=== PATIENT | female | born 1940 | race Caucasian/White ===

== ENCOUNTER → 2018-01-22 07:18 | Outpatient (CLI) | payer MEDICARE, OTHER, SELFPAY ==
[2018-01-22 09:21] LABS: Absolute Lymphocyte Count 1.18 X10^3/ul (0.83-4.51); Absolute Neutrophil Count 3.4 X10^3/uL (2.0-7.7); Basophil# 0.03 X10^3/uL; Basophil% 0.6 % (0-1); Eosinophil# 0.23 X10^3/uL; Eosinophils% 4.4 % (0-5); Hematocrit 45.4 % (37-47); Hemoglobin 14.8 g/dl (12.0-15.0); Lymphocyte # 1.18 X10^3/ul (4.0); Lymphocyte % 22.4 % (19-41); Mean Corp Hgb Conc 32.6 g/gl (32-36); Mean Corpuscular Volume 98.3 fL (81-99); Mean Platelet Vol. 10.4 fl (6.2-12.0); Monocyte# 0.41 X10^3/uL; Monocyte% 7.8 % (0-10); Neutrophil # 3.41 X10^3/uL (2.7-7.7); Neutrophil % 64.8 % (47-70); Platelet Count 214 K/mm3 (150-450); RBC Distribution Width SD 46.4 fl (35.1-43.9); Red Blood Count 4.62 M/mm3 (4.2-5.4); White Blood Count 5.3 K/mm3 (4.4-11.0)
[2018-01-22 09:35] LABS: POSITIVE COUNT NO; POSITIVE DIFFERENTIAL NO; POSITIVE MORPHOLOGY NO
[2018-01-22 09:48] LABS: ALB/GLOB Ratio 1.1 RATIO (0.9-2.4); AST(SGOT) 32 U/L (15-37); Alanine Aminotransfer ALT/SGPT 34 U/L (13-56); Albumin, Serum 3.7 g/dL (3.2-5.0); Alkaline Phosphatase 71 U/L (45-117); Anion Gap 5 (5-15); BUN 18 mg/dL (7-18); BUN/Creat Ratio 25.1 RATIO (10-20); Calcium,Total 8.8 mg/dL (8.5-10.1); Chloride 107 mmol/L (98-107); Creatinine, Serum 0.72 mg/dL (0.55-1.02); EST Glomerular Filtration Rate 84 mL/min (>60); Est Glom Filt Rate - Afr Amer 102 mL/min (>60); Globulin 3.4 g/dL (2.2-4.2); Glucose 86 mg/dL (74-106); Potassium 3.7 mmol/L (3.5-5.1); Protein, Total 7.1 g/dL (6.4-8.2); Sodium Level 142 mmol/L (136-145)
== END ==
PROVIDERS: Family Provider Internal Medicine; PCP Internal Medicine; Visit Provider Internal Medicine Rheumatology
DX: H20.9 Unspecified iridocyclitis (principal); H35.063 Retinal vasculitis, bilateral; M18.0 Bilateral primary osteoarthritis of first carpometacarpal joints; M47.892 Other spondylosis, cervical region; Z79.899 Other long term (current) drug therapy
CPT/HCPCS: 36415; 80053; 85025

== ENCOUNTER → 2018-02-28 06:49 | Outpatient (CLI) | payer MEDICARE, OTHER, SELFPAY ==
[2018-02-28 08:09] LABS: AST(SGOT) 29 U/L (15-37); Alanine Aminotransfer ALT/SGPT 29 U/L (13-56); Albumin, Serum 3.8 g/dL (3.2-5.0); Alkaline Phosphatase 68 U/L (45-117); Bilirubin, Direct 0.15 mg/dL (0.00-0.30); Globulin 3.2 g/dL (2.2-4.2)
== END ==
PROVIDERS: Family Provider Internal Medicine; PCP Internal Medicine; Visit Provider Internal Medicine Rheumatology
DX: H20.9 Unspecified iridocyclitis (principal); H35.063 Retinal vasculitis, bilateral; M18.0 Bilateral primary osteoarthritis of first carpometacarpal joints; M47.892 Other spondylosis, cervical region; I10 Essential (primary) hypertension; Z79.899 Other long term (current) drug therapy
CPT/HCPCS: 36415; 80076

== ENCOUNTER → 2018-04-21 07:37 | Outpatient (CLI) | payer MEDICARE, OTHER, SELFPAY ==
[2018-04-21 08:06] LABS: Absolute Lymphocyte Count 1.24 X10^3/ul (0.83-4.51); Basophil# 0.06 X10^3/uL; Eosinophil# 0.21 X10^3/uL; Eosinophils% 3.5 % (0-5); Hemoglobin 13.9 g/dl (12.0-15.0); Lymphocyte # 1.24 X10^3/ul (4.0); Lymphocyte % 20.6 % (19-41); Mean Corp Hgb Conc 33.1 g/gl (32-36); Mean Corpuscular Hgb 32.6 pg (27.0-32.0); Mean Corpuscular Volume 98.6 fL (81-99); Mean Platelet Vol. 10.2 fl (6.2-12.0); Monocyte# 0.47 X10^3/uL; Monocyte% 7.8 % (0-10); Neutrophil # 4.02 X10^3/uL (2.7-7.7); Neutrophil % 66.8 % (47-70); POSITIVE COUNT NO; POSITIVE DIFFERENTIAL NO; POSITIVE MORPHOLOGY NO; Platelet Count 219 K/mm3 (150-450); RBC Distribution Width CV 12.4 % (11.6-14.6); RBC Distribution Width SD 43.8 fl (35.1-43.9); Red Blood Count 4.26 M/mm3 (4.2-5.4)
[2018-04-21 08:29] LABS: ALB/GLOB Ratio 1.2 RATIO (0.9-2.4); AST(SGOT) 31 U/L (15-37); Alanine Aminotransfer ALT/SGPT 32 U/L (13-56); Albumin, Serum 3.5 g/dL (3.2-5.0); Alkaline Phosphatase 67 U/L (45-117); Anion Gap 8 (5-15); BUN 18 mg/dL (7-18); BUN/Creat Ratio 25.6 RATIO (10-20); Calcium,Total 8.5 mg/dL (8.5-10.1); Chloride 109 mmol/L (98-107); EST Glomerular Filtration Rate 86 mL/min (>60); Est Glom Filt Rate - Afr Amer 104 mL/min (>60); Globulin 2.9 g/dL (2.2-4.2); Glucose 106 mg/dL (74-106); Protein, Total 6.4 g/dL (6.4-8.2); Sodium Level 146 mmol/L (136-145)
== END ==
PROVIDERS: Family Provider Internal Medicine; PCP Internal Medicine; Visit Provider Internal Medicine Rheumatology
DX: H20.9 Unspecified iridocyclitis (principal); H35.063 Retinal vasculitis, bilateral; M18.0 Bilateral primary osteoarthritis of first carpometacarpal joints; M47.892 Other spondylosis, cervical region; I10 Essential (primary) hypertension; Z79.899 Other long term (current) drug therapy
CPT/HCPCS: 36415; 80053; 85025

== ENCOUNTER 2018-06-01 10:26 | Emergency (ER) | payer MEDICARE, OTHER, SELFPAY ==
[2018-06-01 10:28] VITALS: BP 169/100; PULSE 74; RESP 16; TEMP 36.7; O2SAT 98; BMI 20.5
--- NOTE | 2018-06-01 10:42 | NURSING ---
no lw or poa
--- NOTE | 2018-06-01 10:57 | ED.DCSUM_ITS ---
- ER Visit Summary Date of Service: 06/01/18 Chief Complaint: Chin laceration History of Present Illness: The patient is a 77 F who sustained a fall on concrete this morning causing abrasions to the bilateral knee and a laceration to her chin. She denies any headache. She denies any jaw pain. No intraoral injuries. No neck pain. Physical Examination: Afebrile vital signs are stable There are bilateral superficial knee abrasions. There is a 1 cm gaping chin laceration. There is no active bleeding. No intraoral trauma noted. The CT sheet for further details Emergency Department Course and Treatment: Was locally anesthetized using 1% lidocaine and washed with Shur-Clens and explored. It was closed using a total of 3 5-0 simple interrupted Ethilon sutures. Wound care discussed with patient. Advised her she does not know her last tetanus shot to call her doctor 's office in the morning and see if they have records. Impression: 1. 1 cm chin laceration with repair This note was generated with [employer] dictation software. It may contain incorrect words, spelling, and punctuation that were not noted in review of the chart prior to signing ED Disposition - Plan for ED Patient: Disposition: Home or Assisted Living Chief Complaint: Laceration Instructions: ED Laceration Chin Sutr Tape Referrals: Anu Hernandez MD [Primary Care Provider] - 7 Days for suture removal
== END 2018-06-01 11:05 | disposition home or self-care (01) ==
PROVIDERS: Emergency Provider Emergency Medicine; Family Provider Internal Medicine; PCP Internal Medicine
DX: S01.81XA Laceration without foreign body of other part of head, initial encounter (principal); S80.212A Abrasion, left knee, initial encounter; S80.211A Abrasion, right knee, initial encounter; I10 Essential (primary) hypertension; Z79.82 Long term (current) use of aspirin; Z79.899 Other long term (current) drug therapy; W18.30XA Fall on same level, unspecified, initial encounter; Y93.01 Activity, walking, marching and hiking; Y92.89 Other specified places as the place of occurrence of the external cause; Y99.8 Other external cause status
CPT/HCPCS: 12011; 99282

== ENCOUNTER → 2018-07-07 07:13 | Outpatient (CLI) | payer MEDICARE, OTHER, SELFPAY ==
[2018-07-07 08:03] LABS: Absolute Lymphocyte Count 1.15 X10^3/ul (0.83-4.51); Absolute Neutrophil Count 3.6 X10^3/uL (2.0-7.7); Basophil# 0.03 X10^3/uL; Basophil% 0.6 % (0-1); Eosinophil# 0.21 X10^3/uL; Eosinophils% 3.9 % (0-5); Hematocrit 41.3 % (37-47); Hemoglobin 13.3 g/dl (12.0-15.0); Lymphocyte # 1.15 X10^3/ul (4.0); Lymphocyte % 21.5 % (19-41); Mean Corp Hgb Conc 32.2 g/gl (32-36); Mean Corpuscular Hgb 31.3 pg (27.0-32.0); Mean Corpuscular Volume 97.2 fL (81-99); Mean Platelet Vol. 10.1 fl (6.2-12.0); Monocyte# 0.38 X10^3/uL; Monocyte% 7.1 % (0-10); Neutrophil # 3.58 X10^3/uL (2.7-7.7); Neutrophil % 66.9 % (47-70); Platelet Count 201 K/mm3 (150-450); RBC Distribution Width CV 12.8 % (11.6-14.6); RBC Distribution Width SD 44.3 fl (35.1-43.9); Red Blood Count 4.25 M/mm3 (4.2-5.4); White Blood Count 5.4 K/mm3 (4.4-11.0)
[2018-07-07 08:05] LABS: POSITIVE COUNT NO; POSITIVE DIFFERENTIAL NO; POSITIVE MORPHOLOGY NO
[2018-07-07 08:31] LABS: ALB/GLOB Ratio 1.2 RATIO (0.9-2.4); AST(SGOT) 32 U/L (15-37); Alanine Aminotransfer ALT/SGPT 30 U/L (13-56); Albumin, Serum 3.5 g/dL (3.2-5.0); Alkaline Phosphatase 60 U/L (45-117); Anion Gap 11 (5-15); BUN 13 mg/dL (7-18); BUN/Creat Ratio 17.2 RATIO (10-20); Calcium,Total 8.5 mg/dL (8.5-10.1); Chloride 109 mmol/L (98-107); Creatinine, Serum 0.75 mg/dL (0.55-1.02); EST Glomerular Filtration Rate 79 mL/min (>60); Est Glom Filt Rate - Afr Amer 96 mL/min (>60); Globulin 2.9 g/dL (2.2-4.2); Glucose 101 mg/dL (74-106); Potassium 3.9 mmol/L (3.5-5.1); Protein, Total 6.4 g/dL (6.4-8.2); Sodium Level 146 mmol/L (136-145)
== END ==
PROVIDERS: Family Provider Internal Medicine; PCP Internal Medicine; Visit Provider Internal Medicine Rheumatology
DX: H20.9 Unspecified iridocyclitis (principal); H35.063 Retinal vasculitis, bilateral; M18.0 Bilateral primary osteoarthritis of first carpometacarpal joints; M47.892 Other spondylosis, cervical region; I10 Essential (primary) hypertension; Z79.899 Other long term (current) drug therapy
CPT/HCPCS: 36415; 80053; 85025

== ENCOUNTER → 2018-10-06 09:20 | Outpatient (CLI) | payer MEDICARE, OTHER, SELFPAY ==
[2018-10-06 09:57] LABS: Absolute Lymphocyte Count 1.28 X10^3/ul (0.83-4.51); Absolute Neutrophil Count 4.7 X10^3/uL (2.0-7.7); Basophil# 0.04 X10^3/uL; Basophil% 0.6 % (0-1); Eosinophil# 0.19 X10^3/uL; Eosinophils% 2.8 % (0-5); Hemoglobin 13.8 g/dl (12.0-15.0); Lymphocyte # 1.28 X10^3/ul (4.0); Lymphocyte % 18.7 % (19-41); Mean Corp Hgb Conc 32.1 g/gl (32-36); Mean Corpuscular Hgb 31.9 pg (27.0-32.0); Mean Corpuscular Volume 99.5 fL (81-99); Monocyte# 0.59 X10^3/uL; Monocyte% 8.6 % (0-10); Neutrophil # 4.72 X10^3/uL (2.7-7.7); Neutrophil % 69.2 % (47-70); Platelet Count 224 K/mm3 (150-450); RBC Distribution Width CV 12.6 % (11.6-14.6); RBC Distribution Width SD 45.7 fl (35.1-43.9); Red Blood Count 4.32 M/mm3 (4.2-5.4); White Blood Count 6.8 K/mm3 (4.4-11.0)
[2018-10-06 09:59] LABS: POSITIVE COUNT NO; POSITIVE DIFFERENTIAL NO; POSITIVE MORPHOLOGY NO
[2018-10-06 10:21] LABS: ALB/GLOB Ratio 1.3 RATIO (0.9-2.4); AST(SGOT) 32 U/L (15-37); Alanine Aminotransfer ALT/SGPT 35 U/L (13-56); Albumin, Serum 3.8 g/dL (3.2-5.0); Alkaline Phosphatase 64 U/L (45-117); Anion Gap 5 (5-15); BUN 17 mg/dL (7-18); BUN/Creat Ratio 25.8 RATIO (10-20); Calcium,Total 9.1 mg/dL (8.5-10.1); Chloride 108 mmol/L (98-107); Creatinine, Serum 0.66 mg/dL (0.55-1.02); EST Glomerular Filtration Rate 93 mL/min (>60); Est Glom Filt Rate - Afr Amer 112 mL/min (>60); Glucose 87 mg/dL (74-106); Protein, Total 6.8 g/dL (6.4-8.2); Sodium Level 141 mmol/L (136-145)
== END ==
PROVIDERS: Family Provider Internal Medicine; PCP Internal Medicine; Referring Provider Internal Medicine Rheumatology; Visit Provider Internal Medicine Rheumatology
DX: H20.9 Unspecified iridocyclitis (principal); H35.063 Retinal vasculitis, bilateral; M18.0 Bilateral primary osteoarthritis of first carpometacarpal joints; M47.892 Other spondylosis, cervical region; I10 Essential (primary) hypertension; Z79.899 Other long term (current) drug therapy
CPT/HCPCS: 36415; 80053; 85025

== ENCOUNTER → 2018-10-09 09:51 | Outpatient (CLI) | payer MEDICARE, OTHER, SELFPAY ==
[2018-10-09 10:44] LABS: Erythrocyte Sedimentation Rate 2 mm/hr (0-30)
[2018-10-09 11:03] LABS: CRP < 2.90 mg/L (0.0-3.0)
== END ==
PROVIDERS: Family Provider Internal Medicine; PCP Internal Medicine
DX: H44.113 Panuveitis, bilateral (principal)
CPT/HCPCS: 36415; 85652; 86140

== ENCOUNTER → 2019-01-05 12:49 | Outpatient (CLI) | payer MEDICARE, OTHER, SELFPAY ==
[2019-01-05 13:31] LABS: Absolute Lymphocyte Count 1.37 X10^3/ul (0.83-4.51); Absolute Neutrophil Count 5.4 X10^3/uL (2.0-7.7); Basophil# 0.03 X10^3/uL; Basophil% 0.4 % (0-1); Eosinophil# 0.11 X10^3/uL; Eosinophils% 1.5 % (0-5); Hematocrit 41.6 % (37-47); Lymphocyte # 1.37 X10^3/ul (4.0); Lymphocyte % 18.4 % (19-41); Mean Corp Hgb Conc 33.7 g/gl (32-36); Mean Corpuscular Hgb 32.6 pg (27.0-32.0); Mean Platelet Vol. 10.5 fl (6.2-12.0); Monocyte# 0.49 X10^3/uL; Monocyte% 6.6 % (0-10); Neutrophil # 5.43 X10^3/uL (2.7-7.7); Neutrophil % 72.8 % (47-70); Platelet Count 231 K/mm3 (150-450); RBC Distribution Width CV 12.3 % (11.6-14.6); RBC Distribution Width SD 41.6 fl (35.1-43.9); Red Blood Count 4.29 M/mm3 (4.2-5.4); White Blood Count 7.5 K/mm3 (4.4-11.0)
[2019-01-05 13:42] LABS: POSITIVE COUNT NO; POSITIVE DIFFERENTIAL NO; POSITIVE MORPHOLOGY NO
[2019-01-05 14:12] LABS: ALB/GLOB Ratio 1.3 RATIO (0.9-2.4); AST(SGOT) 27 U/L (15-37); Alanine Aminotransfer ALT/SGPT 28 U/L (13-56); Albumin, Serum 3.8 g/dL (3.2-5.0); Alkaline Phosphatase 67 U/L (45-117); Anion Gap 9 (5-15); BUN 21 mg/dL (7-18); BUN/Creat Ratio 28.1 RATIO (10-20); Calcium,Total 9.4 mg/dL (8.5-10.1); Chloride 109 mmol/L (98-107); Creatinine, Serum 0.75 mg/dL (0.55-1.02); EST Glomerular Filtration Rate 80 mL/min (>60); Est Glom Filt Rate - Afr Amer 97 mL/min (>60); Glucose 111 mg/dL (74-106); Potassium 3.6 mmol/L (3.5-5.1); Protein, Total 6.8 g/dL (6.4-8.2); Sodium Level 141 mmol/L (136-145)
== END ==
PROVIDERS: Family Provider Internal Medicine; PCP Internal Medicine; Referring Provider Internal Medicine Rheumatology; Visit Provider Internal Medicine Rheumatology
DX: H20.9 Unspecified iridocyclitis (principal); H35.063 Retinal vasculitis, bilateral; M18.0 Bilateral primary osteoarthritis of first carpometacarpal joints; M47.892 Other spondylosis, cervical region; I10 Essential (primary) hypertension; Z79.899 Other long term (current) drug therapy
CPT/HCPCS: 36415; 80053; 85025

== ENCOUNTER → 2019-04-01 | Outpatient (CLI) | payer MEDICARE, OTHER, SELFPAY ==
[2019-04-01 06:51] LABS: Absolute Lymphocyte Count 1.16 X10^3/ul (0.83-4.51); Absolute Neutrophil Count 4.3 X10^3/uL (2.0-7.7); Basophil# 0.04 X10^3/uL; Basophil% 0.7 % (0-1); Eosinophils% 3.3 % (0-5); Hematocrit 43.6 % (37-47); Hemoglobin 14.4 g/dl (12.0-15.0); Lymphocyte # 1.16 X10^3/ul (4.0); Mean Corpuscular Hgb 32.3 pg (27.0-32.0); Mean Corpuscular Volume 97.8 fL (81-99); Mean Platelet Vol. 9.9 fl (6.2-12.0); Monocyte# 0.39 X10^3/uL; Monocyte% 6.4 % (0-10); Neutrophil # 4.32 X10^3/uL (2.7-7.7); Neutrophil % 70.4 % (47-70); Platelet Count 218 K/mm3 (150-450); RBC Distribution Width CV 13.2 % (11.6-14.6); Red Blood Count 4.46 M/mm3 (4.2-5.4); White Blood Count 6.1 K/mm3 (4.4-11.0)
[2019-04-01 06:52] LABS: POSITIVE COUNT NO; POSITIVE DIFFERENTIAL NO; POSITIVE MORPHOLOGY NO
[2019-04-01 07:19] LABS: ALB/GLOB Ratio 1.2 RATIO (0.9-2.4); AST(SGOT) 34 U/L (15-37); Alanine Aminotransfer ALT/SGPT 33 U/L (13-56); Albumin, Serum 3.5 g/dL (3.2-5.0); Alkaline Phosphatase 62 U/L (45-117); Anion Gap 6 (5-15); BUN 28 mg/dL (7-18); BUN/Creat Ratio 36.9 RATIO (10-20); Calcium,Total 8.8 mg/dL (8.5-10.1); Chloride 108 mmol/L (98-107); Creatinine, Serum 0.76 mg/dL (0.55-1.02); EST Glomerular Filtration Rate 78 mL/min (>60); Est Glom Filt Rate - Afr Amer 95 mL/min (>60); Globulin 2.9 g/dL (2.2-4.2); Glucose 119 mg/dL (74-106); Potassium 4.3 mmol/L (3.5-5.1); Protein, Total 6.4 g/dL (6.4-8.2); Sodium Level 143 mmol/L (136-145)
== END | disposition home or self-care (01) ==
LOC: LAB 06:34
PROVIDERS: Family Provider Internal Medicine; PCP Internal Medicine; Referring Provider Internal Medicine Rheumatology; Visit Provider Internal Medicine Rheumatology
DX: H20.9 Unspecified iridocyclitis (principal); H35.063 Retinal vasculitis, bilateral; M18.0 Bilateral primary osteoarthritis of first carpometacarpal joints; M47.892 Other spondylosis, cervical region; I10 Essential (primary) hypertension; Z79.899 Other long term (current) drug therapy
CPT/HCPCS: 36415; 80053; 85025

== ENCOUNTER → 2019-04-15 | Outpatient (CLI) | payer MEDICARE, OTHER, SELFPAY ==
[2019-04-15 12:40] LABS: Synovial Fld Mononuclear WBC % 57.3 %; Synovial Fld Polynuclear WBC # 0.038 10^3/ul; Synovial Fld Polynuclear WBC % 42.7 %
[2019-04-15 13:07] LABS: AUTO B FLUID DILUENT BKGD CT WBC <0.1 RBC <0.01 (W<.1,R<.01); Appearance /Synovial Fluid Clear (CLEAR); Viscosity / Synovial Fluid Liquid (HIGH)
[2019-04-15 13:09] LABS: RBC /Synovial Fluid 1125 /mm3 (0)
[2019-04-15 13:29] LABS: Lymph 40 %; Neutrophil 60 % (0-25)
[2019-04-16 12:23] LABS: Pathologist Comment Reviewed
== END | disposition home or self-care (01) ==
LOC: LABSPEC 12:07
PROVIDERS: Family Provider Internal Medicine; PCP Internal Medicine; Referring Provider Internal Medicine Rheumatology; Visit Provider Internal Medicine Rheumatology
DX: H20.9 Unspecified iridocyclitis (principal); Z79.899 Other long term (current) drug therapy; H35.063 Retinal vasculitis, bilateral; M25.562 Pain in left knee; M18.0 Bilateral primary osteoarthritis of first carpometacarpal joints; M47.892 Other spondylosis, cervical region; I10 Essential (primary) hypertension
CPT/HCPCS: 89050; 89051

== ENCOUNTER → 2019-06-22 | Outpatient (CLI) | payer MEDICARE, OTHER, SELFPAY ==
[2019-06-22 12:34] LABS: Absolute Lymphocyte Count 1.48 X10^3/uL (0.83-4.51); Absolute Neutrophil Count 5.1 X10^3/uL (2.0-7.7); Basophil# 0.03 X10^3/uL; Basophil% 0.4 % (0-1); Eosinophil# 0.18 X10^3/uL; Eosinophils% 2.4 % (0-5); Hemoglobin 15.2 g/dL (12.0-15.0); Lymphocyte # 1.48 X10^3/ul (4.0); Lymphocyte % 20.1 % (19-41); Mean Corpuscular Hgb 32.6 pg (27.0-32.0); Mean Corpuscular Volume 98.7 fL (81-99); Mean Platelet Vol. 10.2 fl (6.2-12.0); Monocyte# 0.52 X10^3/uL; NRBC Flagged by Analyzer 0 % (0-5); Neutrophil # 5.14 X10^3/uL (2.7-7.7); Neutrophil % 69.7 % (47-70); Platelet Count 251 K/mm3 (150-450); RBC Distribution Width CV 12.3 % (11.6-14.6); RBC Distribution Width SD 44.6 fl (35.1-43.9); Red Blood Count 4.66 M/mm3 (4.2-5.4); White Blood Count 7.4 K/mm3 (4.4-11.0)
[2019-06-22 13:03] LABS: ALB/GLOB Ratio 1.2 RATIO (0.9-2.4); AST(SGOT) 33 U/L (15-37); Alanine Aminotransfer ALT/SGPT 34 U/L (13-56); Albumin, Serum 3.7 g/dL (3.2-5.0); Alkaline Phosphatase 79 U/L (45-117); Anion Gap 7 (5-15); BUN 13 mg/dL (7-18); BUN/Creat Ratio 18.9 RATIO (10-20); Calcium,Total 9.7 mg/dL (8.5-10.1); Chloride 107 mmol/L (98-107); Creatinine, Serum 0.69 mg/dL (0.55-1.02); EST Glomerular Filtration Rate 88 mL/min (>60); Est Glom Filt Rate - Afr Amer 106 mL/min (>60); Globulin 3.2 g/dL (2.2-4.2); Glucose 106 mg/dL (74-106); Potassium 4.2 mmol/L (3.5-5.1); Protein, Total 6.9 g/dL (6.4-8.2); Sodium Level 144 mmol/L (136-145)
== END | disposition home or self-care (01) ==
LOC: LAB 10:40
PROVIDERS: Family Provider Internal Medicine; PCP Internal Medicine; Referring Provider Internal Medicine Rheumatology; Visit Provider Internal Medicine Rheumatology
DX: H20.9 Unspecified iridocyclitis (principal); H35.063 Retinal vasculitis, bilateral; M25.562 Pain in left knee; M18.0 Bilateral primary osteoarthritis of first carpometacarpal joints; M47.892 Other spondylosis, cervical region; I10 Essential (primary) hypertension; Z79.899 Other long term (current) drug therapy
CPT/HCPCS: 36415; 80053; 85025

== ENCOUNTER 2019-07-31 10:28 | Outpatient (RCR) | payer MEDICARE, OTHER, SELFPAY ==
[2019-07-31 10:48] LABS: Potassium 3.8 mmol/L (3.5-5.1)
[2019-07-31 11:01] LABS: Hemoglobin A1c 5.3 % (4.2-6.3)
== END 2019-08-01 23:59 ==
LOC: HHLAB 10:28
PROVIDERS: Family Provider Internal Medicine; PCP Internal Medicine; Referring Provider Internal Medicine; Visit Provider Internal Medicine
DX: E87.6 Hypokalemia (principal); H20.9 Unspecified iridocyclitis; H35.069 Retinal vasculitis, unspecified eye; Z79.899 Other long term (current) drug therapy
CPT/HCPCS: 83036; 84132

== ENCOUNTER → 2019-09-28 07:14 | Outpatient (CLI) | payer MEDICARE, OTHER, SELFPAY ==
[2019-09-28 07:36] LABS: Absolute Lymphocyte Count 1.38 X10^3/uL (0.83-4.51); Basophil# 0.05 X10^3/uL; Basophil% 0.7 % (0-1); Eosinophil# 0.26 X10^3/uL; Eosinophils% 3.6 % (0-5); Hematocrit 43.1 % (37-47); Hemoglobin 14.2 g/dL (12.0-15.0); Lymphocyte # 1.38 X10^3/ul (4.0); Mean Corp Hgb Conc 32.9 g/dL (32-36); Mean Corpuscular Hgb 32.9 pg (27.0-32.0); Mean Corpuscular Volume 99.8 fL (81-99); Mean Platelet Vol. 9.6 fl (6.2-12.0); Monocyte# 0.57 X10^3/uL; Monocyte% 7.8 % (0-10); NRBC Flagged by Analyzer 0 % (0-5); Neutrophil # 4.98 X10^3/uL (2.7-7.7); Neutrophil % 68.5 % (47-70); Platelet Count 256 K/mm3 (150-450); RBC Distribution Width CV 12.6 % (11.6-14.6); RBC Distribution Width SD 46.3 fl (35.1-43.9); Red Blood Count 4.32 M/mm3 (4.2-5.4); White Blood Count 7.3 K/mm3 (4.4-11.0)
[2019-09-28 08:01] LABS: ALB/GLOB Ratio 1.1 RATIO (0.9-2.4); AST(SGOT) 27 U/L (15-37); Alanine Aminotransfer ALT/SGPT 29 U/L (13-56); Albumin, Serum 3.9 g/dL (3.2-5.0); Alkaline Phosphatase 82 U/L (45-117); Anion Gap 4 (5-15); BUN 13 mg/dL (7-18); Calcium,Total 9.9 mg/dL (8.5-10.1); Chloride 107 mmol/L (98-107); Creatinine, Serum 0.65 mg/dL (0.55-1.02); EST Glomerular Filtration Rate 94 mL/min (>60); Est Glom Filt Rate - Afr Amer 114 mL/min (>60); Globulin 3.4 g/dL (2.2-4.2); Glucose 81 mg/dL (74-106); Potassium 3.5 mmol/L (3.5-5.1); Protein, Total 7.3 g/dL (6.4-8.2); Sodium Level 141 mmol/L (136-145)
== END ==
PROVIDERS: Family Provider Internal Medicine; PCP Internal Medicine; Referring Provider Internal Medicine Rheumatology; Visit Provider Internal Medicine Rheumatology
DX: H20.9 Unspecified iridocyclitis (principal); H35.063 Retinal vasculitis, bilateral; M25.562 Pain in left knee; M18.0 Bilateral primary osteoarthritis of first carpometacarpal joints; M47.892 Other spondylosis, cervical region; I10 Essential (primary) hypertension; Z79.899 Other long term (current) drug therapy
CPT/HCPCS: 36415; 80053; 85025

== ENCOUNTER → 2019-11-17 09:35 | Outpatient (CLI) | payer MEDICARE, OTHER, SELFPAY ==
--- NOTE | 2019-11-18 09:20 | PFT ---
INTRODUCTION: The patient is a 79-year-old female that presents for pulmonary function studies secondary to a diagnosis of chronic cough. Respiratory therapy reports good patient effort. Bronchodilators were used during testing. INTERPRETATION: Forced expiration spirometry demonstrates no evidence of a large airways obstructive ventilatory defect. There was no significant response to aerosolized bronchodilators, based upon strict ATS criteria. Spirograms are of good quality and plateau normally. Body plethysmography was performed and reveals lung volumes to be within normal limits. Diffusing capacity by single breath CO is also within normal limits at 93% of predicted. IMPRESSION: Normal pulmonary function studies.
== END ==
PROVIDERS: Family Provider Internal Medicine; PCP Internal Medicine; Referring Provider Internal Medicine; Visit Provider Internal Medicine
DX: R05 Cough (principal)
CPT/HCPCS: 94060; 94726; 94729

== ENCOUNTER → 2019-12-22 11:04 | Outpatient (CLI) | payer MEDICARE, OTHER, SELFPAY ==
[2019-12-22 12:43] LABS: Absolute Lymphocyte Count 1.65 X10^3/uL (0.83-4.51); Absolute Neutrophil Count 5.5 X10^3/uL (2.0-7.7); Basophil# 0.08 X10^3/uL; Eosinophil# 0.15 X10^3/uL; Eosinophils% 1.8 % (0-5); Hematocrit 40.4 % (37-47); Hemoglobin 13.4 g/dL (12.0-15.0); Lymphocyte # 1.65 X10^3/ul (4.0); Lymphocyte % 20.2 % (19-41); Mean Corp Hgb Conc 33.2 g/dL (32-36); Mean Corpuscular Hgb 31.9 pg (27.0-32.0); Mean Corpuscular Volume 96.2 fL (81-99); Mean Platelet Vol. 10.6 fl (6.2-12.0); Monocyte# 0.69 X10^3/uL; Monocyte% 8.5 % (0-10); NRBC Flagged by Analyzer 0 % (0-5); Neutrophil # 5.54 X10^3/uL (2.7-7.7); Platelet Count 218 K/mm3 (150-450); RBC Distribution Width CV 12.5 % (11.6-14.6); RBC Distribution Width SD 43.7 fl (35.1-43.9); White Blood Count 8.2 K/mm3 (4.4-11.0)
[2019-12-22 13:07] LABS: ALB/GLOB Ratio 1.1 RATIO (0.9-2.4); AST(SGOT) 26 U/L (15-37); Alanine Aminotransfer ALT/SGPT 32 U/L (13-56); Albumin, Serum 3.6 g/dL (3.2-5.0); Alkaline Phosphatase 79 U/L (45-117); Anion Gap 6 (5-15); BUN 16 mg/dL (7-18); BUN/Creat Ratio 20.8 RATIO (10-20); Calcium,Total 9.2 mg/dL (8.5-10.1); Chloride 106 mmol/L (98-107); Creatinine, Serum 0.77 mg/dL (0.55-1.02); EST Glomerular Filtration Rate 77 mL/min (>60); Est Glom Filt Rate - Afr Amer 93 mL/min (>60); Globulin 3.2 g/dL (2.2-4.2); Glucose 103 mg/dL (74-106); Potassium 3.7 mmol/L (3.5-5.1); Protein, Total 6.8 g/dL (6.4-8.2); Sodium Level 138 mmol/L (136-145)
== END ==
PROVIDERS: PCP Internal Medicine; Referring Provider Internal Medicine Rheumatology; Visit Provider Internal Medicine Rheumatology
DX: H20.9 Unspecified iridocyclitis (principal); H35.063 Retinal vasculitis, bilateral; M18.0 Bilateral primary osteoarthritis of first carpometacarpal joints; M17.0 Bilateral primary osteoarthritis of knee; M47.892 Other spondylosis, cervical region; Z79.899 Other long term (current) drug therapy
CPT/HCPCS: 36415; 80053; 85025

== ENCOUNTER → 2020-03-22 | Outpatient (CLI) | payer MEDICARE, OTHER, SELFPAY ==
[2020-03-22 14:40] LABS: Absolute Lymphocyte Count 1.38 X10^3/uL (0.83-4.51); Absolute Neutrophil Count 4.1 X10^3/uL (2.0-7.7); Basophil# 0.04 X10^3/uL; Basophil% 0.6 % (0-1); Eosinophil# 0.18 X10^3/uL; Eosinophils% 2.9 % (0-5); Hematocrit 42.8 % (37-47); Hemoglobin 13.9 g/dL (12.0-15.0); Lymphocyte # 1.38 X10^3/ul (4.0); Lymphocyte % 22.1 % (19-41); Mean Corp Hgb Conc 32.5 g/dL (32-36); Mean Corpuscular Volume 98.6 fL (81-99); Mean Platelet Vol. 10.4 fl (6.2-12.0); Monocyte# 0.52 X10^3/uL; Monocyte% 8.3 % (0-10); NRBC Flagged by Analyzer 0 % (0-5); Neutrophil % 65.8 % (47-70); Platelet Count 222 K/mm3 (150-450); RBC Distribution Width CV 12.5 % (11.6-14.6); RBC Distribution Width SD 44.7 fl (35.1-43.9); Red Blood Count 4.34 M/mm3 (4.2-5.4); White Blood Count 6.2 K/mm3 (4.4-11.0)
[2020-03-22 15:05] LABS: ALB/GLOB Ratio 1.2 RATIO (0.9-2.4); AST(SGOT) 32 U/L (15-37); Alanine Aminotransfer ALT/SGPT 32 U/L (13-56); Albumin, Serum 3.8 g/dL (3.2-5.0); Alkaline Phosphatase 72 U/L (45-117); Anion Gap 4 (5-15); BUN 18 mg/dL (7-18); BUN/Creat Ratio 24.2 RATIO (10-20); Calcium,Total 10.3 mg/dL (8.5-10.1); Chloride 109 mmol/L (98-107); Creatinine, Serum 0.74 mg/dL (0.55-1.02); EST Glomerular Filtration Rate 80 mL/min (>60); Est Glom Filt Rate - Afr Amer 97 mL/min (>60); Globulin 3.1 g/dL (2.2-4.2); Glucose 109 mg/dL (74-106); Potassium 3.6 mmol/L (3.5-5.1); Protein, Total 6.9 g/dL (6.4-8.2); Sodium Level 141 mmol/L (136-145)
== END | disposition home or self-care (01) ==
LOC: MTLAB 11:25
PROVIDERS: PCP Internal Medicine; Referring Provider Internal Medicine Rheumatology; Visit Provider Internal Medicine Rheumatology
DX: H20.9 Unspecified iridocyclitis (principal); H35.063 Retinal vasculitis, bilateral; M18.0 Bilateral primary osteoarthritis of first carpometacarpal joints; M17.0 Bilateral primary osteoarthritis of knee; M47.892 Other spondylosis, cervical region; I10 Essential (primary) hypertension; H40.9 Unspecified glaucoma; Z79.899 Other long term (current) drug therapy
CPT/HCPCS: 36415; 80053; 85025

== ENCOUNTER → 2020-06-14 | Outpatient (CLI) | payer MEDICARE, OTHER, SELFPAY ==
[2020-06-14 13:04] LABS: Absolute Lymphocyte Count 1.15 X10^3/uL (0.83-4.51); Absolute Neutrophil Count 5.2 X10^3/uL (2.0-7.7); Basophil# 0.04 X10^3/uL; Basophil% 0.6 % (0-1); Eosinophil# 0.17 X10^3/uL; Eosinophils% 2.4 % (0-5); Hematocrit 41.8 % (37-47); Hemoglobin 13.3 g/dL (12.0-15.0); Lymphocyte # 1.15 X10^3/ul (4.0); Lymphocyte % 16.2 % (19-41); Mean Corp Hgb Conc 31.8 g/dL (32-36); Mean Corpuscular Hgb 31.8 pg (27.0-32.0); Mean Platelet Vol. 10.4 fl (6.2-12.0); Monocyte# 0.52 X10^3/uL; Monocyte% 7.3 % (0-10); NRBC Flagged by Analyzer 0 % (0-5); Neutrophil % 73.2 % (47-70); Platelet Count 228 K/mm3 (150-450); RBC Distribution Width CV 12.2 % (11.6-14.6); RBC Distribution Width SD 43.9 fl (35.1-43.9); Red Blood Count 4.18 M/mm3 (4.2-5.4); White Blood Count 7.1 K/mm3 (4.4-11.0)
[2020-06-14 13:16] LABS: ALB/GLOB Ratio 1.2 RATIO (0.9-2.4); AST(SGOT) 24 U/L (15-37); Alanine Aminotransfer ALT/SGPT 24 U/L (13-56); Albumin, Serum 3.5 g/dL (3.2-5.0); Alkaline Phosphatase 64 U/L (45-117); Anion Gap 6 (5-15); BUN 18 mg/dL (7-18); BUN/Creat Ratio 20.9 RATIO (10-20); Calcium,Total 8.7 mg/dL (8.5-10.1); Chloride 105 mmol/L (98-107); Creatinine, Serum 0.86 mg/dL (0.55-1.02); EST Glomerular Filtration Rate 68 mL/min (>60); Est Glom Filt Rate - Afr Amer 82 mL/min (>60); Globulin 2.8 g/dL (2.2-4.2); Glucose 92 mg/dL (74-106); Potassium 3.4 mmol/L (3.5-5.1); Protein, Total 6.3 g/dL (6.4-8.2); Sodium Level 137 mmol/L (136-145)
== END | disposition home or self-care (01) ==
LOC: MTLAB 09:40
PROVIDERS: PCP Internal Medicine; Referring Provider Internal Medicine Rheumatology; Visit Provider Internal Medicine Rheumatology
DX: H20.9 Unspecified iridocyclitis (principal); H35.063 Retinal vasculitis, bilateral; M18.0 Bilateral primary osteoarthritis of first carpometacarpal joints; M17.0 Bilateral primary osteoarthritis of knee; M47.892 Other spondylosis, cervical region; I10 Essential (primary) hypertension; H40.9 Unspecified glaucoma; Z79.899 Other long term (current) drug therapy
CPT/HCPCS: 36415; 80053; 85025

== ENCOUNTER → 2020-09-12 | Outpatient (CLI) | payer MEDICARE, OTHER, SELFPAY ==
[2020-09-12 12:47] LABS: Absolute Lymphocyte Count 1.08 X10^3/uL (0.83-4.51); Absolute Neutrophil Count 4.6 X10^3/uL (2.0-7.7); Basophil# 0.06 X10^3/uL; Eosinophil# 0.18 X10^3/uL; Eosinophils% 2.9 % (0-5); Hematocrit 40.7 % (37-47); Hemoglobin 12.9 g/dL (12.0-15.0); Lymphocyte # 1.08 X10^3/ul (4.0); Lymphocyte % 17.3 % (19-41); Mean Corp Hgb Conc 31.7 g/dL (32-36); Mean Corpuscular Hgb 31.9 pg (27.0-32.0); Mean Corpuscular Volume 100.7 fL (81-99); Mean Platelet Vol. 9.6 fl (6.2-12.0); Monocyte# 0.33 X10^3/uL; Monocyte% 5.3 % (0-10); NRBC Flagged by Analyzer 0 % (0-5); Neutrophil # 4.58 X10^3/uL (2.7-7.7); Neutrophil % 73.2 % (47-70); Platelet Count 237 K/mm3 (150-450); RBC Distribution Width CV 12.7 % (11.6-14.6); RBC Distribution Width SD 47.1 fl (35.1-43.9); Red Blood Count 4.04 M/mm3 (4.2-5.4); White Blood Count 6.3 K/mm3 (4.4-11.0)
[2020-09-12 13:16] LABS: AST(SGOT) 29 U/L (15-37); Alanine Aminotransfer ALT/SGPT 27 U/L (13-56); Albumin, Serum 3.2 g/dL (3.2-5.0); Alkaline Phosphatase 74 U/L (45-117); Anion Gap 4 (5-15); BUN 15 mg/dL (7-18); BUN/Creat Ratio 19.4 RATIO (10-20); Calcium,Total 8.7 mg/dL (8.5-10.1); Chloride 108 mmol/L (98-107); Creatinine, Serum 0.77 mg/dL (0.55-1.02); EST Glomerular Filtration Rate 77 mL/min (>60); Est Glom Filt Rate - Afr Amer 93 mL/min (>60); Globulin 3.2 g/dL (2.2-4.2); Glucose 178 mg/dL (74-106); Potassium 3.7 mmol/L (3.5-5.1); Protein, Total 6.4 g/dL (6.4-8.2); Sodium Level 140 mmol/L (136-145)
== END | disposition home or self-care (01) ==
LOC: MTLAB 09:50
PROVIDERS: PCP Family Medicine; Referring Provider Internal Medicine Rheumatology; Visit Provider Internal Medicine Rheumatology
DX: H20.9 Unspecified iridocyclitis (principal); H35.063 Retinal vasculitis, bilateral; M18.0 Bilateral primary osteoarthritis of first carpometacarpal joints; M17.0 Bilateral primary osteoarthritis of knee; M47.892 Other spondylosis, cervical region; I10 Essential (primary) hypertension; H40.9 Unspecified glaucoma; Z79.899 Other long term (current) drug therapy
CPT/HCPCS: 36415; 80053; 85025

== ENCOUNTER → 2020-12-05 08:19 | Outpatient (CLI) | payer MEDICARE, OTHER, SELFPAY ==
[2020-12-05 10:10] LABS: Absolute Lymphocyte Count 1.12 X10^3/uL (0.83-4.51); Absolute Neutrophil Count 4.8 X10^3/uL (2.0-7.7); Basophil# 0.06 X10^3/uL; Basophil% 0.9 % (0-1); Eosinophil# 0.23 X10^3/uL; Eosinophils% 3.4 % (0-5); Hematocrit 41.9 % (37-47); Hemoglobin 13.3 g/dL (12.0-15.0); Lymphocyte # 1.12 X10^3/ul (4.0); Lymphocyte % 16.3 % (19-41); Mean Corp Hgb Conc 31.7 g/dL (32-36); Mean Corpuscular Hgb 31.5 pg (27.0-32.0); Mean Corpuscular Volume 99.3 fL (81-99); Mean Platelet Vol. 10.1 fl (6.2-12.0); Monocyte# 0.61 X10^3/uL; Monocyte% 8.9 % (0-10); NRBC Flagged by Analyzer 0 % (0-5); Neutrophil # 4.82 X10^3/uL (2.7-7.7); Neutrophil % 70.2 % (47-70); Platelet Count 231 K/mm3 (150-450); RBC Distribution Width CV 12.4 % (11.6-14.6); RBC Distribution Width SD 44.4 fl (35.1-43.9); Red Blood Count 4.22 M/mm3 (4.2-5.4); White Blood Count 6.9 K/mm3 (4.4-11.0)
[2020-12-05 10:28] LABS: ALB/GLOB Ratio 1.1 RATIO (0.9-2.4); AST(SGOT) 37 U/L (15-37); Alanine Aminotransfer ALT/SGPT 36 U/L (13-56); Albumin, Serum 3.5 g/dL (3.2-5.0); Alkaline Phosphatase 80 U/L (45-117); Anion Gap 4 (5-15); BUN 16 mg/dL (7-18); BUN/Creat Ratio 22.4 RATIO (10-20); Calcium,Total 8.8 mg/dL (8.5-10.1); Chloride 109 mmol/L (98-107); Creatinine, Serum 0.71 mg/dL (0.55-1.02); EST Glomerular Filtration Rate 84 mL/min (>60); Est Glom Filt Rate - Afr Amer 102 mL/min (>60); Globulin 3.1 g/dL (2.2-4.2); Glucose 112 mg/dL (74-106); Potassium 3.9 mmol/L (3.5-5.1); Protein, Total 6.6 g/dL (6.4-8.2); Sodium Level 141 mmol/L (136-145)
== END ==
PROVIDERS: PCP Family Medicine; Referring Provider Internal Medicine Rheumatology; Visit Provider Internal Medicine Rheumatology
DX: H20.9 Unspecified iridocyclitis (principal); H35.063 Retinal vasculitis, bilateral; M18.0 Bilateral primary osteoarthritis of first carpometacarpal joints; M17.0 Bilateral primary osteoarthritis of knee; M47.892 Other spondylosis, cervical region; I10 Essential (primary) hypertension; H40.9 Unspecified glaucoma; Z79.899 Other long term (current) drug therapy
CPT/HCPCS: 36415; 80053; 85025

== ENCOUNTER → 2021-02-07 | Outpatient (CLI) | payer MEDICARE, OTHER, SELFPAY ==
[2021-02-14 13:56] LABS: HPV APTIMA, High Risk Positive (Negative)
[2021-02-14 13:57] LABS: HPV Reflexed? YES, CHARGE PATIENT
== END | disposition home or self-care (01) ==
LOC: LABSPEC 02-20 13:27
PROVIDERS: PCP Family Medicine; Visit Provider Family Medicine
DX: N95.0 Postmenopausal bleeding (principal); Z12.4 Encounter for screening for malignant neoplasm of cervix; Z87.42 Personal history of other diseases of the female genital tract
CPT/HCPCS: 87624; 88175; G0145

== ENCOUNTER → 2021-02-21 14:38 | Outpatient (CLI) | payer MEDICARE, OTHER, SELFPAY ==
--- NOTE | 2021-02-21 15:00 | PET_ITS ---
EXAMINATION: FDG PET/CT INDICATIONS: A 80-year-old female with history of cervical carcinoma presenting for initial staging examination. COMPARISON EXAMINATION: None available INDEX LESION SIZE SUV INTERPRETATION Lower pelvis, uterine cervix 30.7 x 31.1-mm (frame 50) 14.1 Fulfills quantitative criteria for viable neoplasm Right upper lung-right upper lobe 1.5 (max) Quantitative criteria for viable neoplasm are not fulfilled, sequential radiologic investigation recommended. TECHNIQUE: Following the intravenous administration of 14.7 mCi of F-18 deoxyglucose via the left antecubital fossa, multiplanar image acquisitions of the neck, chest, abdomen and pelvis to level of mid thigh, obtained at one hour post radiopharmaceutical administration contemporaneously interpreted with the current CT of the neck, chest, abdomen and pelvis to level of mid thigh, dated 02/21/21 via coregistration reveal: SERUM GLUCOSE LEVEL: 72 mg/dl. HEIGHT: 66 inches. WEIGHT: 117 lbs. FINDINGS: 1. Focal increased glucose metabolism is defined in the lower left paramedian pelvic mesentery in the distribution of the uterine cervix generating a calculated maximal standard uptake value of 14.1. The maximal axial diameter of the corresponding metabolic, morphologic abnormality on review of CT of the pelvis dated 02/21/21 is 30.7-mm (transverse) x 31.1-mm (AP). 2. There is focal increased glucose concentration observed in the right upper posterior lung-right upper lobe generating a calculated maximal standard uptake value of 1.5. Quantitative criteria for neoplasm are not fulfilled. 3. Normal physiologic distribution of the radiopharmaceutical is apparent in the hepatic (2.5) and splenic parenchyma, both renal units, bladder and visualized intestinal tract. The visualized portion of the cerebral cortex demonstrate symmetric and preserved glucose metabolism. Diffuse radiopharmaceutical concentration is noted in all four quadrants of the abdomen and pelvis. Prominent radiopharmaceutical concentration observed in the left upper pelvic mesentery appears associated with the left ureter most consistent with physiologic tracer distribution. Pertinent CT findings are as follows: CHEST: Coronary arterial calcification is observed. Atherosclerotic calcification is defined in the thoracic aorta. The maximal axial diameter of the ascending thoracic aorta is 42.6-mm. Right and left axillary and scattered mediastinal soft tissue densities demonstrate no evidence of increased tracer uptake. There are no additional parenchymal densities-nodules defined in the right and left hemithorax with discernible increased FDG concentration. A linear density noted in the left lower anterolateral lung field is non-glucose avid. ABDOMEN AND PELVIS: There is atherosclerotic calcification defined in the abdominal aorta without evidence of dilatation-aneurysm formation. Pelvic arterial calcification is defined. There is evidence of apparent cholelithiasis. Bilateral inguinal soft tissue densities with fatty hilus reveal no evidence of increased tracer uptake. There is an apparent fluid density noted in the central aspect of the uterus without evidence of increased tracer uptake. SKELETAL: Degenerative changes are noted in the cervical, thoracic and lumbar spine without evidence of increased radiopharmaceutical concentration. PET/PET/CT Tumor Base -Thigh Init IMPRESSION: 1. ABNORMAL EXAMINATION INDICATIVE OF MALIGNANT VIABLE NEOPLASM. 2. Increased FDG concentration observed in the region of the uterine cervix fulfills quantitative criteria for viable neoplasm and is most consistent with the site of histologic confirmed primary cervical carcinoma. 3. Enhanced tracer uptake noted in the right upper lung-right upper lobe does not fulfill quantitative criteria for viable neoplasm. (Lema et al, Annals of Internal Medicine, 138:724, 2003). 4. Metabolic and/or anatomic stability may be ensured in the right upper lung-right upper lobe abnormality with repeat FDG PET study and/or CT of the thorax in 9-12 weeks to ensure stability, involution. (Xiu, Journal of Nuclear Medicine 45:88, P2004 Edilberto, Seminars in Thoracic and Cardiovascular Surgery 14:292, 2002). Electronic Signature Catarino Parker D.O. Accurate Quantification of SUVs for this report are calculated using the exclusive [employer] Technology.??Exclusive U.S. Patent [employer]? Technology (U.S. Patent No. [id number] [id number]). Electronically Signed: Catarino Parker DO at 21:57 EDT Tel , Service support ,
== END ==
LOC: ONC 14:39
PROVIDERS: PCP Family Medicine; Referring Provider Obstetrics & Gynecology Gynecologic Oncology; Visit Provider Obstetrics & Gynecology Gynecologic Oncology
DX: C56.1 Malignant neoplasm of right ovary (principal); C53.9 Malignant neoplasm of cervix uteri, unspecified
CPT/HCPCS: 78815; A9552

== ENCOUNTER 2021-03-05 14:12 | Emergency (ER) | payer MEDICARE, OTHER, SELFPAY ==
[2021-03-05 14:13] VITALS: BP 146/86; PULSE 115; RESP 18; TEMP 36.8; O2SAT 99; BMI 18.8
--- NOTE | 2021-03-05 15:01 | ED.RN ---
DR VO PAGED THROUGH [facility]
--- NOTE | 2021-03-05 15:39 | ED.VIS.GEN ---
History of Present Illness Chief Complaint: Wound Check Informant: Patient Narrative: 80-year-old female presenting with bleeding from her incision site. Patient had radical hysterectomy on Saturday at [facility]. She states that she was placed on Eliquis postop to prevent DVTs because she was not there immobile. She has no history of DVT/PE. Patient states that they found a spot on her uterus and were concerned for malignancy therefore they removed her uterus and ovaries. Patient will follow up later for radiation treatment. Patient states at this time she has no bleeding. She has no pain. She does not have nausea or vomiting. She is not dizzy or lightheaded. Past Medical History - Allergies and Home Meds Allergies/Adverse Reactions: Allergies ibuprofen Adverse Reaction (Verified 03/05/21 14:16) Nausea Opioids - Morphine Analogues Adverse Reaction (Verified 03/05/21 14:16) Other simvastatin Adverse Reaction (Verified 03/05/21 14:16) Other Primary Care Physician: Rosita Lentz MD [Primary Care Provider] - Past Medical History: - - Hypertension, osteoporosis, unknown uterine cancer Surgical History: - - Radical hysterectomy/oophorectomy Lives: Spouse/ Significant Other Smoking Status: Never smoker Review of Systems General: Denies: Chills, Fever, Sweats Eyes: Denies: Visual changes - bilaterally, Diplopia ENT: Denies: Rhinorrhea, Sore throat Cardiovascular: Denies: Chest pain, Palpitations Respiratory: Denies: Dyspnea, Cough, Dyspnea on exertion Gastrointestinal: Denies: Abdominal pain, Nausea, Vomiting, Diarrhea, Melena, Hematochezia Genitourinary: Denies: Dysuria, Hematuria, Frequency Musculoskeletal: Denies: Back pain, Extremity Pain Skin: Reports: - - Bleeding from right side of incision on her lower abdomen. Resolved.. Denies: Rash, Abscess Neurological: Denies: Headache, Weakness, Numbness Psych: Denies: Depression, Anxiety Hematologic: Reports: Easy bruising, Easy bleeding Physical Exam Vital Signs/Narrative: Vital Signs Temp Pulse Resp BP Pulse Ox 03/05/21 14:13 98.3 F 115 H 18 146/86 H 99 Inital Vital Signs reviewed: Yes General: Well nourished, No Acute Distress Head: Normocephalic, Atraumatic Eyes: Perrl, EOMI ENT: Moist mucous membranes, Nasal congestion Cardiovascular: Regular rate, Regular rhythm Respiratory: No distress, CTA bilaterally Skin: Pallor, - - Large horizontal incisional wound with margins well approximated with exception of mild dehiscence on the right side of the wound. There is no active bleeding. There is no sign of cellulitis. There is ecchymosis around the surgical site.. Negative for: No rash, Cyanosis Neurological: Alert, Oriented x3, Cranial nerves II-XII grossly intact Psychological: Normal affect, Normal Mood Diagnostic/Tx/Re-eval - Medical Decision Making 80-year-old female presenting for evaluation because she had some bleeding from her incision site. This is resolved. She has no systemic signs or symptoms. I did give her surgeon who recommended discontinuing the Eliquis now that she is more mobile. He states to have her call at 8:30 in the morning and he will get her in the office tomorrow to look at her incision site. Patient was informed of these instructions. She is given return precautions. She stable for discharge at this time. Impression: 1. Postop bleeding resolved ED Disposition - Plan for ED Patient: Disposition: Home or Assisted Living Instructions: ED Post Op Wound Check, Bleeding Referrals: Rosita Lentz MD [Primary Care Provider] -
[2021-03-05 15:48] VITALS: BP 155/75; PULSE 81; RESP 18; O2SAT 100
== END 2021-03-05 15:49 | disposition home or self-care (01) ==
PROVIDERS: Emergency Provider Student in an Organized Health Care Education/Training Program; PCP Family Medicine
DX: L76.22 Postprocedural hemorrhage of skin and subcutaneous tissue following other procedure (principal); Z79.02 Long term (current) use of antithrombotics/antiplatelets; I10 Essential (primary) hypertension
CPT/HCPCS: 99282

== ENCOUNTER 2021-03-05 17:30 | Emergency (ER) | payer MEDICARE, OTHER, SELFPAY ==
[2021-03-05 14:13] VITALS: BMI 18.8
[2021-03-05 17:33] VITALS: BP 169/77; PULSE 108; RESP 18; TEMP 36.9; O2SAT 99; BMI 18.8
--- NOTE | 2021-03-05 18:01 | CT_ITS ---
INDICATION: post operative bleeding s/p hysterectomy EXAMINATION: CT Abdomen And Pelvis W/ Contrast Injection TECHNIQUE: Helically acquired images were obtained of the abdomen and pelvis after IV contrast. A radiation dose optimization technique was used for this scan. IV Contrast dosage and agent: 80 cc [id number] Oral contrast: None. COMPARISON: None. FINDINGS: Visualized lung bases: Unremarkable Liver: Few scattered simple cysts. Gallbladder: Few small intraluminal stones seen. Spleen: Unremarkable Pancreas: Unremarkable Adrenal Glands: Unremarkable Kidneys: Scattered too small to characterize subcentimeter hypodensities bilaterally. GI Tract: Scattered diverticula throughout the colon without evidence of inflammation. Large amount of retained stool in the colon. Vasculature: Moderate scattered aortoiliac atherosclerotic calcifications. Lymphadenopathy: None Peritoneum: Small amount of free fluid in the pelvis. Bladder: Distended. Reproductive organs: The uterus is surgically absent. Bones/Soft tissues: There is a 3 x 2.8 cm rectus sheath hematoma on the left. There is a significant amount of edema, fluid and subcutaneous emphysema in the lower anterior abdominal wall. There is mild S type scoliosis of the thoracolumbar spine. There are moderate degenerative changes of the visualized spine. CT/Abdomen/Pelvis W IV Cont ONLY IMPRESSION: Postsurgical changes in the lower anterior abdominal wall and pelvis with a 3 cm rectus sheath hematoma on the left. Diverticulosis. Cholelithiasis. Electronically Signed: Maury Syed MD at 20:02 EDT Tel , Service support ,
--- NOTE | 2021-03-05 18:01 | ED.VIS.GEN ---
History of Present Illness Chief Complaint: Wound Check Informant: Patient Narrative: 80-year-old female status post hysterectomy postop day 4. Patient was seen earlier by myself. She complained of some bleeding from her surgical incision sites and her wounds were clean, dry. There was no active bleeding or pain. She does have some ecchymosis on her abdomen from her previous surgery. Patient complains now that she may have some vaginal bleeding. She states she cannot tell whether it is coming from her wound or her vagina. She states that she had had normal postoperative vaginal bleeding and was told that this would occur. Today it seems like it has been more. She is on Eliquis for postoperative DVT prophylaxis. She denies lightheadedness, dizziness, this of breath. She states she feels otherwise well. Past Medical History - Allergies and Home Meds Allergies/Adverse Reactions: Allergies ibuprofen Adverse Reaction (Verified 03/05/21 17:36) Nausea Opioids - Morphine Analogues Adverse Reaction (Verified 03/05/21 17:36) Other simvastatin Adverse Reaction (Verified 03/05/21 17:36) Other Primary Care Physician: Rosita Lentz MD [Primary Care Provider] - Past Medical History: - - Hypertension, osteoporosis, history of cervical cancer Surgical History: - - Radical hysterectomy/oophorectomy Lives: Spouse/ Significant Other Smoking Status: Never smoker Alcohol: None Drugs: None Review of Systems General: Denies: Chills, Fever, Sweats Eyes: Denies: Visual changes - bilaterally, Diplopia ENT: Denies: Rhinorrhea, Sore throat Cardiovascular: Denies: Chest pain, Palpitations Respiratory: Denies: Dyspnea, Cough, Dyspnea on exertion Gastrointestinal: Denies: Abdominal pain, Nausea, Vomiting, Diarrhea Genitourinary: Reports: - - Vaginal bleeding. Denies: Dysuria, Hematuria, Frequency Musculoskeletal: Denies: Back pain, Extremity Pain Skin: Reports: Wounds - Postoperative surgical scar was bleeding earlier today. There is partial dehiscence on the right side. There is no active bleeding from this currently.. Denies: Rash Neurological: Denies: Headache, Weakness, Numbness Physical Exam Vital Signs/Narrative: Vital Signs Temp Pulse Resp BP Pulse Ox 03/05/21 17:33 98.5 F 108 H 18 169/77 H 99 General: Well nourished, Well developed, No Acute Distress Head: Normocephalic, Atraumatic Eyes: Perrl, EOMI. Negative for: Pale conjunctiva ENT: Moist mucous membranes, No rhinorrhea Neck: Supple, Nontender Cardiovascular: Regular rate, Regular rhythm, No murmurs Respiratory: No distress, CTA bilaterally, Chest nontender Abdomen: Soft, Nontender, Nondistended, Normal bowel sounds : - - Small amount of blood in the vaginal introitus. There is no active bleeding. Extremities: Nontender, No edema Skin: - - Ecchymosis covering the abdomen. Abdomen is nonperitoneal. No active bleeding from surgical sites.. Negative for: Diaphoresis, Jaundice Neurological: Alert, Oriented x3, Cranial nerves II-XII grossly intact Psychological: Normal affect, Normal Mood Diagnostic/Tx/Re-eval - Medical Decision Making 80-year-old female presenting for the second time today with concern for bleeding postoperatively. Earlier she believed her wound sites were bleeding but now she has vaginal bleeding. On exam she has some old blood in the introitus. Her blood pressure is not low. She not dizzy, lightheaded, short of breath. Review of the medical record shows that her surgery was actually for cervical cancer. She did have salpingo-oophorectomy. Patient's postoperative hemoglobin was 11.1 and today it is 10.4. She is not hypotensive, lightheaded, short of breath. Earlier today I did speak to her surgeon Dr. Luis Nguyen and he did want her to follow-up in the office tomorrow. She was supposed to call at 830 to be seen tomorrow. Patient's lab work is otherwise fairly unremarkable. Patient will have CT of the abdomen pelvis and I will rediscuss her case with Dr. Nugyen. CT of the abdomen pelvis with IV contrast shows a 3 cm rectus sheath hematoma on the left. There is no active bleeding from her surgical sites. There is no active bleeding vaginally. I discussed this with Dr. Nguyen again and he states he will have the office call them in the morning and get her into follow-up tomorrow morning. This was discussed the patient and she is comfortable going home at this point. She is given precautions for return. Patient stable at this time. Impression: 1. Postop bleeding 2. Anemia ED Disposition - Plan for ED Patient: Disposition: Home or Assisted Living Instructions: ED Post Op Wound Check, Bleeding Referrals: Rosita Lentz MD [Primary Care Provider] -
[2021-03-05 18:21] LABS: Absolute Lymphocyte Count 1.65 X10^3/uL (0.83-4.51); Absolute Neutrophil Count 9.1 X10^3/uL (2.0-7.7); Basophil# 0.04 X10^3/uL; Basophil% 0.3 % (0-1); Eosinophil# 0.21 X10^3/uL; Eosinophils% 1.8 % (0-5); Hematocrit 32.2 % (37-47); Hemoglobin 10.4 g/dL (12.0-15.0); Lymphocyte # 1.65 X10^3/ul (4.0); Lymphocyte % 13.9 % (19-41); Mean Corp Hgb Conc 32.3 g/dL (32-36); Mean Corpuscular Hgb 32.4 pg (27.0-32.0); Mean Corpuscular Volume 100.3 fL (81-99); Mean Platelet Vol. 9.8 fl (6.2-12.0); Monocyte% 6.7 % (0-10); NRBC Flagged by Analyzer 0 % (0-5); Neutrophil # 9.07 X10^3/uL (2.7-7.7); Neutrophil % 76.3 % (47-70); Platelet Count 271 K/mm3 (150-450); RBC Distribution Width CV 12.3 % (11.6-14.6); RBC Distribution Width SD 44.5 fl (35.1-43.9); Red Blood Count 3.21 M/mm3 (4.2-5.4); White Blood Count 11.9 K/mm3 (4.4-11.0)
[2021-03-05 18:33] VITALS: BP 211/97; PULSE 97; RESP 16; O2SAT 100
[2021-03-05 19:04] LABS: ALB/GLOB Ratio 0.9 RATIO (0.9-2.4); AST(SGOT) 66 U/L (15-37); Alanine Aminotransfer ALT/SGPT 47 U/L (13-56); Albumin, Serum 3.2 g/dL (3.2-5.0); Alkaline Phosphatase 81 U/L (45-117); Anion Gap 6 (5-15); BUN 20 mg/dL (7-18); BUN/Creat Ratio 25.5 RATIO (10-20); Calcium,Total 9.2 mg/dL (8.5-10.1); Chloride 106 mmol/L (98-107); Creatinine, Serum 0.78 mg/dL (0.55-1.02); EST Glomerular Filtration Rate 75 mL/min (>60); Est Glom Filt Rate - Afr Amer 91 mL/min (>60); Estimated Creatinine Clearance 38.22 ml/min; Globulin 3.5 g/dL (2.2-4.2); Glucose 133 mg/dL (74-106); Protein, Total 6.7 g/dL (6.4-8.2); Sodium Level 139 mmol/L (136-145)
[2021-03-05 22:19] VITALS: BP 161/83; PULSE 91; RESP 16; O2SAT 100
== END 2021-03-05 22:54 | disposition home or self-care (01) ==
PROVIDERS: Emergency Provider Student in an Organized Health Care Education/Training Program; PCP Family Medicine
DX: D64.9 Anemia, unspecified (principal); L76.22 Postprocedural hemorrhage of skin and subcutaneous tissue following other procedure; I10 Essential (primary) hypertension; Z79.02 Long term (current) use of antithrombotics/antiplatelets; Z79.899 Other long term (current) drug therapy
CPT/HCPCS: 74177; 80053; 85025; 85610; 99282; 99284; Q9967

== ENCOUNTER → 2021-06-13 10:47 | Outpatient (CLI) | payer MEDICARE, OTHER, SELFPAY ==
[2021-05-10 14:23] VITALS: BMI 18.8
[2021-06-13 12:09] LABS: Absolute Lymphocyte Count 0.57 X10^3/uL (0.83-4.51); Absolute Neutrophil Count 4.5 X10^3/uL (2.0-7.7); Basophil# 0.02 X10^3/uL; Basophil% 0.3 % (0-1); Eosinophil# 0.14 X10^3/uL; Eosinophils% 2.4 % (0-5); Hematocrit 41.4 % (37-47); Hemoglobin 13.1 g/dL (12.0-15.0); Lymphocyte # 0.57 X10^3/ul (0.83-4.51); Lymphocyte % 9.8 % (19-41); Mean Corp Hgb Conc 31.6 g/dL (32-36); Mean Corpuscular Hgb 31.3 pg (27.0-32.0); Mean Corpuscular Volume 98.8 fL (81-99); Mean Platelet Vol. 9.7 fl (6.2-12.0); Monocyte# 0.53 X10^3/uL; Monocyte% 9.1 % (0-10); NRBC Flagged by Analyzer 0 % (0-5); Neutrophil # 4.53 X10^3/uL (2.7-7.7); Neutrophil % 77.9 % (47-70); POSITIVE DIFFERENTIAL YES; Platelet Count 210 K/mm3 (150-450); RBC Distribution Width CV 12.5 % (11.6-14.6); RBC Distribution Width SD 45.1 fl (35.1-43.9); Red Blood Count 4.19 M/mm3 (4.2-5.4); White Blood Count 5.8 K/mm3 (4.4-11.0)
[2021-06-13 12:16] LABS: Differential Indicated SCAN CRITERIA MET
[2021-06-13 12:44] LABS: AST(SGOT) 32 U/L (15-37); Alanine Aminotransfer ALT/SGPT 34 U/L (13-56); Albumin, Serum 3.4 g/dL (3.2-5.0); Alkaline Phosphatase 70 U/L (45-117); Anion Gap 3 (5-15); BUN 27 mg/dL (7-18); BUN/Creat Ratio 34.9 RATIO (10-20); Calcium,Total 9.5 mg/dL (8.5-10.1); Chloride 107 mmol/L (98-107); Creatinine, Serum 0.77 mg/dL (0.55-1.02); EST Glomerular Filtration Rate 76 mL/min (>60); Est Glom Filt Rate - Afr Amer 92 mL/min (>60); Globulin 3.4 g/dL (2.2-4.2); Glucose 95 mg/dL (74-106); Protein, Total 6.8 g/dL (6.4-8.2); Sodium Level 141 mmol/L (136-145)
== END ==
PROVIDERS: PCP Family Medicine; Referring Provider Internal Medicine Rheumatology; Visit Provider Internal Medicine Rheumatology
DX: H20.9 Unspecified iridocyclitis (principal); H35.063 Retinal vasculitis, bilateral; M18.0 Bilateral primary osteoarthritis of first carpometacarpal joints; M17.0 Bilateral primary osteoarthritis of knee; M47.892 Other spondylosis, cervical region; I10 Essential (primary) hypertension; H40.9 Unspecified glaucoma; Z79.899 Other long term (current) drug therapy
CPT/HCPCS: 36415; 80053; 85025

== ENCOUNTER → 2021-09-11 09:57 | Outpatient (CLI) | payer MEDICARE, OTHER, SELFPAY ==
[2021-09-11 12:08] LABS: Absolute Lymphocyte Count 0.52 X10^3/uL (0.83-4.51); Absolute Neutrophil Count 4.4 X10^3/uL (2.0-7.7); Basophil# 0.03 X10^3/uL; Basophil% 0.5 % (0-1); Eosinophil# 0.13 X10^3/uL; Eosinophils% 2.3 % (0-5); Hematocrit 41.8 % (37-47); Hemoglobin 13.3 g/dL (12.0-15.0); Lymphocyte # 0.52 X10^3/ul (0.83-4.51); Lymphocyte % 9.3 % (19-41); Mean Corp Hgb Conc 31.8 g/dL (32-36); Mean Corpuscular Hgb 32.3 pg (27.0-32.0); Mean Corpuscular Volume 101.5 fL (81-99); Mean Platelet Vol. 9.7 fl (6.2-12.0); Monocyte# 0.52 X10^3/uL; Monocyte% 9.3 % (0-10); NRBC Flagged by Analyzer 0 % (0-5); Neutrophil # 4.38 X10^3/uL (2.7-7.7); Neutrophil % 78.2 % (47-70); POSITIVE DIFFERENTIAL YES; Platelet Count 222 K/mm3 (150-450); RBC Distribution Width CV 12.4 % (11.6-14.6); Red Blood Count 4.12 M/mm3 (4.2-5.4); White Blood Count 5.6 K/mm3 (4.4-11.0)
[2021-09-11 12:11] LABS: Differential Indicated SCAN CRITERIA MET
[2021-09-11 12:27] LABS: ALB/GLOB Ratio 0.9 RATIO (0.9-2.4); AST(SGOT) 26 U/L (15-37); Alanine Aminotransfer ALT/SGPT 32 U/L (13-56); Albumin, Serum 3.3 g/dL (3.2-5.0); Alkaline Phosphatase 74 U/L (45-117); Anion Gap 6 (5-15); BUN 24 mg/dL (7-18); BUN/Creat Ratio 33.6 RATIO (10-20); Calcium,Total 9.1 mg/dL (8.5-10.1); Chloride 108 mmol/L (98-107); Creatinine, Serum 0.71 mg/dL (0.55-1.02); EST Glomerular Filtration Rate 84 mL/min (>60); Est Glom Filt Rate - Afr Amer 101 mL/min (>60); Globulin 3.5 g/dL (2.2-4.2); Glucose 88 mg/dL (74-106); Potassium 3.9 mmol/L (3.5-5.1); Protein, Total 6.8 g/dL (6.4-8.2); Sodium Level 142 mmol/L (136-145)
== END ==
PROVIDERS: PCP Family Medicine; Referring Provider Internal Medicine Rheumatology; Visit Provider Internal Medicine Rheumatology
DX: H20.9 Unspecified iridocyclitis (principal); H35.063 Retinal vasculitis, bilateral; M18.0 Bilateral primary osteoarthritis of first carpometacarpal joints; M17.0 Bilateral primary osteoarthritis of knee; M47.892 Other spondylosis, cervical region; Z79.899 Other long term (current) drug therapy
CPT/HCPCS: 36415; 80053; 85025

== ENCOUNTER 2021-12-19 10:17 | Outpatient (CLI) | payer MEDICARE, OTHER, SELFPAY ==
[2021-12-19 11:15] LABS: Absolute Lymphocyte Count 0.77 X10^3/uL (0.83-4.51); Absolute Neutrophil Count 4.3 X10^3/uL (2.0-7.7); Basophil# 0.04 X10^3/uL; Basophil% 0.7 % (0-1); Eosinophil# 0.15 X10^3/uL; Eosinophils% 2.5 % (0-5); Hematocrit 39.2 % (37-47); Hemoglobin 12.9 g/dL (12.0-15.0); Lymphocyte # 0.77 X10^3/ul (0.83-4.51); Mean Corp Hgb Conc 32.9 g/dL (32-36); Mean Corpuscular Volume 100.3 fL (81-99); Mean Platelet Vol. 9.6 fl (6.2-12.0); Monocyte# 0.58 X10^3/uL; Monocyte% 9.8 % (0-10); NRBC Flagged by Analyzer 0 % (0-5); Neutrophil # 4.34 X10^3/uL (2.7-7.7); Neutrophil % 73.5 % (47-70); Platelet Count 193 K/mm3 (150-450); RBC Distribution Width SD 47.2 fl (35.1-43.9); Red Blood Count 3.91 M/mm3 (4.2-5.4); White Blood Count 5.9 K/mm3 (4.4-11.0)
[2021-12-19 11:33] LABS: ALB/GLOB Ratio 1.1 RATIO (0.9-2.4); AST(SGOT) 29 U/L (15-37); Alanine Aminotransfer ALT/SGPT 29 U/L (13-56); Albumin, Serum 3.5 g/dL (3.2-5.0); Alkaline Phosphatase 72 U/L (45-117); Anion Gap 8 (5-15); BUN 23 mg/dL (7-18); BUN/Creat Ratio 29.4 RATIO (10-20); Calcium,Total 9.6 mg/dL (8.5-10.1); Chloride 108 mmol/L (98-107); Creatinine, Serum 0.78 mg/dL (0.55-1.02); EST Glomerular Filtration Rate 75 mL/min (>60); Est Glom Filt Rate - Afr Amer 91 mL/min (>60); Globulin 3.1 g/dL (2.2-4.2); Glucose 67 mg/dL (74-106); Potassium 3.5 mmol/L (3.5-5.1); Protein, Total 6.6 g/dL (6.4-8.2); Sodium Level 143 mmol/L (136-145)
== END 2021-12-19 23:59 | disposition short-term general hospital (02) ==
LOC: MTLAB 10:19
PROVIDERS: PCP Family Medicine; Referring Provider Internal Medicine Rheumatology; Visit Provider Internal Medicine Rheumatology
DX: H20.9 Unspecified iridocyclitis (principal); C53.9 Malignant neoplasm of cervix uteri, unspecified; Z79.899 Other long term (current) drug therapy; H35.063 Retinal vasculitis, bilateral; I10 Essential (primary) hypertension; M17.0 Bilateral primary osteoarthritis of knee; M18.0 Bilateral primary osteoarthritis of first carpometacarpal joints; M47.892 Other spondylosis, cervical region; H40.9 Unspecified glaucoma
CPT/HCPCS: 36415; 80053; 85025

== ENCOUNTER 2022-03-12 10:18 | Outpatient (CLI) | payer MEDICARE, OTHER, SELFPAY ==
[2022-03-12 12:17] LABS: Absolute Neutrophil Count 4.2 X10^3/uL (2.0-7.7); Basophil# 0.03 X10^3/uL; Basophil% 0.6 % (0-1); Eosinophil# 0.12 X10^3/uL; Eosinophils% 2.3 % (0-5); Hemoglobin 12.4 g/dL (12.0-15.0); Lymphocyte % 7.8 % (19-41); Mean Corp Hgb Conc 31.8 g/dL (32-36); Mean Corpuscular Hgb 32.8 pg (27.0-32.0); Mean Corpuscular Volume 103.2 fL (81-99); Monocyte# 0.44 X10^3/uL; Monocyte% 8.5 % (0-10); NRBC Flagged by Analyzer 0 % (0-5); Neutrophil # 4.15 X10^3/uL (2.7-7.7); Neutrophil % 80.6 % (47-70); POSITIVE DIFFERENTIAL YES; Platelet Count 178 K/mm3 (150-450); RBC Distribution Width CV 12.6 % (11.6-14.6); RBC Distribution Width SD 46.5 fl (35.1-43.9); Red Blood Count 3.78 M/mm3 (4.2-5.4); White Blood Count 5.2 K/mm3 (4.4-11.0)
[2022-03-12 12:22] LABS: Differential Indicated SCAN CRITERIA MET
[2022-03-12 12:49] LABS: ALB/GLOB Ratio 1.1 RATIO (0.9-2.4); AST(SGOT) 36 U/L (15-37); Alanine Aminotransfer ALT/SGPT 38 U/L (13-56); Albumin, Serum 3.3 g/dL (3.2-5.0); Alkaline Phosphatase 70 U/L (45-117); Anion Gap 1 (5-15); BUN 18 mg/dL (7-18); BUN/Creat Ratio 24.5 RATIO (10-20); Calcium,Total 8.8 mg/dL (8.5-10.1); Chloride 108 mmol/L (98-107); Creatinine, Serum 0.74 mg/dL (0.55-1.02); EST Glomerular Filtration Rate 81 mL/min (>60); Est Glom Filt Rate - Afr Amer 98 mL/min (>60); Glucose 118 mg/dL (74-106); Potassium 4.2 mmol/L (3.5-5.1); Protein, Total 6.3 g/dL (6.4-8.2); Sodium Level 140 mmol/L (136-145)
[2022-03-12 13:37] LABS: Macrocytosis 2+
== END 2022-03-12 23:59 | disposition home or self-care (01) ==
LOC: MTLAB 10:19
PROVIDERS: PCP Family Medicine; Referring Provider Internal Medicine Rheumatology; Visit Provider Internal Medicine Rheumatology
DX: H20.9 Unspecified iridocyclitis (principal); C53.9 Malignant neoplasm of cervix uteri, unspecified; H35.063 Retinal vasculitis, bilateral; M18.0 Bilateral primary osteoarthritis of first carpometacarpal joints; M17.0 Bilateral primary osteoarthritis of knee; M47.892 Other spondylosis, cervical region; I10 Essential (primary) hypertension; H40.9 Unspecified glaucoma; Z79.899 Other long term (current) drug therapy
CPT/HCPCS: 36415; 80053; 85025

== ENCOUNTER → 2022-06-05 | Outpatient (CLI) | payer MEDICARE, OTHER, SELFPAY ==
[2022-06-05 10:10] LABS: Absolute Lymphocyte Count 0.42 X10^3/uL (0.83-4.51); Absolute Neutrophil Count 6.1 X10^3/uL (2.0-7.7); Basophil# 0.02 X10^3/uL; Basophil% 0.3 % (0-1); Eosinophil# 0.15 X10^3/uL; Hematocrit 40.5 % (37-47); Hemoglobin 13.1 g/dL (12.0-15.0); Lymphocyte # 0.42 X10^3/ul (0.83-4.51); Lymphocyte % 5.7 % (19-41); Mean Corp Hgb Conc 32.3 g/dL (32-36); Mean Corpuscular Hgb 32.4 pg (27.0-32.0); Mean Corpuscular Volume 100.2 fL (81-99); Mean Platelet Vol. 9.9 fl (6.2-12.0); Monocyte# 0.63 X10^3/uL; Monocyte% 8.5 % (0-10); NRBC Flagged by Analyzer 0 % (0-5); Neutrophil # 6.13 X10^3/uL (2.7-7.7); Neutrophil % 83.1 % (47-70); POSITIVE DIFFERENTIAL YES; Platelet Count 196 K/mm3 (150-450); RBC Distribution Width CV 12.6 % (11.6-14.6); RBC Distribution Width SD 45.9 fl (35.1-43.9); Red Blood Count 4.04 M/mm3 (4.2-5.4); White Blood Count 7.4 K/mm3 (4.4-11.0)
[2022-06-05 10:13] LABS: Differential Indicated SCAN CRITERIA MET
[2022-06-05 10:33] LABS: Differential Comment SCANNED
[2022-06-05 10:37] LABS: AST(SGOT) 28 U/L (15-37); Alanine Aminotransfer ALT/SGPT 28 U/L (13-56); Albumin, Serum 3.2 g/dL (3.2-5.0); Alkaline Phosphatase 69 U/L (45-117); Anion Gap 3 (5-15); BUN 20 mg/dL (7-18); BUN/Creat Ratio 27.9 RATIO (10-20); Calcium,Total 9.1 mg/dL (8.5-10.1); Chloride 107 mmol/L (98-107); Creatinine, Serum 0.72 mg/dL (0.55-1.02); EST Glomerular Filtration Rate 83 mL/min (>60); Est Glom Filt Rate - Afr Amer 101 mL/min (>60); Globulin 3.1 g/dL (2.2-4.2); Glucose 76 mg/dL (74-106); Potassium 4.1 mmol/L (3.5-5.1); Protein, Total 6.3 g/dL (6.4-8.2); Sodium Level 141 mmol/L (136-145)
== END | disposition home or self-care (01) ==
PROVIDERS: PCP Family Medicine; Referring Provider Internal Medicine Rheumatology; Visit Provider Internal Medicine Rheumatology
DX: H20.9 Unspecified iridocyclitis (principal); C53.9 Malignant neoplasm of cervix uteri, unspecified; H35.063 Retinal vasculitis, bilateral; M18.0 Bilateral primary osteoarthritis of first carpometacarpal joints; M17.0 Bilateral primary osteoarthritis of knee; M47.892 Other spondylosis, cervical region; I10 Essential (primary) hypertension; H40.9 Unspecified glaucoma; Z79.899 Other long term (current) drug therapy
CPT/HCPCS: 36415; 80053; 85025

== ENCOUNTER 2022-06-11 18:03 | Emergency (ER) | payer MEDICARE, OTHER, SELFPAY ==
[2022-06-11 18:04] VITALS: BP 181/74; PULSE 93; RESP 16; TEMP 36.6; O2SAT 100; BMI 19.3
--- NOTE | 2022-06-11 19:26 | CT_ITS ---
STUDY: CT CERVICAL SPINE WITHOUT CONTRAST REASON FOR EXAM: Female, 81 years old. Trauma RADIATION DOSAGE (If Supplied By Facility): CTDIvol = ( 11.84 ) mGy, DLP = ( 225.45 ) mGycm TECHNIQUE: High resolution transaxial imaging was performed without contrast material. Sagittal and coronal images were reconstructed. Individualized dose optimization techniques were used for this CT. COMPARISON: None FINDINGS: Normal craniovertebral junction. Normal anterior atlantoaxial articulation. There is acute subacute fracture of the base of the odontoid process with displacement of 0.3 cm. Normal cervical lordosis. There is demineralization of the vertebral bodies and posterior osseous elements. C2-3: Normal endplates. Normal disc height and morphology. Mild facet spurring. Normal central canal and intervertebral neuroforamina. C3-4: Mild spurring to the left. Facet spurring on the left more than the right. No canal stenosis. Left foraminal narrowing C4-5: Mild spurring. Facet spurring. Normal central canal and intervertebral neuroforamina. C5-6: Mild spurring. Facet spurring on the left. Normal central canal and intervertebral neuroforamina. C6-7: Mild spurring. Mild facet spurring.. Normal central canal and intervertebral neuroforamina. C7-T1: Normal endplates. Normal disc height and morphology. Normal central canal and intervertebral neuroforamina. Normal visualized soft tissue structures. CT/Spine Cervical without Contras IMPRESSION: Multilevel degenerative changes, as described above. Type II odontoid fracture. N.B. : The above Results were Read Back by Ovidio Cage MD to Dr. Raphael DO, and understanding confirmed on 06/11/2022 21:35:18 (ET). Electronically Signed: Ovidio Cage MD at 21:36 EDT Reading Location ID and State: [address] [place] [address] , Service support ,
--- NOTE | 2022-06-11 19:26 | CT_ITS ---
STUDY: CT BRAIN WITHOUT CONTRAST REASON FOR EXAM: Female, 81 years old. Trauma RADIATION DOSAGE (If Supplied By Facility): CTDIvol = ( 44.99 ) mGy, DLP = ( 846.73 ) mGycm TECHNIQUE: Transaxial CT imaging of the brain was performed without administration of intravenous contrast material. Individualized dose optimization techniques were used for this CT. COMPARISON: No relevant priors. FINDINGS: There is swelling of the nose. There is angulation of the nasal bone consistent with fracture. Normal calvarium. There is mild cerebral atrophy with widening of the extra-axial spaces and ventricular dilatation. Normal white matter tracts of the cerebral hemispheres. Normal basal ganglia and thalami. Normal brainstem. Normal cerebellum. There is no intracranial hemorrhage. There are no findings of an acute ischemic infarction. Normal visualized paranasal sinuses. CT/Brain/Head without Contrast IMPRESSION: Chronic involutional changes of the brain. Nasal fracture. Electronically Signed: Ovidio Cage MD at 21:20 EDT ,
--- NOTE | 2022-06-11 19:26 | CT_ITS ---
STUDY: CT FACIAL BONES WITHOUT CONTRAST REASON FOR EXAM: Female, 81 years old. Trauma RADIATION DOSAGE (If Supplied By Facility): CTDIvol = ( 29.38 ) mGy, DLP = ( 606.22 ) mGycm TECHNIQUE: The patient was scanned in a multi detector CT scanner. Sagittal and coronal images were reconstructed. Individualized dose optimization techniques were used for this CT. COMPARISON: None. FINDINGS: There is swelling of the nose. Normal orbital galindo and orbital contents. There is angulation with fracture of the nose . Normal subglottic arches. Normal mandible. Normal visualized paranasal sinuses. CT/Sinus/Facial Bone IMPRESSION: Nasal fracture. Electronically Signed: Ovidio Cage MD at 21:23 EDT Reading Location ID and State: [facility] / [place] , Service support ,
--- NOTE | 2022-06-11 19:44 | RAD_ITS ---
STUDY: X-RAY - LEFT HAND REASON FOR EXAM: Female, 81 years old. Pain TECHNIQUE: 3 view(s) of the hand. COMPARISON: None. FINDINGS: Normal radiocarpal articulation. Normal distal radioulnar joint. There is diffuse demineralization of the carpal bones. Normal carpal articulations There is degenerative arthrosis of the carpometacarpal (CMC) articulation of the thumb. Normal second through fifth carpometacarpal joints. Normal metacarpi. There is degenerative arthrosis of the metacarpophalangeal (MCP) joint of the thumb. Normal interphalangeal joint of the thumb. Normal proximal and distal phalanges of the thumb. Normal metacarpophalangeal joints of the second through fifth fingers. There is mild articular joint space narrowing of the proximal and distal interphalangeal joints of the second through fifth fingers, but without erosive changes or periarticular soft tissue swelling. Normal phalanges of the second through fifth fingers. The soft tissue structures are unremarkable. RAD/Hand Min 3 Views IMPRESSION: Degenerative joint disease of the hand and wrist, as described above. Electronically Signed: Ovidio Cage MD at 21:09 EDT ,
[2022-06-11] MEDS: Oxymetazoline 0.05% 1 SPRAY SPRAY.BTL NASAL (22:30)
--- NOTE | 2022-06-11 22:30 | EDS_ITS ---
HPI HPI - Fall History of Present Illness Chief Complaint: Fall Narrative Narrative: 81-year-old female presenting with nasal bone contusion, neck pain after mechanical fall forward. She was walking and had mechanical fall. This was a ground height. She fell striking her nose and injured her left finger. She does have some abrasions over the bilateral fingers. She states only her left ring finger hurts. She has epistaxis coming from the right nare of this is mild. She does have pain in the neck which is new after she fell. She denies paresthesias. PFSH PFS Medical History Broken arm Cervical cancer Glaucoma Hypertension Migraines Pap smear abnormality of cervix Pneumonia Precancerous skin lesion sensitive to anesthesia Uveitis Vasculitis Home Medications folic acid 1 mg tablet 1 mg PO DAILY@0800 10/18/16 [History Last Taken 10/18/16] methotrexate sodium 2.5 mg tablet 15 mg PO QWEEK 10/18/16 [History Last Taken 10/16/16] metoprolol succinate 50 mg tablet,extended release 24 hr 50 mg PO DAILY 10/18/16 [History Last Taken 10/18/16] multivitamin (Multiple Vitamins) 1 ea PO DAILY 06/01/18 [History Last Taken Unknown] acetaminophen 500 mg tablet 1,000 mg PO Q6H PRN Pain 1-10 Or Fever 03/20/21 [History Last Taken Unknown] amlodipine 2.5 mg tablet 2.5 mg PO DAILY 03/20/21 [History Last Taken Unknown] brimonidine 0.2 % eye drops 1 drp RIGHT EYE BID 03/20/21 [History Last Taken Unknown] latanoprost 0.005 % eye drops 1 drp RIGHT EYE QHS 03/20/21 [History Last Taken Unknown] loperamide 2 mg capsule 2 mg PO DAILY 06/11/22 [History Last Taken Unknown] Allergy/AdvReac Type Severity Reaction Status Date / Time codeine AdvReac Mild Severe Verified 03/05/22 11:13 headaches ibuprofen AdvReac Nausea Verified 03/05/22 11:13 Opioids - Morphine Analogues AdvReac Severe Verified 03/05/22 11:13 headaches simvastatin AdvReac Muscle Verified 03/05/22 11:13 weakness Family History Father CHF (congestive heart failure) Immune disorder Mother CHF (congestive heart failure) CLL (chronic lymphocytic leukemia) Surgical History History of dilation and curettage History of left knee replacement S/P hysterectomy Social History Smoking Status: Never smoker ROS ROS ED Constitutional Constitutional ED: Denies chills, fever(s) or subjective Eyes Eyes: Denies change in vision ENT ENT ED: Reports other Details: Epistaxis ; Denies sore throat Cardiovascular Cardiovascular: Denies chest pain or palpitations Respiratory/Chest Respiratory/Chest: Denies cough or dyspnea Gastrointestinal Gastrointestinal: Denies abdominal pain, constipation or diarrhea Genitourinary Genitourinary ED: Denies dysuria Musculoskeletal Musculoskeletal: Reports neck pain; Denies back pain Integumentary Reports other Details: Multiple abrasions to the bilateral hands. Swelling and tenderness over the left fourth PIP on the left hand. Neurologic Neurologic: Denies headache(s) or paresthesias EXAM Physical Exam Const Vital Signs: 06/11/22 18:04 06/11/22 19:28 Temperature 97.9 F Temperature Source Temporal Pulse Rate 93 Respiratory Rate 16 Respiratory Effort Normal Respiratory Depth Normal Respiratory Pattern Normal Blood Pressure 181/74 H Blood Pressure Mean 109 Pulse Ox 100 Oxygen Delivery Method Room Air Positive well nourished General Appearance ED: NAD HEENT Reports normocephalic HEENT Narrative: Swelling and bruising over the nasal bone midline. There is a slight abrasion here. Left nare no epistaxis. Right ear has a mild epistaxis. No nasal septal hematoma. TMs are normal without hemotympanum. Eyes PERRL and EOMs intact bilaterally General Eye ED: Negative for pale conjunctiva or scleral icterus Resp normal respiratory effort Cardio regular rate and regular rhythm Neuro oriented x3, CN's II-XII intact bilaterally, no focal motor deficits and no sensory deficits noted Sensorium / Orientation: alert Motor Exam: strength 5/5 throughout Psych mental status grossly normal Skin Skin Narrative: Multiple abrasions over the bilateral hand. Tenderness and swelling over the left fifth MCP on the left hand. MDM MDM MDM Narrative Medical decision making narrative: Patient presenting after mechanical fall and striking her head. No LOC. She not on anticoagulation. Patient states that her neck is also hurting her. I obtained an x-ray of the left hand which is negative for acute fracture on my interpretation. CT of the brain, facial bones, negative for acute intracranial findings but does identify a nasal bone fracture. CT of the cervical spine s hows a type II odontoid fracture. Patient was placed in a c-collar. I spoke with Dr. David at [facility] in the emergency room. He accepted transfer. Patient medically stable. She declined any analgesia. Prior to her transfer I did use some Afrin and a cotton ball to try to alleviate the small bleed in the right nare. I did not want to delay transport. I had her blow her nose fully and there were no clots. Afrin and cottonball were placed. Patient transported in stable condition. Impression: 1. Mechanical fall 2. Nasal bone fracture 3. Type II odontoid fracture 4. Bilateral hand contusions Radiography Diagnostic Testing: Clinical Impression(s) from Imaging Studies Brain CT 06/11/22 19:26 IMPRESSION: Chronic involutional changes of the brain. Nasal fracture. Electronically Signed: Ovidio Cage MD at 21:20 EDT Reading Location ID and State: [facility] / MD , Service support , Cervical Spine CT 06/11/22 19:26 IMPRESSION: Multilevel degenerative changes, as described above. Type II odontoid fracture. N.B. : The above Results were Read Back by Ovidio Cage MD to Dr. Raphael DO, and understanding confirmed on 06/11/2022 21:35:18 (ET). Electronically Signed: Ovidio Cage MD at 21:36 EDT , ADDENDUM: 06/11/222142 IMPRESSION: Multilevel degenerative changes, as described above. Type II odontoid fracture. N.B. : The above Results were Read Back by Ovidio Cage MD to Dr. Raphael DO, and understanding confirmed on 06/11/2022 21:35:18 (ET). Electronically Signed: Ovidio Cage MD at 21:36 EDT Reading Location ID and State: [facility] / MD , Service support , Facial/Sinus 06/11/22 19:26 IMPRESSION: Nasal fracture. Electronically Signed: Ovidio Cage MD at 21:23 EDT Reading Location ID and State: [facility] / MD , Service support , Hand X-Ray 06/11/22 19:44 IMPRESSION: Degenerative joint disease of the hand and wrist, as described above. Electronically Signed: Ovidio Cage MD at 21:09 EDT Reading Location ID and State: [facility] / [place] , Service support , Discharge Plan Triage Chief Complaint: Fall ED Provider: Beto Lim Dx/Rx/DC Orders Prescriptions: No Action metoprolol succinate 50 MG tablet 50 mg PO DAILY methotrexate sodium 2.5 MG tablet 15 mg PO QWEEK Rx Instructions: on Tuesdays folic acid 1 MG tablet 1 mg PO DAILY@0800 multivitamin [Multiple Vitamins] 1 EACH tablet 1 ea PO DAILY latanoprost 1 DRP bottle 1 drp RIGHT EYE QHS amlodipine 2.5 MG tablet 2.5 mg PO DAILY acetaminophen 500 MG tablet 1,000 mg PO Q6H PRN (Reason: Pain 1-10 Or Fever) brimonidine 1 DRP bottle 1 drp RIGHT EYE BID loperamide [Imodium] 2 mg Capsule 2 mg PO DAILY Rx Instructions: administer after each loose stool until symptoms controlled; do not exceed 8 mg per 24 hrs Primary Care Provider: Rosita Lentz Referrals: Rosita Lentz MD [Primary Care Provider] -
== END 2022-06-11 22:30 | disposition short-term general hospital (02) ==
LOC: ED 19:15
PROVIDERS: Emergency Provider Student in an Organized Health Care Education/Training Program; PCP Family Medicine; Visit Provider Student in an Organized Health Care Education/Training Program
DX: S02.2XXA Fracture of nasal bones, initial encounter for closed fracture (principal); S60.222A Contusion of left hand, initial encounter; S60.221A Contusion of right hand, initial encounter; I10 Essential (primary) hypertension; Z79.899 Other long term (current) drug therapy; W19.XXXA Unspecified fall, initial encounter
CPT/HCPCS: 70450; 70486; 72125; 73130; 99281; 99285

== ENCOUNTER → 2022-08-28 | Outpatient (CLI) | payer MEDICARE, OTHER, SELFPAY ==
[2022-08-28 12:15] LABS: Absolute Lymphocyte Count 0.62 X10^3/uL (0.83-4.51); Absolute Neutrophil Count 4.2 X10^3/uL (2.0-7.7); Basophil# 0.04 X10^3/uL; Basophil% 0.7 % (0-1); Eosinophil# 0.13 X10^3/uL; Eosinophils% 2.3 % (0-5); Hematocrit 38.5 % (37-47); Hemoglobin 12.2 g/dL (12.0-15.0); Lymphocyte # 0.62 X10^3/ul (0.83-4.51); Lymphocyte % 10.9 % (19-41); Mean Corp Hgb Conc 31.7 g/dL (32-36); Mean Corpuscular Volume 104.1 fL (81-99); Mean Platelet Vol. 9.6 fl (6.2-12.0); Monocyte# 0.72 X10^3/uL; Monocyte% 12.6 % (0-10); NRBC Flagged by Analyzer 0 % (0-5); Neutrophil # 4.17 X10^3/uL (2.7-7.7); Neutrophil % 73.1 % (47-70); Platelet Count 210 K/mm3 (150-450); RBC Distribution Width CV 13.2 % (11.6-14.6); RBC Distribution Width SD 50.4 fl (35.1-43.9); White Blood Count 5.7 K/mm3 (4.4-11.0)
[2022-08-28 12:52] LABS: AST(SGOT) 25 U/L (15-37); Alanine Aminotransfer ALT/SGPT 29 U/L (13-56); Albumin, Serum 3.3 g/dL (3.2-5.0); Alkaline Phosphatase 76 U/L (45-117); Anion Gap 4 (5-15); BUN 16 mg/dL (7-18); BUN/Creat Ratio 26.3 RATIO (10-20); Calcium,Total 9.3 mg/dL (8.5-10.1); Chloride 110 mmol/L (98-107); Creatinine, Serum 0.61 mg/dL (0.55-1.02); EST Glomerular Filtration Rate 100 mL/min (>60); Est Glom Filt Rate - Afr Amer 121 mL/min (>60); Globulin 3.4 g/dL (2.2-4.2); Glucose 76 mg/dL (74-106); Potassium 4.8 mmol/L (3.5-5.1); Protein, Total 6.7 g/dL (6.4-8.2); Sodium Level 141 mmol/L (136-145)
== END | disposition home or self-care (01) ==
LOC: MTLAB 11:06
PROVIDERS: PCP Family Medicine; Referring Provider Internal Medicine Rheumatology; Visit Provider Internal Medicine Rheumatology
DX: H20.9 Unspecified iridocyclitis (principal); C53.9 Malignant neoplasm of cervix uteri, unspecified; H35.063 Retinal vasculitis, bilateral; M18.0 Bilateral primary osteoarthritis of first carpometacarpal joints; M17.0 Bilateral primary osteoarthritis of knee; M47.892 Other spondylosis, cervical region; I10 Essential (primary) hypertension; H40.9 Unspecified glaucoma; Z79.899 Other long term (current) drug therapy
CPT/HCPCS: 36415; 80053; 85025

== ENCOUNTER → 2022-11-05 | Outpatient (CLI) | payer MEDICARE, OTHER, SELFPAY ==
[2022-11-05 12:33] LABS: Absolute Lymphocyte Count 0.45 X10^3/uL (0.83-4.51); Absolute Neutrophil Count 4.1 X10^3/uL (2.0-7.7); Basophil# 0.03 X10^3/uL; Basophil% 0.6 % (0-1); Eosinophil# 0.16 X10^3/uL; Hemoglobin 13.6 g/dL (12.0-15.0); Lymphocyte # 0.45 X10^3/ul (0.83-4.51); Lymphocyte % 8.6 % (19-41); Mean Corp Hgb Conc 32.4 g/dL (32-36); Mean Corpuscular Hgb 32.5 pg (27.0-32.0); Mean Corpuscular Volume 100.2 fL (81-99); Mean Platelet Vol. 9.8 fl (6.2-12.0); Monocyte# 0.53 X10^3/uL; Monocyte% 10.1 % (0-10); NRBC Flagged by Analyzer 0 % (0-5); Neutrophil # 4.07 X10^3/uL (2.7-7.7); Neutrophil % 77.5 % (47-70); POSITIVE DIFFERENTIAL YES; Platelet Count 240 K/mm3 (150-450); RBC Distribution Width CV 12.2 % (11.6-14.6); RBC Distribution Width SD 44.1 fl (35.1-43.9); Red Blood Count 4.19 M/mm3 (4.2-5.4); White Blood Count 5.3 K/mm3 (4.4-11.0)
[2022-11-05 12:35] LABS: Differential Indicated SCAN CRITERIA MET
[2022-11-05 12:53] LABS: ALB/GLOB Ratio 1.2 RATIO (0.9-2.4); AST(SGOT) 29 U/L (15-37); Alanine Aminotransfer ALT/SGPT 28 U/L (13-56); Albumin, Serum 3.6 g/dL (3.2-5.0); Alkaline Phosphatase 100 U/L (45-117); Anion Gap 4 (5-15); BUN 18 mg/dL (7-18); BUN/Creat Ratio 23.5 RATIO (10-20); Calcium,Total 9.1 mg/dL (8.5-10.1); Chloride 110 mmol/L (98-107); Creatinine, Serum 0.76 mg/dL (0.55-1.02); EST Glomerular Filtration Rate 77 mL/min (>60); Est Glom Filt Rate - Afr Amer 93 mL/min (>60); Glucose 96 mg/dL (74-106); Potassium 3.9 mmol/L (3.5-5.1); Protein, Total 6.6 g/dL (6.4-8.2); Sodium Level 142 mmol/L (136-145)
== END | disposition home or self-care (01) ==
LOC: MTLAB 10:14
PROVIDERS: PCP Family Medicine; Referring Provider Internal Medicine Rheumatology; Visit Provider Internal Medicine Rheumatology
DX: H20.9 Unspecified iridocyclitis (principal); C53.9 Malignant neoplasm of cervix uteri, unspecified; H35.063 Retinal vasculitis, bilateral; M18.0 Bilateral primary osteoarthritis of first carpometacarpal joints; M17.0 Bilateral primary osteoarthritis of knee; M47.892 Other spondylosis, cervical region; H40.9 Unspecified glaucoma; Z79.899 Other long term (current) drug therapy
CPT/HCPCS: 36415; 80053; 85025

== ENCOUNTER → 2023-01-02 | Outpatient (CLI) | payer MEDICARE, OTHER, SELFPAY ==
--- NOTE | 2023-01-02 08:54 | BD_ITS ---
STUDY: DUAL ENERGY X-RAY ABSORPTIOMETRY / DXA REASON FOR EXAM: Female, 82 years old. 627.8Menopausal postmenopausalBONE DENSITY REASON FOR EXAM TECHNIQUE: Bone Mineral Density (BMD) measurements of lumbar spine and bilateral hips were obtained. COMPARISON: None. FINDINGS: Lumbar Spine (L1-L4): g/cm2 (1.057) / T-score (0.1) / Z-score (2.8) Findings are suggestive of normal bone density with a low fracture risk. Left Femur Total: g/cm2 (0.761) / T-score (-1.5) / Z-score (0.6) Left Femoral Neck: g/cm2 (0.703) / T-score (-1.3) / Z-score (1.1) Right Femur Total: g/cm2 (0.710) / T-score (-1.9) / Z-score (0.2) Right Femoral Neck: g/cm2 (0.698) / T-score (-1.4) / Z-score (1.0) BD/Dexa Bone Density Study IMPRESSION: The patient is considered osteopenic as outlined below according to World Yoav Organization (WHO) criteria with a moderate fracture risk. Reference Information: The T-score is the number of standard deviations above or below the standard which is normal for young adults at their peak bone mineral density. The World Health Organization (WHO) interprets the T-scores as follows: Above -1 Normal bone density Between -1 and -2.5 Osteopenia Equal to / or below -2.5 Osteoporosis As a practical clinical guideline, osteopenia may be graded as follows: Mild -1 through -1.5 Moderate -1.6 through -2.0 Severe -2.1 through -2.4 The Z-score is the number of standard deviations above or below age-matched controls. A Z-score of less than -1.5 would be considered abnormal. References: 1. NIH Osteoporosis and Related Bone Diseases www osteo.org 2. International Society for Clinical Densitometry www iscd.org 3. National Osteoporosis Foundation www nof.org Electronically Signed: Morales Thornton MD at 14:05 EST ,
== END | disposition home or self-care (01) ==
LOC: OPBD 08:44
PROVIDERS: PCP Family Medicine; Visit Provider Family Medicine
DX: Z78.0 Asymptomatic menopausal state (principal)
CPT/HCPCS: 77080

== ENCOUNTER → 2023-02-04 | Outpatient (CLI) | payer MEDICARE, OTHER, SELFPAY ==
[2023-02-04 12:44] LABS: Absolute Lymphocyte Count 0.48 X10^3/uL (0.83-4.51); Absolute Neutrophil Count 4.3 X10^3/uL (2.0-7.7); Basophil# 0.03 X10^3/uL; Basophil% 0.6 % (0-1); Eosinophils% 1.9 % (0-5); Hematocrit 43.1 % (37-47); Hemoglobin 13.8 g/dL (12.0-15.0); Lymphocyte # 0.48 X10^3/ul (0.83-4.51); Lymphocyte % 9.1 % (19-41); Mean Corpuscular Hgb 32.4 pg (27.0-32.0); Mean Corpuscular Volume 101.2 fL (81-99); Mean Platelet Vol. 9.9 fl (6.2-12.0); Monocyte# 0.42 X10^3/uL; Monocyte% 7.9 % (0-10); NRBC Flagged by Analyzer 0 % (0-5); Neutrophil # 4.26 X10^3/uL (2.7-7.7); Neutrophil % 80.3 % (47-70); POSITIVE DIFFERENTIAL YES; Platelet Count 232 K/mm3 (150-450); RBC Distribution Width CV 12.7 % (11.6-14.6); RBC Distribution Width SD 46.7 fl (35.1-43.9); Red Blood Count 4.26 M/mm3 (4.2-5.4); White Blood Count 5.3 K/mm3 (4.4-11.0)
[2023-02-04 12:59] LABS: Differential Indicated SCAN CRITERIA MET
[2023-02-04 13:55] LABS: AST(SGOT) 31 U/L (15-37); Alanine Aminotransfer ALT/SGPT 33 U/L (13-56); Albumin, Serum 3.5 g/dL (3.2-5.0); Alkaline Phosphatase 89 U/L (45-117); Anion Gap 5 (5-15); BUN 17 mg/dL (7-18); BUN/Creat Ratio 23.8 RATIO (10-20); Calcium,Total 9.2 mg/dL (8.5-10.1); Chloride 108 mmol/L (98-107); Creatinine, Serum 0.71 mg/dL (0.55-1.02); EST Glomerular Filtration Rate 84 mL/min (>60); Est Glom Filt Rate - Afr Amer 101 mL/min (>60); Globulin 3.4 g/dL (2.2-4.2); Glucose 81 mg/dL (74-106); Potassium 3.8 mmol/L (3.5-5.1); Protein, Total 6.9 g/dL (6.4-8.2); Sodium Level 141 mmol/L (136-145)
[2023-02-04 15:48] LABS: Differential Comment SCANNED
== END | disposition home or self-care (01) ==
PROVIDERS: PCP Family Medicine; Visit Provider Internal Medicine Rheumatology
DX: H20.9 Unspecified iridocyclitis (principal); C53.9 Malignant neoplasm of cervix uteri, unspecified; H35.063 Retinal vasculitis, bilateral; M18.0 Bilateral primary osteoarthritis of first carpometacarpal joints; M17.0 Bilateral primary osteoarthritis of knee; M47.892 Other spondylosis, cervical region; I10 Essential (primary) hypertension; H40.9 Unspecified glaucoma; Z79.899 Other long term (current) drug therapy
CPT/HCPCS: 36415; 80053; 85025

== ENCOUNTER → 2023-04-30 | Outpatient (CLI) | payer MEDICARE, OTHER, SELFPAY ==
[2023-04-30 12:23] LABS: Absolute Neutrophil Count 4.2 X10^3/uL (2.0-7.7); Basophil# 0.04 X10^3/uL; Basophil% 0.7 % (0-1); Eosinophils% 3.5 % (0-5); Hematocrit 39.8 % (37-47); Lymphocyte % 10.6 % (19-41); Mean Corp Hgb Conc 32.7 g/dL (32-36); Mean Corpuscular Hgb 32.7 pg (27.0-32.0); Mean Corpuscular Volume 100.3 fL (81-99); Mean Platelet Vol. 9.7 fl (6.2-12.0); Monocyte% 10.6 % (0-10); NRBC Flagged by Analyzer 0 % (0-5); Neutrophil # 4.18 X10^3/uL (2.7-7.7); Neutrophil % 74.2 % (47-70); POSITIVE DIFFERENTIAL YES; Platelet Count 206 K/mm3 (150-450); RBC Distribution Width CV 12.8 % (11.6-14.6); RBC Distribution Width SD 47.4 fl (35.1-43.9); Red Blood Count 3.97 M/mm3 (4.2-5.4); White Blood Count 5.6 K/mm3 (4.4-11.0)
[2023-04-30 12:39] LABS: Differential Indicated SCAN CRITERIA MET
[2023-04-30 13:02] LABS: ALB/GLOB Ratio 1.2 RATIO (0.9-2.4); AST(SGOT) 35 U/L (15-37); Alanine Aminotransfer ALT/SGPT 33 U/L (13-56); Albumin, Serum 3.5 g/dL (3.2-5.0); Alkaline Phosphatase 71 U/L (45-117); Anion Gap 5 (5-15); BUN 20 mg/dL (7-18); BUN/Creat Ratio 30.8 RATIO (10-20); Calcium,Total 9.2 mg/dL (8.5-10.1); Chloride 109 mmol/L (98-107); Creatinine, Serum 0.65 mg/dL (0.55-1.02); EST Glomerular Filtration Rate 93 mL/min (>60); Est Glom Filt Rate - Afr Amer 112 mL/min (>60); Glucose 76 mg/dL (74-106); Potassium 3.8 mmol/L (3.5-5.1); Protein, Total 6.5 g/dL (6.4-8.2); Sodium Level 143 mmol/L (136-145)
== END | disposition home or self-care (01) ==
LOC: MTLAB 10:35
PROVIDERS: PCP Family Medicine; Referring Provider Internal Medicine Rheumatology; Visit Provider Internal Medicine Rheumatology
DX: H20.9 Unspecified iridocyclitis (principal); Z79.899 Other long term (current) drug therapy
CPT/HCPCS: 36415; 80053; 85025

== ENCOUNTER → 2023-05-28 | Outpatient (CLI) | payer MEDICARE, OTHER, SELFPAY ==
--- NOTE | 2023-05-28 10:57 | ECHOD_ITS ---
Reason For Study: LVH ON EKG, HTN Procedure This was a 2D Doppler, Color Flow transthoracic echocardiogram. Exam performed in department. Left Ventricle Normal LV size. Apical false tendon noted. Left ventricular systolic function is normal. The estimated ejection fraction is 65 %. Stage 1 diastolic dysfunction. No regional wall motion abnormalities noted. Right Ventricle Normal RV size. Normal systolic function. Atria Normal left atrium. Normal right atrium. Mitral Valve Mild focal mitral valve calcification of the anterior leaflet. Mild-Moderate (1-2+) mitral valve insufficiency. Tricuspid Valve Normal tricuspid valve. Mild tricuspid valve insufficiency. Pulmonary artery systolic pressure is 26 mmHg. Aortic Valve Trisinus/trileaflet aortic valve. Mild (1+) eccentric aortic valve insufficiency. Pulmonic Valve Normal pulmonic valve. Mild (1+) pulmonic valve insufficiency. Great Vessels Normal aortic root. The pulmonary artery is normal size. Normal inferior vena cava. Pericardium/Pleural No pericardial effusion. MMode/2D Measurements & Calculations LVIDd: 5.6 cm IVSd: 1.0 cm Ao root diam: 3.7 cm LVIDs: 3.8 cm LVPWd: 0.87 cm FS: 31.9 % LAV(MOD-bp): 40.5 ml LA A4 area: 12.6 cm2 LA dimension(2D): 3.1 cm LAV(MOD-bp) Indexed: 25.3 ml/m2 LAV(MOD-sp2): 37.7 ml LAV(MOD-sp4): 37.4 ml RA A4 area: 12.4 cm2 Time Measurements MV dec time: 0.20 sec Doppler Measurements & Calculations MV E max keith: 48.5 cm/sec Lat Peak E' Keith: 6.0 cm/sec Med Peak E' Keith: 8.5 cm/sec MV A max keith: 61.4 cm/sec E/E' lat: 8.0 E/E' med: 5.7 MV E/A: 0.79 MV dec slope: 230.7 cm/sec2 Ao V2 max: 117.7 cm/sec AI max keith: 367.2 cm/sec Ao max P.5 mmHg AI max P.1 mmHg Ao V2 mean: 78.1 cm/sec AI dec slope: 336.6 cm/sec2 Ao mean P.8 mmHg AI P1/2t: 319.5 msec Ao V2 VTI: 27.9 cm AV (velocity ratio): 0.78 LV V1 max: 88.9 cm/sec PA V2 max: 72.6 cm/sec PI dec slope: 168.2 cm/sec2 LV V1 max P.2 mmHg LV V1 mean P.7 mmHg LV V1 mean: 60.2 cm/sec LV V1 VTI: 21.7 cm TR max keith: 235.2 cm/sec TR max P.1 mmHg ECHO/Echo Complete Interpretation Summary Normal LV size. Left ventricular systolic function is normal. The estimated ejection fraction is 65 %. Stage 1 diastolic dysfunction. Mild (1+) eccentric aortic valve insufficiency. Mild-Moderate (1-2+) mitral valve insufficiency. Mild tricuspid valve insufficiency. Ordering Physician: Rosita Lentz Referring Physician: Rosita Lentz Performed By: Shaina Quiroga RDCS, RVT
== END | disposition home or self-care (01) ==
LOC: CVS 10:53
PROVIDERS: PCP Family Medicine; Referring Provider Family Medicine; Visit Provider Family Medicine
DX: I10 Essential (primary) hypertension (principal); I51.7 Cardiomegaly
CPT/HCPCS: 93306

== ENCOUNTER → 2023-07-22 | Outpatient (CLI) | payer MEDICARE, OTHER, SELFPAY ==
[2023-07-22 12:47] LABS: Absolute Lymphocyte Count 0.29 X10^3/uL (0.83-4.51); Absolute Neutrophil Count 5.1 X10^3/uL (2.0-7.7); Basophil# 0.04 X10^3/uL; Basophil% 0.6 % (0-1); Eosinophil# 0.09 X10^3/uL; Eosinophils% 1.5 % (0-5); Hematocrit 41.1 % (37-47); Hemoglobin 13.2 g/dL (12.0-15.0); Lymphocyte # 0.29 X10^3/ul (0.83-4.51); Lymphocyte % 4.7 % (19-41); Mean Corp Hgb Conc 32.1 g/dL (32-36); Mean Corpuscular Hgb 32.8 pg (27.0-32.0); Mean Platelet Vol. 9.8 fl (6.2-12.0); Monocyte# 0.59 X10^3/uL; Monocyte% 9.6 % (0-10); NRBC Flagged by Analyzer 0 % (0-5); Neutrophil # 5.13 X10^3/uL (2.7-7.7); Neutrophil % 83.1 % (47-70); POSITIVE DIFFERENTIAL YES; Platelet Count 180 K/mm3 (150-450); RBC Distribution Width CV 12.6 % (11.6-14.6); RBC Distribution Width SD 46.1 fl (35.1-43.9); Red Blood Count 4.03 M/mm3 (4.2-5.4); White Blood Count 6.2 K/mm3 (4.4-11.0)
[2023-07-22 12:52] LABS: Differential Indicated SCAN CRITERIA MET
[2023-07-22 14:12] LABS: ALB/GLOB Ratio 1.1 RATIO (0.9-2.4); AST(SGOT) 35 U/L (15-37); Alanine Aminotransfer ALT/SGPT 32 U/L (13-56); Albumin, Serum 3.4 g/dL (3.2-5.0); Alkaline Phosphatase 74 U/L (45-117); Anion Gap 4 (5-15); BUN 14 mg/dL (7-18); BUN/Creat Ratio 20.5 RATIO (10-20); Calcium,Total 9.2 mg/dL (8.5-10.1); Chloride 108 mmol/L (98-107); Creatinine, Serum 0.68 mg/dL (0.55-1.02); EST Glomerular Filtration Rate 88 mL/min (>60); Est Glom Filt Rate - Afr Amer 106 mL/min (>60); Globulin 3.2 g/dL (2.2-4.2); Glucose 89 mg/dL (74-106); Potassium 3.9 mmol/L (3.5-5.1); Protein, Total 6.6 g/dL (6.4-8.2); Sodium Level 139 mmol/L (136-145)
== END | disposition home or self-care (01) ==
LOC: MTLAB 10:49
PROVIDERS: PCP Family Medicine; Referring Provider Internal Medicine Rheumatology; Visit Provider Internal Medicine Rheumatology
DX: H20.9 Unspecified iridocyclitis (principal); Z79.899 Other long term (current) drug therapy
CPT/HCPCS: 36415; 80053; 85025

== ENCOUNTER → 2023-10-14 | Outpatient (CLI) | payer MEDICARE, OTHER, SELFPAY ==
[2023-10-14 12:20] LABS: Absolute Lymphocyte Count 0.85 X10^3/uL (0.83-4.51); Absolute Neutrophil Count 4.8 X10^3/uL (2.0-7.7); Basophil# 0.03 X10^3/uL; Basophil% 0.5 % (0-1); Eosinophil# 0.19 X10^3/uL; Eosinophils% 2.9 % (0-5); Hematocrit 40.6 % (37-47); Hemoglobin 12.9 g/dL (12.0-15.0); Lymphocyte # 0.85 X10^3/ul (0.83-4.51); Lymphocyte % 12.9 % (19-41); Mean Corp Hgb Conc 31.8 g/dL (32-36); Mean Corpuscular Hgb 32.2 pg (27.0-32.0); Mean Corpuscular Volume 101.2 fL (81-99); Monocyte# 0.68 X10^3/uL; Monocyte% 10.3 % (0-10); NRBC Flagged by Analyzer 0 % (0-5); Neutrophil # 4.83 X10^3/uL (2.7-7.7); Neutrophil % 73.1 % (47-70); Platelet Count 217 K/mm3 (150-450); RBC Distribution Width SD 48.1 fl (35.1-43.9); Red Blood Count 4.01 M/mm3 (4.2-5.4); White Blood Count 6.6 K/mm3 (4.4-11.0)
[2023-10-14 13:05] LABS: ALB/GLOB Ratio 1.1 RATIO (0.9-2.4); AST(SGOT) 27 U/L (15-37); Alanine Aminotransfer ALT/SGPT 26 U/L (13-56); Albumin, Serum 3.2 g/dL (3.2-5.0); Alkaline Phosphatase 72 U/L (45-117); Anion Gap 5 (5-15); BUN 18 mg/dL (7-18); BUN/Creat Ratio 26.1 RATIO (10-20); Calcium,Total 8.8 mg/dL (8.5-10.1); Chloride 110 mmol/L (98-107); Creatinine, Serum 0.69 mg/dL (0.55-1.02); EST Glomerular Filtration Rate 87 mL/min (>60); Est Glom Filt Rate - Afr Amer 105 mL/min (>60); Glucose 88 mg/dL (74-106); Potassium 3.7 mmol/L (3.5-5.1); Protein, Total 6.2 g/dL (6.4-8.2); Sodium Level 143 mmol/L (136-145)
== END | disposition home or self-care (01) ==
LOC: MTLAB 10:59
PROVIDERS: PCP Family Medicine; Referring Provider Internal Medicine Rheumatology; Visit Provider Internal Medicine Rheumatology
DX: H20.9 Unspecified iridocyclitis (principal); Z79.899 Other long term (current) drug therapy
CPT/HCPCS: 36415; 80053; 85025

== ENCOUNTER → 2023-12-24 | Outpatient (CLI) | payer MEDICARE, OTHER, SELFPAY ==
--- OUTSIDE RECORDS SUMMARY | 2023-12-24 13:40 | XMS RPT_ITS | CCD ---
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 Name Role Phone Rosita Lentz Primary Care Provider ROSITA LENTZ Primary Care Unavailabl e RITESH JIMENEZ Referring Unavailable Mayr Carmen Rosita Piper Primary Care Provider Rosita Lentz MD Primary Care Provider Luis Nguyen MD Unavailable Lauren Palacios APRN, CNP Unavailable RITESH JIMENEZ Attending Unavailable MIEDEL, ROSITA E Primary Care Unavailable RITESH JIMENEZ Referring Unavailable MIEDEL, ROSITA E Primary Care Unavailable RITESH JIMENEZ Referring Unavailable MIEDEL, ROSITA E Primary Care Unavailable RITESH JIMENEZ Referring Unavailable MIEDEL, ROSITA E Referring Unavailable MIEDEL, ROSITA E Primary Care Unavailable RITESH JIMENEZ Attending Unavailable LENYEDLO, ROSITA E Primary Care Unavailable RITESH JIMENEZ Referring Unavailable MIEDEL, ROSITA E Referring Unavailable MIEDEL, ROSITA E Primary Care Unavailable RITESH JIMENEZ Attending Unavailable MIEDEL, ROSITA E Primary Care Unavailable RITESH JIMENEZ Referring Unavailable MIEDEL, ROSITA E Referring Unavailable MIEDEL, ROSITA E Primary Care Unavailable RITESH JIMENEZ Attending Unavailable RITESH JIMENEZ Referring Unavailable MIEDEL, ROSITA E Primary Care Unavailable MIEDEL, ROSITA E Referring Unavailable MIEDEL, ROSITA E Primary Care Unavailable RITESH JIMENEZ Attending Unavailable LENYEDEL, ROSITA E Primary Care Unavailable RITESH JIMENEZ Referring Unavailable MIEDEL, ROSITA E Primary Care Unavailable RITESH JIMENEZ Referring Unavailable RITESH JIMENEZ Attending Unavailable JANETT BURTON Admitting Unavailable ADILIA JACKSON Attending Unavailable ROSITA LENTZ Primary Care Unavailable RITESH JIMENEZ Consulting Unavailable Rosita Lentz MD Primary Care Provider Luis Nguyen MD Unavailable [phone] Lauren Palacios APRN, CNP Unavailable LAUREN MCALLISTER Attending Unavailable ROSITA LENTZ Primary Care Unavailable LAUREN MCALLISTER Attending Unavailable ROSITA LENTZ Primary Care Unavailable Allergies Allergy Classification Reported Allergen(s) Allergy Type Date of Onset Reaction(s) Facility (20 sources) Codeine; Translations: [CODEINE] Drug Allergy 5 Other (See Comments) [facility] Work Phone: (20 sources) Simvastatin; Translations: [SIMVASTATIN] Drug Allergy 0 Other (See Comments) [facility] Work Phone: (3 sources) Sulfonamides (Antibiotic) Propensity to adverse reactions to drug 1 Other (See Comments) [facility] Work Phone: (19 sources) Ibuprofen; Translations: [IBUPROFEN] Drug Allergy 7 Other: See Comments [facility] (19 sources) Lisinopril; Translations: [LISINOPRIL] Drug Allergy 9 Cough [facility] (20 sources) Sulfonamides (Antibiotic); Translations: [SULFA (SULFONAMIDE ANTIBIOTICS)] Propensity to adverse reactions 5 [facility] (5 sources) Morphinan opioid; Translations: [OPIOIDS - MORPHINE ANALOGUES] Drug Allergy 2 Rash, Vomiting [facility] (4 sources) Simvastatin Allergy to substance 0 [facility] Medications Current Medications Medication Drug Class(es) Dates Sig (Normalized) Sig (Original) ALPRAZolam 0.25 mg disintegrating oral tablet (1 source) Benzodiazepine Start: 02-24-2021 ALPRAZolam (NIRAVAM) dissolvable tablet 0.25 mg amLODIPine 2.5 mg oral tablet (20 sources) Dihydropyridine [employer] [facility] Start: 02-21-2023 amLODIPine (Norvasc) 2.5 MG tablet Completed/Discontinued Medications Medication Drug Class(es) Dates Sig (Normalized) Sig (Original) acetaminophen 500 mg oral tablet (5 sources) Start: 03-20-2021 acetaminophen (TYLENOL) 500 mg tablet Take 1,000 mg by mouth. 0 03/20/2021 Active Problems Active Problems Problem Classification Problem Date Documented Date Episodic/Chronic Cancer of cervix (11 sources) Malignant neoplasm of endocervix; Translations: [Malignant neoplasm of endocervix] Onset: 02-28-2021 02-28-2021 Chronic Disorders of lipid metabolism (17 sources) Mixed hyperlipidemia; Translations: [Mixed hyperlipidemia] Onset: 03-16-2016 03-16-2016 Chronic Essential hypertension (20 sources) Essential hypertension; Translations: [Essential (primary) hypertension] Onset: 03-16-2016 11-27-2021 Chronic Open wounds of extremities (17 sources) Laceration of left middle finger; Translations: [Laceration without foreign body of left middle finger without damage to nail, initial encounter] 06-13-2022 Episodic Osteoarthritis (17 sources) Osteoarthritis of left knee joint; Translations: [Unilateral primary osteoarthritis, left knee] Onset: 07-16-2019 07-16-2019 Chronic Other connective tissue disease (17 sources) History of total knee arthroplasty; Translations: [Presence of left artificial knee joint] Onset: 07-22-2019 07-27-2019 Chronic Other fractures (20 sources) Closed fracture axis, odontoid process ; Translations: [Unspecified displaced fracture of second cervical vertebra, subsequent encounter for fracture with routine healing] Onset: 06-13-2022 06-13-2022 Episodic Residual codes; unclassified (2 sources) Postoperative state; Translations: [Post-operative state] Onset: 02-28-2021 02-28-2021 Retinal detachments; defects; vascular occlusion; and retinopathy (17 sources) Retinal vasculitis; 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, unspecified eye] Onset: 07-16-2019 07-16-2019 Chronic Systemic lupus erythematosus and connective tissue disorders (17 sources) Systemic vasculitis; 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] Onset: 07-16-2019 07-16-2019 Chronic Unclassified (1 source) Established Patient Onset: 07-24-2022 Past or Other Problems Problem Classification Problem Date Documented Da te Episodic/Chronic Cancer of cervix (11 sources) Cervical Papanicolaou smear positive for malignant neoplasm; Translations: [Cytologic evidence of malignancy on smear of cervix] Onset: 02-24-2021 02-24-2021 Episodic E Codes: Fall (1 source) Fall on same level, unspecified, initial encounter; Translations: [Fall from ground level] Onset: 06-12-2022 Episodic Inflammation; infection of eye (except that caused by tuberculosis or sexually transmitteddisease) (17 sources) Uveitis; Translations: [Unspecified iridocyclitis] Onset: 03-16-2016 11-27-2021 Episodic Other connective tissue disease (1 source) Pain in left hand; Translations: [Left hand pain] Onset: 06-12-2022 Episodic Other ear and sense organ disorders (17 sources) Impacted cerumen of bilateral ears; Translations: [Impacted cerumen, bilateral] Onset: 03-16-2016 03-16-2016 Episodic Other fractures (2 sources) Unspecified displaced fracture of second cervical vertebra, subsequent encounter for fracture with delayed healing; Translations: [Closed odontoid fracture with delayed healing, subsequent encounter] Onset: 07-10-2022 Episodic Other fractures (1 source) Unspecified displaced fracture of second cervical vertebra, initial encounter for closed fracture; Translations: [Closed odontoid fracture, initial encounter ([facility])] Onset: 06-12-2022 Episodic Other injuries and conditions due to external causes (1 source) Unspecified multiple injuries, initial encounter; Translations: [Multiple abrasions] Onset: 06-12-2022 Episodic Other non-traumatic joint disorders (17 sources) Pain in left knee; Translations: [Pain in joint, lower leg] Onset: 07-16-2019 07-16-2019 Episodic Skull and face fractures (18 sources) Closed fracture of nasal bones; Translations: [Fracture of nasal bones, subsequent encounter for fracture with routine healing] Onset: 06-12-2022 06-13-2022 Episodic Spondylosis; intervertebral disc disorders; other back problems (4 sources) Neck pain; Translations: [Cervicalgia] Onset: 06-26-2022 Episodic Results Test Name Value Interpretation Reference Range Facil ity Vital Signs Date Time Vital Sign Value Performing Clinician [facility] 09-05-2023 12:49-0400 Body height 162.6 cm Lauren Anguiano CNP Work Phone: [facility] 09-05-2023 12:49-0400 Body mass index (BMI) [Ratio] 21.11 kg/m2 Lauren Frankie FISH TECHNOLOGIST - UPS DRIVER Work Phone: [facility] [employer] 09-05-2023 12:49-0400 Body weight 55.79 kg Lauren Frankie FISH TECHNOLOGIST - UPS DRIVER Work Phone: [facility] [employer] 09-05-2023 12:49-0400 Diastolic blood pressure 77 mm[Hg] Lauren Frankie FISH TECHNOLOGIST - UPS DRIVER Work Phone: [facility] [employer] 09-05-2023 12:49-0400 Heart rate 75 /min Lauren Frankie FISH TECHNOLOGIST - UPS DRIVER Work Phone: [facility] [employer] 09-05-2023 12:49-0400 Systolic blood pressure 177 mm[Hg] Lauren Frankie FISH TECHNOLOGIST - UPS DRIVER Work Phone: [facility] 03-07-2023 07:44-0400 Body height 165.1 cm Lauren Frankie FISH TECHNOLOGIST - UPS DRIVER Work Phone: [facility] 03-07-2023 07:44-0400 Body mass index (BMI) [Ratio] 20.63 kg/m2 Lauren Frankie FISH TECHNOLOGIST - UPS DRIVER Work Phone: [facility] 03-07-2023 07:44-0400 Body weight 56.25 kg Lauren Frankie FISH TECHNOLOGIST - UPS DRIVER Work Phone: [facility] 03-07-2023 07:44-0400 Diastolic blood pressure 74 mm[Hg] Lauren Frankie FISH TECHNOLOGIST - UPS DRIVER Work Phone: [facility] 03-07-2023 07:44-0400 Heart rate 73 /min Lauren Frankie FISH TECHNOLOGIST - UPS DRIVER Work Phone: [facility] [employer] 03-07-2023 07:44-0400 Systolic blood pressure 157 mm[Hg] Lauren Frankie FISH TECHNOLOGIST - UPS DRIVER Work Phone: [facility] [employer] 10-16-2022 08:15-0500 Body height 165.1 cm [facility] Work Phone: [place] [address]-15-2022 08:15-0500 Body weight 56.8 kg Ritesh Tony DO Work Phone: [facility] 10-16-2022 08:15-0500 Diastolic blood pressure 68 mm[Hg] Ritesh Tony DO Work Phone: [facility] 10-16-2022 08:15-0500 Heart rate 67 /min Ritesh Tony DO Work Phone: [facility] 10-16-2022 08:15-0500 SaO2% (BldA) [Mass fraction] 98 % Ritesh Tony DO Work Phone: [facility] 10-16-2022 08:15-0500 Systolic blood pressure 135 mm[Hg] Ritesh Tony DO Work Phone: [facility] 09-04-2022 08:27-0400 Body height 165.1 cm Ritesh Tony DO Work Phone: [facility] 09-04-2022 08:27-0400 Body temperature 97 [degF] Ritesh Tony DO Work Phone: [facility] 09-04-2022 08:27-0400 Body weight 52.16 kg Ritesh Tony DO Work Phone: [facility] 09-04-2022 08:27-0400 Diastolic blood pressure 72 mm[Hg] Ritesh Tony DO Work Phone: [facility] 09-04-2022 08:27-0400 Heart rate 68 /min Ritesh Tony DO Work Phone: [facility] 09-04-2022 08:27-0400 SaO2% (BldA) [Mass fraction] 98 % Ritesh Tony DO Work Phone: [facility] 09-04-2022 08:27-0400 Systolic blood pressure 136 mm[Hg] Ritesh Tony DO Work Phone: [facility] 08-07-2022 08:05-0400 Body height 165.1 cm Ritesh Tony DO Work Phone: [facility] 08-07-2022 08:05-0400 Body weight 52.6 kg Ritesh Tony DO Work Phone: [facility] 08-07-2022 08:05-0400 Diastolic blood pressure 78 mm[Hg] Ritesh Tony DO Work Phone: [facility] 08-07-2022 08:05-0400 Heart rate 78 /min Ritesh Tony DO Work Phone: [facility] 08-07-2022 08:05-0400 SaO2% (BldA) [Mass fraction] 98 % Ritesh Tony DO Work Phone: [facility] 08-07-2022 08:05-0400 Systolic blood pressure 128 mm[Hg] Ritesh Tony DO Work Phone: [facility] 07-24-2022 08:43-0400 Body height 165.1 cm Ritesh Tony DO Work Phone: [facility] 07-24-2022 08:43-0400 Body temperature 97.2 [degF] Ritesh Tony DO Work Phone: [facility] 07-24-2022 08:43-0400 Body weight 52.62 kg Ritesh Tony DO Work Phone: [facility] 07-24-2022 08:43-0400 Diastolic blood pressure 69 mm[Hg] Ritesh Tony DO Work Phone: [facility] 07-24-2022 08:43-0400 Heart rate 60 /min Ritesh Tony DO Work Phone: [facility] 07-24-2022 08:43-0400 SaO2% (BldA) [Mass fraction] 96 % Ritesh Tony DO Work Phone: [facility] 07-24-2022 08:43-0400 Systolic blood pressure 140 mm[Hg] Ritesh Tony DO Work Phone: [facility] 07-10-2022 09:04-0400 Body height 165.1 cm Ritesh Tony DO Work Phone: [facility] 07-10-2022 09:04-0400 Body temperature 97.9 [degF] Ritesh Tony DO Work Phone: [facility] 07-10-2022 09:04-0400 Body weight 52.62 kg Ritesh Tony DO Work Phone: [facility] 07-10-2022 09:04-0400 Diastolic blood pressure 76 mm[Hg] Ritesh Tony DO Work Phone: [facility] 07-10-2022 09:04-0400 Heart rate 77 /min Ritesh Tony DO Work Phone: [facility] 07-10-2022 09:04-0400 SaO2% (BldA) [Mass fraction] 98 % Ritesh Tony DO Work Phone: [facility] 07-10-2022 09:04-0400 Systolic blood pressure 120 mm[Hg] Ritesh Tony DO Work Phone: [facility] 03-02-2021 06:35-0400 Body Temperature 98.6 [degF] Luis CHAWLAA Work Phone: 03-02-2021 06:35-0400 BP Diastolic 85 mm[Hg] Luis CHAWLAA Work Phone: 03-02-2021 06:35-0400 BP Systolic 112 mm[Hg] Luis CHAWLAA Work Phone: 03-02-2021 06:35-0400 Pulse (Heart Rate) 84 /min Luis CHAWLAA Work Phone: 03-02-2021 06:35-0400 Pulse Oximetry 100 % Luis CHAWLAA Work Phone: 03-02-2021 06:35-0400 Respiratory Rate 18 /min Luis CHAWLAA Work Phone: 02-28-2021 13:43-0400 BMI (Body Mass Index) 18.88 kg/m2 Luis CHAWLAA Work Phone: 02-28-2021 13:43-0400 Body weight 53.07 kg Luis CHAWLAA Work Phone: 02-28-2021 13:43-0400 Height 167.6 cm Luis ARMSTRONG Work Phone: 02-24-2021 11:15-0400 Pulse (Heart Rate) 65 /min Luis ARMSTRONG Work Phone: 02-24-2021 11:15-0400 Pulse Oximetry 100 % Luis ARMSTRONG Work Phone: 02-24-2021 11:15-0400 Respiratory Rate 18 /min Luis ARMSTRONG Work Phone: 02-24-2021 11:00-0400 BP Diastolic 72 mm[Hg] Luis ARMSTRONG Work Phone: 02-24-2021 11:00-0400 BP Systolic 139 mm[Hg] Luis ARMSTRONG Work Phone: 02-24-2021 10:33-0400 Body Temperature 97.39 [degF] Luis ARMSTRONG Work Phone: 02-24-2021 08:15-0400 BMI (Body Mass Index) 18.95 kg/m2 Luis ARMSTRONG Work Phone: 02-24-2021 08:15-0400 Body weight 53.25 kg Luis ARMSTRONG Work Phone: 02-24-2021 08:15-0400 Height 167.6 cm Luis ARMSTRONG Work Phone: 02-20-2021 10:12-0400 Body Temperature 97.7 [degF] Luis ARMSTRONG Work Phone: 02-20-2021 10:12-0400 BP Diastolic 80 mm[Hg] Luis ARMSTRONG Work Phone: 02-20-2021 10:12-0400 BP Systolic 156 mm[Hg] Luis ARMSTRONG Work Phone: 02-20-2021 10:12-0400 Pulse (Heart Rate) 69 /min Luis ARMSTRONG Work Phone: 02-20-2021 10:12-0400 Pulse Oximetry 100 % Luis ARMSTRONG Work Phone: 02-20-2021 10:11-0400 BMI (Body Mass Index) 18.95 kg/m2 Luis ARMSTRONG Work Phone: 02-20-2021 [id number]:110400 Body weight 53.25 kg Luis Nguyen [employer] Work Phone: 02-20-2021 10:110400 Height 167.6 cm Luis Nguyen [employer] Work Phone: Encounters Encounter Date Encounter Type Care Provider Facility Start: 09-05-2023 End: 09-05-2023 ambulatory LAUREN MCALLISTER [facility] Start: 09-05-2023 End: 09-05-2023 Office outpatient visit 15 minutes Lauren Mcallister FISH TECHNOLOGIST - UPS DRIVER Work Phone: [facility] Gynecologic Oncology Procedures Date Procedure Procedure Detail Performing Clinician Start: 08-21-2022 Radex spine cervical 2 or 3 views Ritesh Jimenez DO Work Phone: Start: 08-07-2022 Radex spine cervical 2 or 3 views Ritesh Jimenez DO Work Phone: Start: 06-26-2022 Radex spine cervical 2 or 3 views Ritesh Jimenez DO Work Phone: Start: 06-12-2022 Antibody screen RITESH JIMENEZ Plan of Treatment Date Care Activity Detail Author Start: 06-12-2032 DTaP/Tdap/Td Vaccines (2 - Td or Tdap) DTaP/Tdap/Td Vaccines (2 - Td or Tdap) [facility] Start: 06-12-2032 Urine microalbumin profile DTAP,TDAP,TD (2 - Td or Tdap) [facility] Start: 06-13-2025 DIABETES SCREEN DIABETES SCREEN [facility] Start: 03-12-2024 End: 03-12-2024 Patient encounter procedure 03/12/2024 10:30 AM EDT Office Visit [facility] Gynecologic Oncology [address] [id number] Frankie Lauren, FISH TECHNOLOGIST - UPS DRIVER [address] [place] [address] [facility] Gynecologic Oncology Start: 09-05-2023 End: 09-05-2023 Patient encounter procedure 09/05/2023 Office Visit Gynecologic Oncology Frankie, Lauren, FISH TECHNOLOGIST - UPS DRIVER [address] [facility] [address] [place] [address] [facility] Gynecologic Oncology Start: 08-02-2023 Influenza vaccination [facility] Start: 07-10-2023 BP CONTROLLED (<130/80) BP CONTROLLED (<130/80) [facility] Start: 08-02-2022 Influenza vaccination INFLUENZA (#1) [facility] Start: 07-30-2022 COVID-19 VACCINE (5 - Booster for Moderna series) COVID-19 VACCINE (5 - Booster for Moderna series) [facility] Start: 05-25-2022 COVID-19 VACCINE (5 - Booster for Moderna series) COVID-19 VACCINE (5 - Booster for Moderna series) [facility] Start: 05-25-2022 COVID-19 Vaccine (5 - Moderna series) COVID-19 Vaccine (5 - Moderna series) [facility] Start: 12-02-2021 ADVANCE DIRECTIVE DISCUSSION ADVANCE DIRECTIVE DISCUSSION [facility] Start: 12-02-2021 DEPRESSION ASSESSMENT DEPRESSION ASSESSMENT [facility] Start: 08-02-2021 Influenza vaccination Flu vaccine (Season Ended) [facility] Work Phone: Start: 03-13-2021 End: 03-13-2021 Office Visit 03/13/2021 Office Visit Gynecologic Oncology Luis Nguyen MD [address] [facility] [place], [place] [id number] [facility] [place] MAGNETIC GRINDER OPERATOR Oncology Start: 02-28-2021 End: 02-28-2021 Appointment [facility] General Surgery Start: 02-24-2021 End: 02-24-2021 Appointment 02/24/2021 Appointment General Surgery Luis Nguyen MD [address] [facility] [place] [address] [phone] [facility] General Surgery Start: 02-16-2021 Annual Wellness Visit (AWV) Annual Wellness Visit (AWV) [facility] Work Phone: Start: 10-09-2020 ANNUAL PCP TEAM CHRONIC DISEASE VISIT ANNUAL PCP TEAM CHRONIC DISEASE VISIT [facility] Start: 08-02-2020 Influenza vaccination Flu vaccine (#1) [facility] Work Phone: Start: 06-20-2020 Adult depression screening assessment DEPRESSION SCREENING [facility] Start: 12-15-2019 FECAL OCCULT BLOOD FECAL OCCULT BLOOD [facility] Start: 1996 Screening for osteoporosis DEXA (modify frequency per FRAX score) [facility] Work Phone: Start: 1991 Shingles Vaccine (1 of 2) Shingles Vaccine (1 of 2) [facility] Work Phone: Start: 1991 Zoster Vaccines (1 of 2) Zoster Vaccines (1 of 2) [facility] Start: 1960 DTaP/Tdap/Td vaccine (1 - Tdap) DTaP/Tdap/Td vaccine (1 - Tdap) [facility] Work Phone: Start: 1960 SHINGRIX VACCINE (1 of 2) SHINGRIX VACCINE (1 of 2) [facility] Start: 1959 BP CONTROLLED (<130/80) BP CONTROLLED (<130/80) [facility] Start: 1953 Depression Screening Depression Screening [facility] Start: 1941 Hepatitis B Vaccines (1 of 3 - 3-dose series) Hepatitis B Vaccines (1 of 3 - 3-dose series) [facility] Start: 1941 Hepatitis C screening [facility] C screen [facility] Work Phone: Start: 1941 Lipid panel Lipid Panel [facility] Start: 1941 Screening for osteoporosis Bone Density Scan [facility] End: 02-24-2021 Blood glucose - POCT Blood glucose - POCT Point of Care Testing STAT One Time for 1 Occurrences starting 02/24/2021 until 02/24/2021 [facility] Work Phone: Immunizations Immunization Date Immunization Notes Care Provider Emile trimble 06-12-2022 tetanus toxoid, redu carlos diphtheria toxoid, and acellular pertussis vaccine, adsorbed [facility] Work Phone: [facility] 09-01-2020 influenza virus vacc ine, unspecified formulation Lauren Mcallister FISH TECHNOLOGIST - UPS DRIVER Work Phone: [facility] 03-16-2016 pneumococcal conjuga te vaccine, 13 valent [facility] Work Phone: [facility] Work Phone: 03-16-2013 tetanus and diphther ia toxoids, adsorbed, preservative free, for adult use (2 Lf of tetanus toxoid and 2 Lf of diphtheria toxoid) [facility] Work Phone: [facility] Work Phone: 11-21-2006 pneumococcal polysaccharide vaccine, 23 valent [facility] Work Phone: [facility] Work Phone: Payers Date Payer Category Payer Private Health Insurance [id number] 2013 Private Health Insurance HUMANA HUMANA MEDICARE SUPPLEMENT [id number] 2013-Present [phone] [address] [address] [place] [address] Indemnity [id number] 2013 Private Health Insurance [id number] 2006 Medicare [id number] 2006 Medicare MEDICARE MEDICAR E A AND B [id number] 2006-Present [phone] [place] [address] Medicare [id number] 2006 Medicare [id number] Social History Date Type Detail Facility Start: 02-20-2021 End: 02-28-2021 Tobacco smoking status NHIS [facility] Work Phone: End: 12-02-1957 History of tobacco use Current smoker [employer] Phone: Start: 02-20-2021 End: 07-10-2022 Tobacco use and exposure Never used [employer] Phone: Start: 02-20-2021 End: 11-20-2022 Alcohol intake Ex-drinker (finding) [facility] Phone: Start: 1940 Sex Assigned At Not on file S [employer] Work Phone: Start: 06-02-2022 End: 03-07-2023 Exposure to SARS-CoV-2 (event) Not sure [facility] Phone: Start: 07-02-2011 End: 07-10-2022 Tobacco smoking status LAIS Never smoked tobacco [facility] Start: 06-11-2022 End: 10-16-2022 Alcohol intake Current non-drinker of alcohol (finding) [facility] Start: 06-12-2022 History SDOH Financial 5 [facility] Start: 06-12-2022 History SDOH Food Worry 1 [facility] Start: 06-12-2022 History SDOH Transpo rt Med 2 [facility] End: [birth year]-02-1957 History of tobacco use Cigarette Smoker [facility] Start: 11-20-2022 History of Social function [facility] Start: 11-20-2022 Tobacco use panel [facility] Medical Equipment Procedure Code Equipment Code Equipment Origin al Text Equipment Identifier Dates Cement Simplex B one High Viscosity - [id number] Start: 07-22-2019 Insert Triathlon 3 10mm Tibial Bearing Cruciate Retain Sterile Knee - [id number] Start: 07-22-2019 Component Triath emily 3 Femoral Cruciate Retain Cemented Knee Left - [id number] Start: 07-22-2019 Component Triath emily 32mm 10mm Patellar Asymmetric Knee - [id number] Start: 07-22-2019 Baseplate Triath emily 3 Tibial Primary Cement Knee - [id number] Start: 07-22-2019 Clinical Notes 06-12-2022 to 09-05-2023 Lauren Mcallister APRN - JONA - 09/05/2023 1:00 PM EDTTelephone Encounter - Lauren Mcallister, KAMILLA - UPS DRIVER - 03/21/2023 2:07 PM EDTTelephone Encounter - Lauren Mcallister, FISH TECHNOLOGIST - UPS DRIVER - 03/21/2023 2:07 PM EDT Note Date & Type Note Facility 09-05-2023 History of Presen t illness Narrative Images from the original note were not included. @LOGOIMAGE@ CC: stage I B3 cervical cancer HISTORY OF THE PRESENT ILLNESS: India Rodriguez is a 83 y.o. India Rodriguez female with a stage I B3 cervical cancer diagnosed in January 2021. She was treated with abdominal radical hysterectomy with BSO lymph node dissection followed by external beam radiotherapy as she did meet Sedlis criteria for being an intermediate risk for recurrence. She received radiation therapy at [facility]. Radiation therapy summary; Interval History The patient denies any vaginal bleeding, pelvic pain, adenopathy, sciatica or leg swelling. Denies any vaginal bleeding. Not using dilator. Does daily exercises TID for vertigo, well controlled this way. This also relieves occasional mild sciatica pain, not worsening, improving. Patient reports since completion of radiation her stools are softer than they normally are. Denies diarrhea. Takes Imodium as needed which helps. Has yearly pap smears. Pt reports her blood pressure is always high with OV. Normal at home. Pt has 6 grand children and 10 great grandchildren. [address] She feels very blessed. Past Medical History: Diagnosis Date Arthritis ASCUS with positive high risk HPV cervical 2009 Atrial fibrillation (CMS/HCC) (HCC) patient had an episode with delerium Cataract Glaucoma right HSV (herpes simplex virus) anogenital infection Hyperactive delirium after surgical procedure Hypertension Migraines Pneumonia Retinal vasculitis Systemic rheumatoid vasculitis (HCC) Uveitis Past Surgical History: Procedure Laterality Date ARM SURGERY (HISTORICAL) Right 2013 broken CATARACT EXTRACTION Right COLPOSCOPY 2005 DILATION AND CURETTAGE OF UTERUS EYE SURGERY KNEE ARTHROSCOPY Left 07/2019 SKIN BIOPSY SKIN CANCER EXCISION 12/2019 TONSILLECTOMY AND ADENOIDECTOMY (HISTORICAL) 1952 TOTAL ABDOMINAL HYSTERECTOMY 02/28/2021 Bilateral salpingo oophorectomy, bilateral sentinel lymph node biopsy; Dr. Luis Nguyen @[facility]@ Allergies as of 09/05/2023 - Reviewed 09/05/2023 Allergen Reaction Noted Simvastatin 05/10/2010 Sulfa antibiotics 07/05/2005 Codeine 07/05/2005 REVIEW OF SYSTEMS: As per the HPI, otherwisenegative. Vitals: 09/05/23 1249 BP: (!) 177/77 Pulse: 75 Body mass index is 21.11 kg/m . Physical Exam Constitutional: Appearance: Normal appearance. HENT: Head: Normocephalic. Pulmonary: Effort: Pulmonary effort is normal. Abdominal: Palpations: Abdomen is soft. Comments: Well-healed Pfannenstiel incision Genitourinary: Comments: .Uterus, cervix, bilateral adnexa surgically absent. No lesions or nodularity of the vaginal cuff, posterior cul-de-sac or rectovaginal vault. Very atrophic vaginal mucosa Skin: General: Skin is warm and dry. Neurological: Mental Status: She is alert and oriented to person, place, and time. Psychiatric: Mood and Affect: Mood normal. Behavior: Behavior normal. ASSESSMENT/PLAN: 83 y.o. History of stage I B3 cervical cancer currently with no evidence of disease on exam. Also follows up with radiation oncology every 6 months. Yearly pap smears. Follow-up in 6 months. Total visit time of 15 minutes much of a spent in counseling concerning the need for long-term follow-up, signs and symptoms of recurrent disease Plan: Follow-up every 4 months. Would recommend a Pap smear of vaginal cuff once a year. She will be due for Pap smear at her next office visit. documented in this encounter [facility] 03-21-2023 Telephone encounter Note Pt aware of pap results, will repeat in 1 year. Pt verbalized understanding, no further questions. [facility] 03-21-2023 Miscellaneous Notes Pt aware of pap results, will repeat in 1 year. Pt verbalized understanding, no further questions. documented in this encounter [facility] 03-07-2023 History of Presen t illness Narrative Images from the original note were not included. @LOGOIMAGE@ CC: stage I B3 cervical cancer HISTORY OF THE PRESENT ILLNESS: India Rodriguez is a 82 y.o. India Rodriguez female with a stage I B3 cervical cancer diagnosed in January 2021. She was treated with abdominal radical hysterectomy with BSO lymph node dissection followed by external beam radiotherapy as she did meet Sedlis criteria for being an intermediate risk for recurrence. She received radiation therapy at [facility]. Radiation therapy summary; Interval History The patient denies any vaginal bleeding, pelvic pain, adenopathy, sciatica or leg swelling. Patient does continue to report mild discoloration after using vaginal dilator. Denies any vaginal bleeding. Does not use dilator as often as she is supposed to. This fall, she slipped while cleaning her trash can outside, fractured 2 c-vertebrae, wore neck and head brace for several months. She recovered well and has to be careful with what she lifts and positioning. Doing well overall. Patient reports since completion of radiation her stools are softer than they normally are. Denies diarrhea. Takes Imodium as needed which helps. Due for Pap smear today. Pt has 6 grand children and 9 great grandchildren. [address]! She feels very blessed. Past Medical History: Diagnosis Date Arthritis ASCUS with positive high risk HPV cervical 2009 Atrial fibrillation (CMS/HCC) (HCC) patient had an episode with delerium Cataract Glaucoma right HSV (herpes simplex virus) anogenital infection Hyperactive delirium after surgical procedure Hypertension Migraines Pneumonia Retinal vasculitis Systemic rheumatoid vasculitis (HCC) Uveitis Past Surgical History: Procedure Laterality Date ARM SURGERY (HISTORICAL) Right 2013 broken CATARACT EXTRACTION Right COLPOSCOPY 2005 DILATION AND CURETTAGE OF UTERUS EYE SURGERY KNEE ARTHROSCOPY Left 07/2019 SKIN BIOPSY SKIN CANCER EXCISION 12/2019 TONSILLECTOMY AND ADENOIDECTOMY (HISTORICAL) 1952 TOTAL ABDOMINAL HYSTERECTOMY 02/28/2021 Bilateral salpingo oophorectomy, bilateral sentinel lymph node biopsy; Dr. Luis Nguyen @[facility]@ Allergies as of 03/07/2023 - Reviewed 03/07/2023 Allergen Reaction Noted Simvastatin 05/10/2010 Sulfa antibiotics 07/05/2005 Codeine 07/05/2005 REVIEW OF SYSTEMS: As per the HPI, otherwisenegative. Vitals: 03/07/23 0744 BP: (!) 157/74 Pulse: 73 Body mass index is 20.63 kg/m . Physical Exam Constitutional: Appearance: Normal appearance. HENT: Head: Normocephalic. Pulmonary: Effort: Pulmonary effort is normal. Abdominal: Palpations: Abdomen is soft. Comments: Well-healed Pfannenstiel incision Genitourinary: Comments: .Uterus, cervix, bilateral adnexa surgically absent. No lesions or nodularity of the vaginal cuff, posterior cul-de-sac or rectovaginal vault. Very atrophic vaginal mucosa Skin: General: Skin is warm and dry. Neurological: Mental Status: She is alert and oriented to person, place, and time. Psychiatric: Mood and Affect: Mood normal. Behavior: Behavior normal. ASSESSMENT/PLAN: 82 y.o. History of stage I B3 cervical cancer currently with no evidence of disease on exam. Also follows up with radiation oncology. Pap smear performed today will call with results. Follow-up in 6 months. Total visit time of 15 minutes much of a spent in counseling concerning the need for long-term follow-up, signs and symptoms of recurrent disease Plan: Follow-up every 4 months. Would recommend a Pap smear of vaginal cuff once a year. She will be due for Pap smear at her next office visit. documented in this encounter [facility] 10-16-2022 Note HNO ID: [id number] Author: Ritesh Jimenez, DO Service: ? Author Type: Physician Type: Progress Notes Filed: 10/16/2022 8:49 AM Note Text: Ritesh Jimenez DO [facility] General Orthopedics - Orthopedic Spine Surgeon [address] Suzanne Mackey, [facility] [address] [address] [place] [address] Phone: [phone] ([phone] FAX: [phone] SPINE SURGERY OUTPATIENT CONSULT SERVICE DATE: 10/03/2022 Last Office Visit: 09/04/2022 REFERRING PROVIDER: Rosita Lentz MD [address] [facility] Paolo [place]by [facility] [address] CHIEF COMPLAINT: Odontoid fracture HISTORY OF PRESENT ILLNESS India Rodriguez is a 82 year old female presenting with daughter. She is 4 months out from her Type II dens fracture. At her last office visit she reported she was doing great. Stated she is sleeping a recliner at this time and she was compliant with her c-collar. Denies weakness. Denies loss of bowel or bladder. Denies gait instability. Denies paresthesia. Denies dexterity issues. Recommendation was to discontinue use of the cervical collar at that time. Patient and daughter educated on the signs and symptoms of worsening myelopathy. She was asked to follow up in 6 weeks with repeat xray, prompting her visit today. Today, she states she feels great. She will wear her c-collar at times when she feels her neck is tired . She has no pain at this time. Denies weakness. Denies loss of bowel or bladder. Denies gait instability. She is here for image review, evaluation and plan of care. SYMPTOMS: none PREVIOUS CONSERVATIVE TREATMENTS: Cervical Collar Physical Therapy PREVIOUS SURGERY: None Smoker: Denies Diabetic: Denies Anticoagulants / Antiplatelets: ASA 81mg Occupation: Retired PAST MEDICAL HISTORY Diagnosis Date Abnormal Pap smear 05/10/2010 ASCUS, Positive HPV COVID Elevated cholesterol Essential hypertension, benign Genital herpes H/O fracture of arm 11/03/2011 right HPV (human papillomavirus) 09/05/2007, 07/16/2006, 07/02/2005 Lactose intolerance Migraine with aura Pneumonia 03/18/2015 Retinal vasculitis [facility] Systemic vasculitis (HCC) Uveitis PAST SURGICAL HISTORY Procedure Laterality Date CATARACT EXTRACTION HX Right 12/09/2018 CONIZATION CERVIX W/WO DANDC RPR ELTRD EXC August 13, 2005 LEEP-C[address] CT CHEST 01/04/2009 TONSILLECTOMY PRIMARY/SECONDARY Tonsillectomy US LIVER 09/12/2011 VAGINOSCOPY June 13, 2010 ASCUS Pap, Positive HPV FAMILY HISTORY Problem Relation Age of Onset Hypertension Mother other (Leukemia) Mother Hypertension Father Heart Father CHF Social History Tobacco Use Smoking status: Never Smokeless tobacco: Never Substance Use Topics Alcohol use: No Drug use: No ALLERGIES Allergen Reactions Codeine HEADACHE Ibuprofen Other: See Comments Severe headaches UPDATE; PATIENT INDICATED THAT SHE HAS TAKEN AND SHE NO LONGER HAS ALLERGY TO. Ramona Jackson Ma Lisinopril Cough Opioids - Morphine * Rash, Vomiting Simvastatin Severe Muscle Pain Sulfa (Sulfonamide * HEADACHE MEDICATIONS: acetaminophen (TYLENOL) 500 mg tablet Take 1,000 mg by mouth. calcium carbonate (CALTRATE) 600 mg calcium (1,500 mg) tab Take 600 mg by mouth. cholecalciferol (VITAMIN D3) 1,000 unit tab tablet Take by mouth. brimonidine (ALPHAGAN) 0.2 % ophthalmic solution loperamide HCl (IMODIUM ORAL) Take 1 tablet by mouth. Daily prn latanoprost (XALATAN) 0.005 % ophthalmic solution Use 1 Drop in both eyes daily at bedtime. 1 drop both eyes in am and 2 drops Brimonidine-Timolol 0.2-0.5 % Use 1 Drop in both eyes twice daily. amLODIPine (NORVASC) 2.5 mg tablet Take 1 tablet by mouth once daily. pantoprazole DR (PROTONIX) 20 mg tablet Take 1 tablet by mouth once daily. metoprolol succinate ER (TOPROL XL) 50 mg 24 hr tablet Take 1 tablet by mouth once daily. docusate sodium (COLACE) 100 mg capsule Take 1 capsule by mouth twice daily. methotrexate 2.5 mg tablet Take six tablets every Saturday. (Patient taking differently: 2 mg. Take six tablets every Saturday.) FOLIC ACID 1 MG TAB Take one(1) tablet daily. OTC NUTRITIONAL SUPPLEMENT Multi-vitamin Take one(1) tablet daily. CALCIUM 600 + D 600 MG-125 UNIT TAB Take by mouth once daily. VITAMIN C 500 MG TAB Take 500 mg by mouth once daily. amoxicillin (POLYMOX, AMOXIL) 500 mg capsule Take 4 capsules by mouth as directed. Take one hour prior to dental work (Patient not taking: Reported on 10/16/2022) aspirin, enteric coated (ASPIRIN, ENTERIC COATED) 325 mg EC tablet Take 1 tablet by mouth twice daily for 25 days. (Patient not taking: Reported on 10/16/2022) REVIEW OF SYSTEMS Review of Systems Constitutional: Negative for appetite change, chills and fever. HENT: Negative for ear discharge, tinnitus and trouble swallowing. Eyes: Negative for pain, redness and visual disturbance. Respiratory: Negative for cough, shortness of breath and wheez (more content not included)... [facility] 10-16-2022 Note HNO ID: [id number] Author: RT Olvin(R) Service: Radiology Author Type: Technologist Type: Progress Notes Filed: 10/16/2022 8:04 AM Note Text: Radiology Service Progress Note PATIENT NAME: India Rodriguez DATE OF SERVICE: October 16, 2022 TIME: 8:04 AM PATIENT IDENTITY VERIFICATION COMPLETED USING TWO (2) IDENTIFIERS: Name and Date of confirmed by patient verbally. FALL SCREENING: Has the patient had 2 falls in the last year or 1 fall with injury or currently using an Ambulatory Assistive Device (Walker, Cane, Wheelchair, Crutches, etc.)? No PATIENT GENDER DATA: Female. status: : No status: NO. PATIENT RELEVANT IMPLANT DATA REVIEWED: Not Applicable RADIOLOGY DEPARTMENT: General X-ray: Exam(s) Completed: Spine X-Ray(s): Cervical AP / LAT / FLEX-EXT flex ex only per order PERIPHERAL IV DATA: Not applicable SIGNED BY: RT Olvin(R) October 16, 2022 8:04 AM [facility] 10-16-2022 History of Presen t illness Narrative Images from the original note were not included. Ritesh Jimenez, [facility] Orthopedics - Orthopedic Spine Surgeon [address] [facility] [address], [facility] [address] [place] [id number] Phone: [phone] ([phone] FAX: [phone] SPINE SURGERY OUTPATIENT CONSULT SERVICE DATE: 10/03/2022 Last Office Visit: 09/04/2022 REFERRING PROVIDER: Rosita Lentz MD [address] [place], [place] [address]y Pa[place] A [facility] [address] CHIEF COMPLAINT: Odontoid fracture HISTORY OF PRESENT ILLNESS India Rodriguez is a 82 year old female presenting with daughter. She is 4 months out from her Type II dens fracture. At her last office visit she reported she was doing great. Stated she is sleeping a recliner at this time and she was compliant with her c-collar. Denies weakness. Denies loss of bowel or bladder. Denies gait instability. Denies paresthesia. Denies dexterity issues. Recommendation was to discontinue use of the cervical collar at that time. Patient and daughter educated on the signs and symptoms of worsening myelopathy. She was asked to follow up in 6 weeks with repeat xray, prompting her visit today. Today, she states she feels great. She will wear her c-collar at times when she feels her neck is tired . She has no pain at this time. Denies weakness. Denies loss of bowel or bladder. Denies gait instability. She is here for image review, evaluation and plan of care. SYMPTOMS: none PREVIOUS CONSERVATIVE TREATMENTS: Cervical Collar Physical Therapy PREVIOUS SURGERY: None Smoker: Denies Diabetic: Denies Anticoagulants / Antiplatelets: ASA 81mg Occupation: Retired PAST MEDICAL HISTORY Diagnosis Date Abnormal Pap smear 05/10/2010 ASCUS, Positive HPV COVID Elevated cholesterol Essential hypertension, benign Genital herpes H/O fracture of arm 11/03/2011 right HPV (human papillomavirus) 09/05/2007, 07/16/2006, 07/02/2005 Lactose intolerance Migraine with aura Pneumonia 03/18/2015 Retinal vasculitis [facility] Systemic vasculitis (HCC) Uveitis PAST SURGICAL HISTORY Procedure Laterality Date CATARACT EXTRACTION HX Right 12/09/2018 CONIZATION CERVIX W/WO D&C RPR ELTRD EXC August 13, 2005 LEEP-Cerv[address] CT CHEST 01/04/2009 TONSILLECTOMY PRIMARY/SECONDARY <AGE 13 Tonsillectomy US LIVER 09/12/2011 VAGINOSCOPY June 13, 2010 ASCUS Pap, Positive HPV FAMILY HISTORY Problem Relation Age of Onset Hypertension Mother other (Leukemia) Mother Hypertension Father Heart Father CHF Social History Tobacco Use Smoking status: Never Smokeless tobacco: Never Substance Use Topics Alcohol use: No Drug use: No ALLERGIES Allergen Reactions Codeine HEADACHE Ibuprofen Other: See Comments Severe headaches UPDATE; PATIENT INDICATED THAT SHE HAS TAKEN AND SHE NO LONGER HAS ALLERGY TO. Ramona Manuel Ma Lisinopril Cough Opioids - Morphine * Rash, Vomiting Simvastatin Severe Muscle Pain Sulfa (Sulfonamide * HEADACHE MEDICATIONS: acetaminophen (TYLENOL) 500 mg tablet Take 1,000 mg by mouth. calcium carbonate (CALTRATE) 600 mg calcium (1,500 mg) tab Take 600 mg by mouth. cholecalciferol (VITAMIN D3) 1,000 unit tab tablet Take by mouth. brimonidine (ALPHAGAN) 0.2 % ophthalmic solution loperamide HCl (IMODIUM ORAL) Take 1 tablet by mouth. Daily prn latanoprost (XALATAN) 0.005 % ophthalmic solution Use 1 Drop in both eyes daily at bedtime. 1 drop both eyes in am and 2 drops Brimonidine-Timolol 0.2-0.5 % Use 1 Drop in both eyes twice daily. amLODIPine (NORVASC) 2.5 mg tablet Take 1 tablet by mouth once daily. pantoprazole DR (PROTONIX) 20 mg tablet Take 1 tablet by mouth once daily. metoprolol succinate ER (TOPROL XL) 50 mg 24 hr tablet Take 1 tablet by mouth once daily. docusate sodium (COLACE) 100 mg capsule Take 1 capsule by mouth twice daily. methotrexate 2.5 mg tablet Take six tablets every Saturday. (Patient taking differently: 2 mg. Take six tablets every Saturday.) FOLIC ACID 1 MG TAB Take one(1) tablet daily. OTC NUTRITIONAL SUPPLEMENT Multi-vitamin Take one(1) tablet daily. CALCIUM 600 + D 600 MG-125 UNIT TAB Take by mouth once daily. VITAMIN C 500 MG TAB Take 500 mg by mouth once daily. amoxicillin (POLYMOX, AMOXIL) 500 mg capsule Take 4 capsules by mouth as directed. Take one hour prior to dental work (Patient not taking: Reported on 10/16/2022) aspirin, enteric coated (ASPIRIN, ENTERIC COATED) 325 mg EC tablet Take 1 tablet by mouth twice daily for 25 days. (Patient not taking: Reported on 10/16/2022) REVIEW OF SYSTEMS Review of Systems Constitutional: Negative for appetite change, chills and fever. HENT: Negative for ear discharge, tinnitus and trouble swallowing. Eyes: Negative for pain, redness and visual disturbance. Respiratory: Negative for cough, shortness of breath and wheezing. Cardiovascular: Negative for chest pain, palpitations and leg swelling. Gastrointestinal: Negative for diarrhea, nausea and vomiting. Endocrine: Negative for cold intolerance and heat intolerance. Genitourinary: Negative for difficulty urinating, frequency and urgency. Musculoskeletal: Negative for back pain, gait problem, neck pain and neck stiffness. Skin: Negative for color change, rash and wound. Allergic/Immunologic: Negative for environmental allergies and food allergies. Neurological: Negative for weakness, numbness and headaches. Hematological: Does not bruise/bleed easily. Psychiatric/Behavioral: Negative for agitation and confusion. The patient is not nervous/anxious. OBJECTIVE: BP 135/68 (BP Site: Right Arm, BP Position: Sitting, BP Cuff Size: Regular Adult) Pulse 67 Ht 165.1 cm (5' 5 ) Wt 56.8 kg (125 lb 3.5 oz) SpO2 98% BMI 20.84 kg/m PHYSICAL EXAM GENERAL APPEARANCE: Well nourished, well developed, and no apparent distress. NEURO PSYCH: Patient oriented to person, place, and time. Mood pleasant. Benign affect. CARDIOVASCULAR: Palpable pulses. No edema noted. No varicosities. SKIN: Head, neck, trunk, and extremities dry, intact and without lesions. LYMPHATICS: No palpable nodes in cervical or axillae areas. Groin exam deferred MUSCULOSKELETAL PALPATION: SPINOUS PROCESS: No pain. PARASPINALS: No pain. MUSCLE TONE and BULK: Symmetrical in the upper & lower extremities. MOTOR: Upper Extremity Left Right Deltoids 5/5 5/5 Biceps 5/5 5/5 Triceps 5/5 5/5 Tube Depatcher 5/5 5/5 Interossei 5/5 5/5 Lower Extremity Hip Flexors 5/5 5/5 Quadriceps 5/5 5/5 Dorsiflexion 5/5 5/5 EHL/EDC 5/5 5/5 Plantar Flexion 5/5 5/5 SENSORY: Sensation intact to light touch C5-T1, L1-S1 GAIT: Able to perform toe and heel walk. Able to perform tandem gait. LONG TRACT SIGNS: No clonus. No Hoffmanns. REFLEXES: symmetric non-brisk DATA REVIEW Xray Cervical Spine 2V FLEX/EXT on 10/16/2022 Flexion-extension view of the cervical spine displays stable alignment of C2 odontoid fracture unchanged since previous visit. 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 -I long discussion again today with the patient and her daughter. I reviewed all the symptoms of cervical myelopathy. Patient is aware that she is to avoid hyperextension of her neck. States that she will call the office if she develops any symptoms of myelopathy. Again we discussed operative intervention for C1-2 fracture patient is not interested in this. She will call the office if any new or worsening symptoms develop. The following portions of the patient's history were reviewed, confirmed, and updated as necessary: allergies, current medications, past family history, past medical history, past social history, past surgical history, problem list, HPI, and ROS obtained by others. Some elements may be copied from a previous office note and have been reviewed/updated where appropriate. All portions reflect current medical decision making from today. The clinical and radiographic findings as well as the risks, benefits and alternatives of treatment have been reviewed in detail with the patient. Advised to call the office if symptoms worsen or new symptoms develop. Patient expressed understanding and is in agreement with plan. Ritesh Jimenez DO documented in this encounter [facility] 10-16-2022 History of Presen t illness Narrative Radiology Service Progress Note PATIENT NAME: India Rodriguez DATE OF SERVICE: October 16, 2022 TIME: 8:04 AM PATIENT IDENTITY VERIFICATION COMPLETED USING TWO (2) IDENTIFIERS: Name and Date of confirmed by patient verbally. FALL SCREENING: Has the patient had 2 falls in the last year or 1 fall with injury or currently using an Ambulatory Assistive Device (Walker, Cane, Wheelchair, Crutches, etc.)? No PATIENT GENDER DATA: Female. status: : No status: NO. PATIENT RELEVANT IMPLANT DATA REVIEWED: Not Applicable RADIOLOGY DEPARTMENT: General X-ray: Exam(s) Completed: Spine X-Ray(s): Cervical AP / LAT / FLEX-EXT flex ex only per order PERIPHERAL IV DATA: Not applicable SIGNED BY: RT Olvin(R) October 16, 2022 8:04 AM documented in this encounter [facility] 09-04-2022 Note HNO ID: [id number] Author: Ritesh Jimenez DO Service: ? Author Type: Physician Type: Progress Notes Filed: 09/04/2022 11:14 AM Note Text: Ritesh Jimenez DO [facility] General Orthopedics - Orthopedic Spine Surgeon [address] Suzanne Mackey, [facility] [address] [address] [place] [address] Phone: [phone] ([phone] FAX: [phone] SPINE SURGERY OUTPATIENT CONSULT SERVICE DATE: 09/04/2022 Last Office Visit: 08/07/2022 REFERRING PROVIDER: Rosita Lentz MD [address] [facility] Pa[place] Willoughby [facility] [address] CHIEF COMPLAINT: Neck pain has resolved HISTORY OF PRESENT ILLNESS India Rodriguez is a 82 year old female presenting with daughter. She was 12 weeks status post Type II dens fracture with minimal 1 mm posterior displacement of the dens relative the vertebral body. At her last office visit she reported she was doing great. She not longer was using a wheeled walker. She was still in respite care but was hoping to be going home soon. She continue to wear her C-collar as prescribed. Recommendation was to follow-up in 2 weeks for repeat imaging, prompting her visit today. Today, she states she is doing great. States she is sleeping in a recliner at this time. States she has been wearing her c-collar as directed. Denies weakness. Denies loss of bowel or bladder. Denies gait instability. Denies paresthesia. Denies dexterity issues. She is here for image review, evaluation and plan of care. 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) Uveitis PAST SURGICAL HISTORY Procedure Laterality Date CATARACT EXTRACTION HX Right 12/09/2018 CONIZATION CERVIX W/WO DANDC RPR ELTRD EXC August 13, 2005 LEEP-[address] CHEST 01/04/2009 TONSILLECTOMY PRIMARY/SECONDARY Tonsillectomy US LIVER 09/12/2011 VAGINOSCOPY June 13, 2010 ASCUS Pap, Positive HPV FAMILY HISTORY Problem Relation Age of Onset Hypertension Mother other (Leukemia) Mother Hypertension Father Heart Father CHF Social History Tobacco Use Smoking status: Never Smokeless tobacco: Never Substance Use Topics Alcohol use: No Drug use: No ALLERGIES Allergen Reactions Codeine HEADACHE Ibuprofen Other: See Comments Severe headaches UPDATE; PATIENT INDICATED THAT SHE HAS TAKEN AND SHE NO LONGER HAS ALLERGY TO. Ramona Jackson Ma Lisinopril Cough Opioids - Morphine * Rash, Vomiting Simvastatin Severe Muscle Pain Sulfa (Sulfonamide * HEADACHE MEDICATIONS: brimonidine (ALPHAGAN) 0.2 % ophthalmic solution loperamide HCl (IMODIUM ORAL) Take 1 tablet by mouth. Daily prn latanoprost (XALATAN) 0.005 % ophthalmic solution Use 1 Drop in both eyes daily at bedtime. 1 drop both eyes in am and 2 drops Brimonidine-Timolol 0.2-0.5 % Use 1 Drop in both eyes twice daily. amLODIPine (NORVASC) 2.5 mg tablet Take 1 tablet by mouth once daily. amoxicillin (POLYMOX, AMOXIL) 500 mg capsule Take 4 capsules by mouth as directed. Take one hour prior to dental work pantoprazole DR (PROTONIX) 20 mg tablet Take 1 tablet by mouth once daily. metoprolol succinate ER (TOPROL XL) 50 mg 24 hr tablet Take 1 tablet by mouth once daily. docusate sodium (COLACE) 100 mg capsule Take 1 capsule by mouth twice daily. methotrexate 2.5 mg tablet Take six tablets every Saturday. (Patient taking differently: 2 mg. Take six tablets every Saturday.) FOLIC ACID 1 MG TAB Take one(1) tablet daily. OTC NUTRITIONAL SUPPLEMENT Multi-vitamin Take one(1) tablet daily. CALCIUM 600 + D 600 MG-125 UNIT TAB Take by mouth once daily. VITAMIN C 500 MG TAB Take 500 mg by mouth once daily. aspirin, enteric coated (ASPIRIN, ENTERIC COATED) 325 mg EC tablet Take 1 tablet by mouth twice daily for 25 days. REVIEW OF SYSTEMS Review of Systems Constitutional: Negative for appetite change, chills and fever. HENT: Negative for ear discharge, tinnitus and trouble swallowing. Eyes: Negative for pain, redness and visual disturbance. Respiratory: Negative for cough, shortness of breath and wheezing. Cardiovascular: Negative for chest pain, palpitations and leg swelling. Gastrointestinal: Negative for diarrhea, nausea and vomiting. Endocrine: Negative for cold intolerance and heat intolerance. Genitourinary: Negative for difficulty urinating, frequency and urgency. Musculoskeletal: Negative for back pain, gait problem, neck pain and neck stiffness. (more content not included)... [facility] 09-04-2022 History of Presen t illness Narrative Images from the original note were not included. Ritesh Jimenez DO [facility] Orthopedics - Orthopedic Spine Surgeon [address]key, [facility] [address] [address] [facility] [place] [address] Phone: [phone] FAX: [phone] SPINE SURGERY OUTPATIENT CONSULT SERVICE DATE: 09/04/2022 Last Office Visit: 08/07/2022 REFERRING PROVIDER: Rosita Lentz MD [address] [facility] [address] CHIEF COMPLAINT: Neck pain has resolved HISTORY OF PRESENT ILLNESS India Rodriguez is a 82 year old female presenting with daughter. She was 12 weeks status post Type II dens fracture with minimal 1 mm posterior displacement of the dens relative the vertebral body. At her last office visit she reported she was doing great. She not longer was using a wheeled walker. She was still in respite care but was hoping to be going home soon. She continue to wear her C-collar as prescribed. Recommendation was to follow-up in 2 weeks for repeat imaging, prompting her visit today. Today, she states she is doing great. States she is sleeping in a recliner at this time. States she has been wearing her c-collar as directed. Denies weakness. Denies loss of bowel or bladder. Denies gait instability. Denies paresthesia. Denies dexterity issues. She is here for image review, evaluation and plan of care. 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) Uveitis PAST SURGICAL HISTORY Procedure Laterality Date CATARACT EXTRACTION HX Right 12/09/2018 CONIZATION CERVIX W/WO D&C RPR ELTRD EXC August 13, 2005 LEEP-[address] CHEST 01/04/2009 TONSILLECTOMY PRIMARY/SECONDARY <AGE 13 Tonsillectomy US LIVER 09/12/2011 VAGINOSCOPY June 13, 2010 ASCUS Pap, Positive HPV FAMILY HISTORY Problem Relation Age of Onset Hypertension Mother other (Leukemia) Mother Hypertension Father Heart Father CHF Social History Tobacco Use Smoking status: Never Smokeless tobacco: Never Substance Use Topics Alcohol use: No Drug use: No ALLERGIES Allergen Reactions Codeine HEADACHE Ibuprofen Other: See Comments Severe headaches UPDATE; PATIENT INDICATED THAT SHE HAS TAKEN AND SHE NO LONGER HAS ALLERGY TO. Ramona Jackson Ma Lisinopril Cough Opioids - Morphine * Rash, Vomiting Simvastatin Severe Muscle Pain Sulfa (Sulfonamide * HEADACHE MEDICATIONS: brimonidine (ALPHAGAN) 0.2 % ophthalmic solution loperamide HCl (IMODIUM ORAL) Take 1 tablet by mouth. Daily prn latanoprost (XALATAN) 0.005 % ophthalmic solution Use 1 Drop in both eyes daily at bedtime. 1 drop both eyes in am and 2 drops Brimonidine-Timolol 0.2-0.5 % Use 1 Drop in both eyes twice daily. amLODIPine (NORVASC) 2.5 mg tablet Take 1 tablet by mouth once daily. amoxicillin (POLYMOX, AMOXIL) 500 mg capsule Take 4 capsules by mouth as directed. Take one hour prior to dental work pantoprazole DR (PROTONIX) 20 mg tablet Take 1 tablet by mouth once daily. metoprolol succinate ER (TOPROL XL) 50 mg 24 hr tablet Take 1 tablet by mouth once daily. docusate sodium (COLACE) 100 mg capsule Take 1 capsule by mouth twice daily. methotrexate 2.5 mg tablet Take six tablets every Saturday. (Patient taking differently: 2 mg. Take six tablets every Saturday.) FOLIC ACID 1 MG TAB Take one(1) tablet daily. OTC NUTRITIONAL SUPPLEMENT Multi-vitamin Take one(1) tablet daily. CALCIUM 600 + D 600 MG-125 UNIT TAB Take by mouth once daily. VITAMIN C 500 MG TAB Take 500 mg by mouth once daily. aspirin, enteric coated (ASPIRIN, ENTERIC COATED) 325 mg EC tablet Take 1 tablet by mouth twice daily for 25 days. REVIEW OF SYSTEMS Review of Systems Constitutional: Negative for appetite change, chills and fever. HENT: Negative for ear discharge, tinnitus and trouble swallowing. Eyes: Negative for pain, redness and visual disturbance. Respiratory: Negative for cough, shortness of breath and wheezing. Cardiovascular: Negative for chest pain, palpitations and leg swelling. Gastrointestinal: Negative for diarrhea, nausea and vomiting. Endocrine: Negative for cold intolerance and heat intolerance. Genitourinary: Negative for difficulty urinating, frequency and urgency. Musculoskeletal: Negative for back pain, gait problem, neck pain and neck stiffness. Skin: Negative for color change, rash and wound. Allergic/Immunologic: Negative for environmental allergies and food allergies. Neurological: Negative for weakness, numbness and headaches. Hematological: Does not bruise/bleed easily. Psychiatric/Behavioral: Negative for agitation and confusion. The patient is not nervous/anxious. OBJECTIVE: BP 136/72 (BP Site: Left Arm, BP Position: Sitting, BP Cuff Size: Large Adult) Pulse 68 Temp 36.1 C (97 F) (Temporal) Ht 165.1 cm (5' 5 ) Wt 52.2 kg (115 lb) SpO2 98% BMI 19.14 kg/m PHYSICAL EXAM GENERAL APPEARANCE: Well nourished, well developed, and no apparent distress. NEURO PSYCH: Patient oriented to person, place, and time. Mood pleasant. Benign affect. CARDIOVASCULAR: Palpable pulses. No edema noted. No varicosities. SKIN: Head, neck, trunk, and extremities dry, intact and without lesions. LYMPHATICS: No palpable nodes in cervical or axillae areas. Groin exam deferred MUSCULOSKELETAL PALPATION: SPINOUS PROCESS: No pain. PARASPINALS: No pain. MUSCLE TONE and BULK: Symmetrical in the upper & lower extremities. MOTOR: Upper Extremity Left Right Deltoids 5/5 5/5 Biceps 5/5 5/5 Triceps 5/5 5/5 Tube Depatcher 5/5 5/5 Interossei 5/5 5/5 Lower Extremity Hip Flexors 5/5 5/5 Quadriceps 5/5 5/5 Dorsiflexion 5/5 5/5 EHL/EDC 5/5 5/5 Plantar Flexion 5/5 5/5 SENSORY: Sensation intact to light touch C5-T1, L1-S1 GAIT: Able to perform toe and heel walk. Able to perform tandem gait. LONG TRACT SIGNS: No clonus. No Hoffmanns. REFLEXES: symmetric non-brisk DATA REVIEW Xray Cervical Spine on 09/04/2022 AP lateral flexion-extension views of the cervical spine display no movement of the C2 dens fragment. ASSESSMENT/PLAN India Rodriguez is an 82-year-old female with a type II odontoid fracture. -I had a long discussion today with the patient and her daughter. I reviewed the imaging with my partner. It does not appear that her fracture moves through flexion and extension. 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 I discussed possible operative intervention again with the patient and her daughter and they do not want surgery of any kind. Since she has a fibrous union at the site she was taken out of the collar today. I will see the patient back in 6 weeks for repeat x-rays to make sure nothing is moved. Patient and daughter were educated on signs and symptoms of worsening myelopathy. Advised the patient that if any of these symptoms develop to go back into the collar and give me a phone call immediately or head to the emergency department. The following portions of the patient's history were reviewed, confirmed, and updated as necessary: allergies, current medications, past family history, past medical history, past social history, past surgical history, problem list, HPI, and ROS obtained by others. Some elements may be copied from a previous office note and have been reviewed/updated where appropriate. All portions reflect current medical decision making from today. The clinical and radiographic findings as well as the risks, benefits and alternatives of treatment have been reviewed in detail with the patient. Advised to call the office if symptoms worsen or new symptoms develop. Patient expressed understanding and is in agreement with plan. Ritesh Jimenez DO documented in this encounter [facility] 08-30-2022 Miscellaneous Notes Patients daughter called asking about results of last xray, pt appointment was cancelled and they were never informed about the results. Patient was called per Dr Jimenez with results but there was no answer. Informed the daughter that she would need to get x-rays prior to her appointment next week. Per Dr. Jimenez last imaging looked good. She was thankful for the return call. All questions answered. Rolanda Berg RN documented in this encounter [facility] 08-21-2022 Note HNO ID: [id number] Author: RT Elgin(R) Service: ? Author Type: Trauma Program Manager Type: Progress Notes Filed: 08/21/2022 12:29 PM Note Text: Radiology Service Progress Note PATIENT NAME: India Rodriguez DATE OF SERVICE: August 21, 2022 TIME: 12:09 PM PATIENT IDENTITY VERIFICATION COMPLETED USING TWO (2) IDENTIFIERS: Name and Date of confirmed by patient verbally. FALL SCREENING: Has the patient had 2 falls in the last year or 1 fall with injury or currently using an Ambulatory Assistive Device (Walker, Cane, Wheelchair, Crutches, etc.)? No PATIENT GENDER DATA: Female. status: : No status: NO. PATIENT RELEVANT IMPLANT DATA REVIEWED: Yes RADIOLOGY DEPARTMENT: General X-ray: Exam(s) Completed: Spine X-Ray(s): Cervical AP / LAT PERIPHERAL IV DATA: Not applicable SIGNED BY: RT Elgin(R) August 21, 2022 12:[address] [facility] 08-07-2022 Note HNO ID: [id number] Author: Ritesh Jimenez DO Service: ? Author Type: Physician Type: Progress Notes Filed: 08/07/2022 8:29 AM Note Text: Ritesh Jimenez, DO [facility] - Orthopedic Spine Surgeon [address], [facility] [address] [address] [place] [address] Phone: [phone] ([phone] FAX: [phone] SPINE SURGERY OUTPATIENT CONSULT SERVICE DATE: 08/07/2022 Last Office Visit: 07/24/2022 REFERRING PROVIDER: Rosita Lentz MD [address] [facility] [place] [address] CHIEF COMPLAINT: C2 odontoid fracture HISTORY OF PRESENT ILLNESS India Rodriguez is a 81 year old female presenting with daughter. She was status post Type II dens fracture with minimal 1 mm posterior displacement of the dens relative the vertebral body. At her last office visit she stated she was doing great. Stated she had warn her C-collar as instructed. Continued to use wheeled walker. Stated she had use less tylenol. Recommendation was to continue to wear the C-collar at all times. She was to avoid hyperflexion and extension of her neck, as well as no bending, lifting, or twisting. She was to follow up in 2 weeks with xray's, prompting her visit today. Today, she states she is doing great. She is no longer using a wheeled walker. States she is still in respite care but hopes to be going home soon. Denies any loss of bowel or bladder. Denies weakness. Denies gait instability. Denies numbness or tingling. She is here for image review, evaluation and plan of care. 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) Uveitis PAST SURGICAL HISTORY Procedure Laterality Date CATARACT EXTRACTION HX Right 12/09/2018 CONIZATION CERVIX W/WO DANDC RPR ELTRD EXC August 13, 2005 LEEP-[address] CHEST 01/04/2009 TONSILLECTOMY PRIMARY/SECONDARY Tonsillectomy US LIVER 09/12/2011 VAGINOSCOPY June 13, 2010 ASCUS Pap, Positive HPV FAMILY HISTORY Problem Relation Age of Onset Hypertension Mother other (Leukemia) Mother Hypertension Father Heart Father CHF Social History Tobacco Use Smoking status: Never Smokeless tobacco: Never Substance Use Topics Alcohol use: No Drug use: No ALLERGIES Allergen Reactions Codeine HEADACHE Ibuprofen Other: See Comments Severe headaches UPDATE; PATIENT INDICATED THAT SHE HAS TAKEN AND SHE NO LONGER HAS ALLERGY TO. Ramona Jackson Ma Lisinopril Cough Simvastatin Severe Muscle Pain Sulfa (Sulfonamide * HEADACHE MEDICATIONS: loperamide HCl (IMODIUM ORAL) Take 1 tablet by mouth. Daily prn latanoprost (XALATAN) 0.005 % ophthalmic solution Use 1 Drop in both eyes daily at bedtime. 1 drop both eyes in am and 2 drops Brimonidine-Timolol 0.2-0.5 % Use 1 Drop in both eyes twice daily. amLODIPine (NORVASC) 2.5 mg tablet Take 1 tablet by mouth once daily. metoprolol succinate ER (TOPROL XL) 50 mg 24 hr tablet Take 1 tablet by mouth once daily. docusate sodium (COLACE) 100 mg capsule Take 1 capsule by mouth twice daily. methotrexate 2.5 mg tablet Take six tablets every Saturday. (Patient taking differently: 2 mg. Take six tablets every Saturday.) FOLIC ACID 1 MG TAB Take one(1) tablet daily. OTC NUTRITIONAL SUPPLEMENT Multi-vitamin Take one(1) tablet daily. VITAMIN C 500 MG TAB Take 500 mg by mouth once daily. amoxicillin (POLYMOX, AMOXIL) 500 mg capsule Take 4 capsules by mouth as directed. Take one hour prior to dental work pantoprazole DR (PROTONIX) 20 mg tablet Take 1 tablet by mouth once daily. aspirin, enteric coated (ASPIRIN, ENTERIC COATED) 325 mg EC tablet Take 1 tablet by mouth twice daily for 25 days. CALCIUM 600 + D 600 MG-125 UNIT TAB Take by mouth once daily. REVIEW OF SYSTEMS Review of Systems Constitutional: Negative for appetite change, chills and fever. HENT: Negative for ear discharge, tinnitus and trouble swallowing. Eyes: Negative for pain, redness and visual disturbance. Respiratory: Negative for cough, shortness of breath and wheezing. Cardiovascular: Negative for chest pain, palpitations and leg swelling. Gastrointestinal: Negative for diarrhea, nausea and vomiting. Endocrine: Negative for cold intolerance and heat intolerance. Genitourinary: Negative for difficulty urinating, frequency and urgency. Musculoskeletal: Negative for back pain, gait problem, neck pain and neck stiffness. (more content not included)... [facility] 08-07-2022 Note HNO ID: [id number] Author: RT Olvin(R) Service: Radiology Author Type: Technologist Type: Progress Notes Filed: 08/07/2022 7:52 AM Note Text: Radiology Service Progress Note PATIENT NAME: India Rodriguez DATE OF SERVICE: August 07, 2022 TIME: 7:51 AMName and Date of confirmed by patient verbally PATIENT IDENTITY VERIFICATION COMPLETED USING TWO (2) IDENTIFIERS: Name and Date of confirmed by patient verbally. FALL SCREENING: Has the patient had 2 falls in the last year or 1 fall with injury or currently using an Ambulatory Assistive Device (Walker, Cane, Wheelchair, Crutches, etc.)? No PATIENT GENDER DATA: Female. status: : No status: NO. PATIENT RELEVANT IMPLANT DATA REVIEWED: Not Applicable RADIOLOGY DEPARTMENT: General X-ray: Exam(s) Completed: Spine X-Ray(s): Cervical AP / LAT PERIPHERAL IV DATA: Not applicable SIGNED BY: RT Olvin(R) August 07, 2022 7:51 AM [facility] 08-07-2022 History of Presen t illness Narrative Images from the original note were not included. Ritesh Jimenez, [facility] Orthopedics - Orthopedic Spine Surgeon [address] [facility] [address], [place] [id number] [place] [address] Phone: [phone] FAX: [phone] SPINE SURGERY OUTPATIENT CONSULT SERVICE DATE: 08/07/2022 Last Office Visit: 07/24/2022 REFERRING PROVIDER: Rosita Lentz MD [address] [facility] [address] CHIEF COMPLAINT: C2 odontoid fracture HISTORY OF PRESENT ILLNESS India Rodriguez is a 81 year old female presenting with daughter. She was status post Type II dens fracture with minimal 1 mm posterior displacement of the dens relative the vertebral body. At her last office visit she stated she was doing great. Stated she had warn her C-collar as instructed. Continued to use wheeled walker. Stated she had use less tylenol. Recommendation was to continue to wear the C-collar at all times. She was to avoid hyperflexion and extension of her neck, as well as no bending, lifting, or twisting. She was to follow up in 2 weeks with xray's, prompting her visit today. Today, she states she is doing great. She is no longer using a wheeled walker. States she is still in respite care but hopes to be going home soon. Denies any loss of bowel or bladder. Denies weakness. Denies gait instability. Denies numbness or tingling. She is here for image review, evaluation and plan of care. 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) Uveitis PAST SURGICAL HISTORY Procedure Laterality Date CATARACT EXTRACTION HX Right 12/09/2018 CONIZATION CERVIX W/WO D&C RPR ELTRD EXC August 13, 2005 LEEP-[address] CHEST 01/04/2009 TONSILLECTOMY PRIMARY/SECONDARY <AGE 13 Tonsillectomy US LIVER 09/12/2011 VAGINOSCOPY June 13, 2010 ASCUS Pap, Positive HPV FAMILY HISTORY Problem Relation Age of Onset Hypertension Mother other (Leukemia) Mother Hypertension Father Heart Father CHF Social History Tobacco Use Smoking status: Never Smokeless tobacco: Never Substance Use Topics Alcohol use: No Drug use: No ALLERGIES Allergen Reactions Codeine HEADACHE Ibuprofen Other: See Comments Severe headaches UPDATE; PATIENT INDICATED THAT SHE HAS TAKEN AND SHE NO LONGER HAS ALLERGY TO. Ramona Jackson Ma Lisinopril Cough Simvastatin Severe Muscle Pain Sulfa (Sulfonamide * HEADACHE MEDICATIONS: loperamide HCl (IMODIUM ORAL) Take 1 tablet by mouth. Daily prn latanoprost (XALATAN) 0.005 % ophthalmic solution Use 1 Drop in both eyes daily at bedtime. 1 drop both eyes in am and 2 drops Brimonidine-Timolol 0.2-0.5 % Use 1 Drop in both eyes twice daily. amLODIPine (NORVASC) 2.5 mg tablet Take 1 tablet by mouth once daily. metoprolol succinate ER (TOPROL XL) 50 mg 24 hr tablet Take 1 tablet by mouth once daily. docusate sodium (COLACE) 100 mg capsule Take 1 capsule by mouth twice daily. methotrexate 2.5 mg tablet Take six tablets every Saturday. (Patient taking differently: 2 mg. Take six tablets every Saturday.) FOLIC ACID 1 MG TAB Take one(1) tablet daily. OTC NUTRITIONAL SUPPLEMENT Multi-vitamin Take one(1) tablet daily. VITAMIN C 500 MG TAB Take 500 mg by mouth once daily. amoxicillin (POLYMOX, AMOXIL) 500 mg capsule Take 4 capsules by mouth as directed. Take one hour prior to dental work pantoprazole DR (PROTONIX) 20 mg tablet Take 1 tablet by mouth once daily. aspirin, enteric coated (ASPIRIN, ENTERIC COATED) 325 mg EC tablet Take 1 tablet by mouth twice daily for 25 days. CALCIUM 600 + D 600 MG-125 UNIT TAB Take by mouth once daily. REVIEW OF SYSTEMS Review of Systems Constitutional: Negative for appetite change, chills and fever. HENT: Negative for ear discharge, tinnitus and trouble swallowing. Eyes: Negative for pain, redness and visual disturbance. Respiratory: Negative for cough, shortness of breath and wheezing. Cardiovascular: Negative for chest pain, palpitations and leg swelling. Gastrointestinal: Negative for diarrhea, nausea and vomiting. Endocrine: Negative for cold intolerance and heat intolerance. Genitourinary: Negative for difficulty urinating, frequency and urgency. Musculoskeletal: Negative for back pain, gait problem, neck pain and neck stiffness. Skin: Negative for color change, rash and wound. Allergic/Immunologic: Negative for environmental allergies and food allergies. Neurological: Negative for weakness, numbness and headaches. Hematological: Does not bruise/bleed easily. Psychiatric/Behavioral: Negative for agitation and confusion. The patient is not nervous/anxious. OBJECTIVE: BP 128/78 (BP Site: Left Arm, BP Position: Sitting, BP Cuff Size: Regular Adult) Pulse 78 Ht 165.1 cm (5' 5 ) Wt 52.6 kg (115 lb 15.4 oz) SpO2 98% BMI 19.30 kg/m PHYSICAL EXAM GENERAL APPEARANCE: Well nourished, well developed, and no apparent distress. NEURO PSYCH: Patient oriented to person, place, and time. Mood pleasant. Benign affect. CARDIOVASCULAR: Palpable pulses. No edema noted. No varicosities. SKIN: Head, neck, trunk, and extremities dry, intact and without lesions. LYMPHATICS: No palpable nodes in cervical or axillae areas. Groin exam deferred MUSCULOSKELETAL PALPATION: SPINOUS PROCESS: No pain. PARASPINALS: No pain. MUSCLE TONE and BULK: Symmetrical in the upper & lower extremities. MOTOR: Upper Extremity Left Right Deltoids 5/5 5/5 Biceps 5/5 5/5 Triceps 5/5 5/5 Tube Depatcher 5/5 5/5 Interossei 5/5 5/5 Lower Extremity Hip Flexors 5/5 5/5 Quadriceps 5/5 5/5 Dorsiflexion 5/5 5/5 EHL/EDC 5/5 5/5 Plantar Flexion 5/5 5/5 SENSORY: Sensation intact to light touch C5-T1, L1-S1 GAIT: Able to perform toe and heel walk. Able to perform tandem gait. LONG TRACT SIGNS: No clonus. No Hoffmanns. REFLEXES: symmetric non-brisk DATA REVIEW Xray 2V cervical spine on 08/07/2022 AP lateral view of the cervical spine displays a C2 odontoid fracture that is unchanged compared to previous x-ray. ASSESSMENT/PLAN India Rodriguez is an 82-year-old female with a C2 odontoid fracture. -Long discussion today with the patient and her daughter. I again offered operative intervention for the C2 fracture. She does not have any neurologic deficits of any kind. They would like to continue to proceed with nonoperative care and treatment with a cervical collar. Answered all the patient's and daughter's questions about restrictions, showering, getting in and out of bed. She is to wear the collar at all times. She is to avoid hyperextension and hyperflexion of the neck for risk of displacing the fracture fragment. Continue to recommend no bending lifting twisting. Today's x-rays look like the fracture fragment has not moved compared to previous films. We will see the patient back every 2 weeks to make sure the fracture does not displace. The following portions of the patient's history were reviewed, confirmed, and updated as necessary: allergies, current medications, past family history, past medical history, past social history, past surgical history, problem list, HPI, and ROS obtained by others. Some elements may be copied from a previous office note and have been reviewed/updated where appropriate. All portions reflect current medical decision making from today. The clinical and radiographic findings as well as the risks, benefits and alternatives of treatment have been reviewed in detail with the patient. Advised to call the office if symptoms worsen or new symptoms develop. Patient expressed understanding and is in agreement with plan. Ritesh Jimenez DO documented in this encounter [facility] 08-07-2022 History of Presen t illness Narrative Radiology Service Progress Note PATIENT NAME: India Rodriguez DATE OF SERVICE: August 07, 2022 TIME: 7:51 AMName and Date of confirmed by patient verbally PATIENT IDENTITY VERIFICATION COMPLETED USING TWO (2) IDENTIFIERS: Name and Date of confirmed by patient verbally. FALL SCREENING: Has the patient had 2 falls in the last year or 1 fall with injury or currently using an Ambulatory Assistive Device (Walker, Cane, Wheelchair, Crutches, etc.)? No PATIENT GENDER DATA: Female. status: : No status: NO. PATIENT RELEVANT IMPLANT DATA REVIEWED: Not Applicable RADIOLOGY DEPARTMENT: General X-ray: Exam(s) Completed: Spine X-Ray(s): Cervical AP / LAT PERIPHERAL IV DATA: Not applicable SIGNED BY: RT Olvin(R) August 07, 2022 7:51 AM documented in this encounter [facility] 07-24-2022 Note HNO ID: [id number] Author: Ritesh Jimenez DO Service: ? Author Type: Physician Type: Progress Notes Filed: 07/24/2022 9:44 AM Note Text: Rites[facility] DO [facility] [address], [facility] [id number] [place] [address] Phone: [phone] FAX: [phone] SPINE SURGERY OUTPATIENT CONSULT SERVICE DATE: 07/10/2022 Last Office Visit: 06/26/2022 REFERRING PROVIDER: Rosita Lentz MD [address] [place] [address] CHIEF COMPLAINT: C2 odontoid fracture HISTORY OF PRESENT ILLNESS India Rodriguez is a 81 year old female presenting with daughter. At her last office visit stated she was doing great. She was able to obtain her custom fit cervical collar and has been wearing it at all time. States she has had to adjust it at times. Recommendation was to follow-up in 2 weeks with repeat x-rays, prompting her visit today. Today, she states she is doing great. States she has warn her cervical collar as instructed. Continues to use wheeled walker. States she has used less tylenol. Denies loss of bowel or bladder. Denies weakness. Denies numbness or tingling. She is here for image review, evaluation and plan of care. 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) Uveitis PAST SURGICAL HISTORY Procedure Laterality Date CATARACT EXTRACTION HX Right 12/09/2018 CONIZATION CERVIX W/WO DANDC RPR ELTRD EXC August 13, 2005 LEEP-C[address] CHEST 01/04/2009 TONSILLECTOMY PRIMARY/SECONDARY Tonsillectomy US LIVER 09/12/2011 VAGINOSCOPY June 13, 2010 ASCUS Pap, Positive HPV FAMILY HISTORY Problem Relation Age of Onset Hypertension Mother other (Leukemia) Mother Hypertension Father Heart Father CHF Social History Tobacco Use Smoking status: Never Smokeless tobacco: Never Substance Use Topics Alcohol use: No Drug use: No ALLERGIES Allergen Reactions Codeine HEADACHE Ibuprofen Other: See Comments Severe headaches UPDATE; PATIENT INDICATED THAT SHE HAS TAKEN AND SHE NO LONGER HAS ALLERGY TO. Ramona Jackson Ma Lisinopril Cough Simvastatin Severe Muscle Pain Sulfa (Sulfonamide * HEADACHE MEDICATIONS: loperamide HCl (IMODIUM ORAL) Take 1 tablet by mouth. Daily prn latanoprost (XALATAN) 0.005 % ophthalmic solution Use 1 Drop in both eyes daily at bedtime. 1 drop both eyes in am and 2 drops Brimonidine-Timolol 0.2-0.5 % Use 1 Drop in both eyes twice daily. amLODIPine (NORVASC) 2.5 mg tablet Take 1 tablet by mouth once daily. pantoprazole DR (PROTONIX) 20 mg tablet Take 1 tablet by mouth once daily. metoprolol succinate ER (TOPROL XL) 50 mg 24 hr tablet Take 1 tablet by mouth once daily. docusate sodium (COLACE) 100 mg capsule Take 1 capsule by mouth twice daily. methotrexate 2.5 mg tablet Take six tablets every Saturday. (Patient taking differently: 2 mg. Take six tablets every Saturday.) FOLIC ACID 1 MG TAB Take one(1) tablet daily. CALCIUM 600 + D 600 MG-125 UNIT TAB Take by mouth once daily. VITAMIN C 500 MG TAB Take 500 mg by mouth once daily. amoxicillin (POLYMOX, AMOXIL) 500 mg capsule Take 4 capsules by mouth as directed. Take one hour prior to dental work aspirin, enteric coated (ASPIRIN, ENTERIC COATED) 325 mg EC tablet Take 1 tablet by mouth twice daily for 25 days. OTC NUTRITIONAL SUPPLEMENT Multi-vitamin Take one(1) tablet daily. REVIEW OF SYSTEMS Review of Systems OBJECTIVE: BP 140/69 (BP Site: Left Arm, BP Position: Sitting, BP Cuff Size: Small Adult) Pulse 60 Temp 36.2 ?C (97.2 ?F) (Temporal) Ht 165.1 cm (5' 5 ) Wt 52.6 kg (116 lb) SpO2 96% BMI 19.30 kg/m? PHYSICAL EXAM GENERAL APPEARANCE: Well nourished, well developed, and no apparent distress. NEURO PSYCH: Patient oriented to person, place, and time. Mood pleasant. Benign affect. CARDIOVASCULAR: Palpable pulses. No edema noted. No varicosities. SKIN: Head, neck, trunk, and extremities dry, intact and without lesions. LYMPHATICS: No palpable nodes in cervical or axillae areas. Groin exam deferred MUSCULOSKELETAL PALPATION: SPINOUS PROCESS: No pain. PARASPINALS: No pain. MUSCLE TONE and BULK: Symmetrical in the upper AND lower extremities. MOTOR: Upper Extremity Left Right Deltoids 5/5 5/5 Biceps 5/5 5/5 Triceps 5/5 5/5 Tube Depatcher 5/5 5/5 Interossei 5/ (more content not included)... [facility] 07-24-2022 History of Presen t illness Narrative Images from the original note were not included. Ritesh Jimenez DO [facility] Orthopedics - Orthopedic Spine Surgeon [address] [place] [address] [address] [facility] [place] [address] Phone: [phone] ([phone] FAX: [phone] SPINE SURGERY OUTPATIENT CONSULT SERVICE DATE: 07/10/2022 Last Office Visit: 06/26/2022 REFERRING PROVIDER: Rosita Lentz MD [address] [place] [facility] [address] CHIEF COMPLAINT: C2 odontoid fracture HISTORY OF PRESENT ILLNESS India Rodriguez is a 81 year old female presenting with daughter. At her last office visit stated she was doing great. She was able to obtain her custom fit cervical collar and has been wearing it at all time. States she has had to adjust it at times. Recommendation was to follow-up in 2 weeks with repeat x-rays, prompting her visit today. Today, she states she is doing great. States she has warn her cervical collar as instructed. Continues to use wheeled walker. States she has used less tylenol. Denies loss of bowel or bladder. Denies weakness. Denies numbness or tingling. She is here for image review, evaluation and plan of care. 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) Uveitis PAST SURGICAL HISTORY Procedure Laterality Date CATARACT EXTRACTION HX Right 12/09/2018 CONIZATION CERVIX W/WO D&C RPR ELTRD EXC August 13, 2005 LEEP-[address] CHEST 01/04/2009 TONSILLECTOMY PRIMARY/SECONDARY <AGE 13 Tonsillectomy US LIVER 09/12/2011 VAGINOSCOPY June 13, 2010 ASCUS Pap, Positive HPV FAMILY HISTORY Problem Relation Age of Onset Hypertension Mother other (Leukemia) Mother Hypertension Father Heart Father CHF Social History Tobacco Use Smoking status: Never Smokeless tobacco: Never Substance Use Topics Alcohol use: No Drug use: No ALLERGIES Allergen Reactions Codeine HEADACHE Ibuprofen Other: See Comments Severe headaches UPDATE; PATIENT INDICATED THAT SHE HAS TAKEN AND SHE NO LONGER HAS ALLERGY TO. Ramona Jackson Ma Lisinopril Cough Simvastatin Severe Muscle Pain Sulfa (Sulfonamide * HEADACHE MEDICATIONS: loperamide HCl (IMODIUM ORAL) Take 1 tablet by mouth. Daily prn latanoprost (XALATAN) 0.005 % ophthalmic solution Use 1 Drop in both eyes daily at bedtime. 1 drop both eyes in am and 2 drops Brimonidine-Timolol 0.2-0.5 % Use 1 Drop in both eyes twice daily. amLODIPine (NORVASC) 2.5 mg tablet Take 1 tablet by mouth once daily. pantoprazole DR (PROTONIX) 20 mg tablet Take 1 tablet by mouth once daily. metoprolol succinate ER (TOPROL XL) 50 mg 24 hr tablet Take 1 tablet by mouth once daily. docusate sodium (COLACE) 100 mg capsule Take 1 capsule by mouth twice daily. methotrexate 2.5 mg tablet Take six tablets every Saturday. (Patient taking differently: 2 mg. Take six tablets every Saturday.) FOLIC ACID 1 MG TAB Take one(1) tablet daily. CALCIUM 600 + D 600 MG-125 UNIT TAB Take by mouth once daily. VITAMIN C 500 MG TAB Take 500 mg by mouth once daily. amoxicillin (POLYMOX, AMOXIL) 500 mg capsule Take 4 capsules by mouth as directed. Take one hour prior to dental work aspirin, enteric coated (ASPIRIN, ENTERIC COATED) 325 mg EC tablet Take 1 tablet by mouth twice daily for 25 days. OTC NUTRITIONAL SUPPLEMENT Multi-vitamin Take one(1) tablet daily. REVIEW OF SYSTEMS Review of Systems OBJECTIVE: BP 140/69 (BP Site: Left Arm, BP Position: Sitting, BP Cuff Size: Small Adult) Pulse 60 Temp 36.2 C (97.2 F) (Temporal) Ht 165.1 cm (5' 5 ) Wt 52.6 kg (116 lb) SpO2 96% BMI 19.30 kg/m PHYSICAL EXAM GENERAL APPEARANCE: Well nourished, well developed, and no apparent distress. NEURO PSYCH: Patient oriented to person, place, and time. Mood pleasant. Benign affect. CARDIOVASCULAR: Palpable pulses. No edema noted. No varicosities. SKIN: Head, neck, trunk, and extremities dry, intact and without lesions. LYMPHATICS: No palpable nodes in cervical or axillae areas. Groin exam deferred MUSCULOSKELETAL PALPATION: SPINOUS PROCESS: No pain. PARASPINALS: No pain. MUSCLE TONE and BULK: Symmetrical in the upper & lower extremities. MOTOR: Upper Extremity Left Right Deltoids 5/5 5/5 Biceps 5/5 5/5 Triceps 5/5 5/5 Tube Depatcher 5/5 5/5 Interossei 5/5 5/5 Lower Extremity Hip Flexors 5/5 5/5 Quadriceps 5/5 5/5 Dorsiflexion 5/5 5/5 EHL/EDC 5/5 5/5 Plantar Flexion 5/5 5/5 SENSORY: Sensation intact to light touch C5-T1, L1-S1 GAIT: Able to perform toe and heel walk. Able to perform tandem gait. LONG TRACT SIGNS: No clonus. No Hoffmanns. REFLEXES: symmetric non-brisk DATA REVIEW Xray Cervical Spine 2V AP/LAT on 07/24/2022 AP lateral view the cervical spine displays a displaced C2 odontoid fracture unchanged since previous exam ASSESSMENT/PLAN India Rodriguez is an 81-year-old female with a C2 odontoid fracture -I long talk today with the patient and her daughter. I again offered operative intervention. She does not have any neurologic deficits of any kind. They would like to continue to proceed with nonoperative care and treatment with a cervical collar. I answered all the patient's and daughter's questions about mobility, restrictions, showering. She is to wear the collar at all times. She is to avoid hyperflexion and extension of her neck with risk of displacing the fracture fragment. Recommended no bending lifting twisting. Today's x-rays show the fracture is in stable alignment compared to last time. I will see the patient back every 2 weeks to make sure the fracture does not displace. The following portions of the patient's history were reviewed, confirmed, and updated as necessary: allergies, current medications, past family history, past medical history, past social history, past surgical history, problem list, HPI, and ROS obtained by others. Some elements may be copied from a previous office note and have been reviewed/updated where appropriate. All portions reflect current medical decision making from today. The clinical and radiographic findings as well as the risks, benefits and alternatives of treatment have been reviewed in detail with the patient. Advised to call the office if symptoms worsen or new symptoms develop. Patient expressed understanding and is in agreement with plan. Ritesh Jimenze DO documented in this encounter [facility] 07-18-2022 Miscellaneous Notes Called and informed Tito, patients daughter, they are OK to come in on the , for Dr. Jimenez. Stephanie Nevarez documented in this encounter [facility] 07-10-2022 Note HNO ID: [id number] Author: Ritesh Jimenez DO Service: ? Author Type: Physician Type: Progress Notes Filed: 07/10/2022 10:10 AM Note Text: Ritesh Jimenez DO [facility] Orthopedics - Orthopedic Spine Surgeon [address] [facility] [address] [address] [place] [address] Phone: [phone] FAX: [phone] SPINE SURGERY OUTPATIENT CONSULT SERVICE DATE: 07/09/2022 Last Office Visit: 06/26/2022 REFERRING PROVIDER: Ritesh Jimenez [address] [facility] [address] CHIEF COMPLAINT: C2 odontoid fracture HISTORY OF PRESENT ILLNESS India Rodriguez is a 81 year old female presenting with daughter. She was status post Type II dens fracture with minimal 1 mm posterior displacement of the dens relative the vertebral body. At her last visit she stated she was doing great. Stated she had some discomfort in her upper back but takes tylenol for relief. Stated she was using a wheeled walker for additional support with ambulation. Stated she had been compliant with her c-collar. Recommendation was to consult [employer] for a cunstom fit cervical collar, operative intervention was spoke about, patient refused at that time. She was asked to continue to wear the cervical collar at all times and follow-up in 2 weeks with repeat x-rays. Today, she states she got her custom c-collar 2 days after office visit. States she has not removed it since it was placed on her by [employer]. States she has had to adjust at time. She denies any numbness or tingling. Denies loss of bowel or bladder. Denies gait instability. Denies weakness. She is here for image review, evaluation and plan of care. 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) Uveitis PAST SURGICAL HISTORY Procedure Laterality Date CATARACT EXTRACTION HX Right 12/09/2018 CONIZATION CERVIX W/WO DANDC RPR ELTRD EXC August 13, 2005 LEEP-C[address] CHEST 01/04/2009 TONSILLECTOMY PRIMARY/SECONDARY Tonsillectomy US LIVER 09/12/2011 VAGINOSCOPY June 13, 2010 ASCUS Pap, Positive HPV FAMILY HISTORY Problem Relation Age of Onset Hypertension Mother other (Leukemia) Mother Hypertension Father Heart Father CHF Social History Tobacco Use Smoking status: Never Smokeless tobacco: Never Substance Use Topics Alcohol use: No Drug use: No ALLERGIES Allergen Reactions Codeine HEADACHE Ibuprofen Other: See Comments Severe headaches UPDATE; PATIENT INDICATED THAT SHE HAS TAKEN AND SHE NO LONGER HAS ALLERGY TO. Ramona Jackson Ma Lisinopril Cough Simvastatin Severe Muscle Pain Sulfa (Sulfonamide * HEADACHE MEDICATIONS: loperamide HCl (IMODIUM ORAL) Take 1 tablet by mouth. Daily prn latanoprost (XALATAN) 0.005 % ophthalmic solution Use 1 Drop in both eyes daily at bedtime. 1 drop both eyes in am and 2 drops amLODIPine (NORVASC) 2.5 mg tablet Take 1 tablet by mouth once daily. metoprolol succinate ER (TOPROL XL) 50 mg 24 hr tablet Take 1 tablet by mouth once daily. FOLIC ACID 1 MG TAB Take one(1) tablet daily. VITAMIN C 500 MG TAB Take 500 mg by mouth once daily. Brimonidine-Timolol 0.2-0.5 % Use 1 Drop in both eyes twice daily. (Patient not taking: No sig reported) amoxicillin (POLYMOX, AMOXIL) 500 mg capsule Take 4 capsules by mouth as directed. Take one hour prior to dental work (Patient not taking: No sig reported) pantoprazole DR (PROTONIX) 20 mg tablet Take 1 tablet by mouth once daily. (Patient not taking: No sig reported) aspirin, enteric coated (ASPIRIN, ENTERIC COATED) 325 mg EC tablet Take 1 tablet by mouth twice daily for 25 days. (Patient not taking: No sig reported) docusate sodium (COLACE) 100 mg capsule Take 1 capsule by mouth twice daily. (Patient not taking: No sig reported) methotrexate 2.5 mg tablet Take six tablets every Saturday. (Patient taking differently: 2 mg. Take six tablets every Saturday. ) OTC NUTRITIONAL SUPPLEMENT Multi-vitamin Take one(1) tablet daily. (Patient not taking: No sig reported) CALCIUM 600 + D 600 MG-125 UNIT TAB Take by mouth once daily. (Patient not taking: No sig reported) REVIEW OF SYSTEMS Review of Systems Constitutional: Negative for appetite change, chills and fever. HENT: Negative for ear discharge, tinnitus and trouble swallowing. Eyes: Negative for pain, redness and visual disturbance. Respiratory: Nega (more content not included)... [facility] 07-10-2022 History of Presen t illness Narrative Images from the original note were not included. Ritesh Jimenez DO [facility] Orthopedics - Orthopedic Spine Surgeon [address] [facility] [address] [facility] [address] [address] [place] [address] Phone: [phone] FAX: [phone] SPINE SURGERY OUTPATIENT CONSULT SERVICE DATE: 07/09/2022 Last Office Visit: 06/26/2022 REFERRING PROVIDER: Ritesh Jimenez [address] [facility] [address] CHIEF COMPLAINT: C2 odontoid fracture HISTORY OF PRESENT ILLNESS India Rodriguez is a 81 year old female presenting with daughter. She was status post Type II dens fracture with minimal 1 mm posterior displacement of the dens relative the vertebral body. At her last visit she stated she was doing great. Stated she had some discomfort in her upper back but takes tylenol for relief. Stated she was using a wheeled walker for additional support with ambulation. Stated she had been compliant with her c-collar. Recommendation was to consult [employer] for a cunstom fit cervical collar, operative intervention was spoke about, patient refused at that time. She was asked to continue to wear the cervical collar at all times and follow-up in 2 weeks with repeat x-rays. Today, she states she got her custom c-collar 2 days after office visit. States she has not removed it since it was placed on her by [employer]. States she has had to adjust at time. She denies any numbness or tingling. Denies loss of bowel or bladder. Denies gait instability. Denies weakness. She is here for image review, evaluation and plan of care. 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) Uveitis PAST SURGICAL HISTORY Procedure Laterality Date CATARACT EXTRACTION HX Right 12/09/2018 CONIZATION CERVIX W/WO D&C RPR ELTRD EXC August 13, 2005 LEEP-[address] CHEST 01/04/2009 TONSILLECTOMY PRIMARY/SECONDARY <AGE 13 Tonsillectomy US LIVER 09/12/2011 VAGINOSCOPY June 13, 2010 ASCUS Pap, Positive HPV FAMILY HISTORY Problem Relation Age of Onset Hypertension Mother other (Leukemia) Mother Hypertension Father Heart Father CHF Social History Tobacco Use Smoking status: Never Smokeless tobacco: Never Substance Use Topics Alcohol use: No Drug use: No ALLERGIES Allergen Reactions Codeine HEADACHE Ibuprofen Other: See Comments Severe headaches UPDATE; PATIENT INDICATED THAT SHE HAS TAKEN AND SHE NO LONGER HAS ALLERGY TO. Ramona Jackson Ma Lisinopril Cough Simvastatin Severe Muscle Pain Sulfa (Sulfonamide * HEADACHE MEDICATIONS: loperamide HCl (IMODIUM ORAL) Take 1 tablet by mouth. Daily prn latanoprost (XALATAN) 0.005 % ophthalmic solution Use 1 Drop in both eyes daily at bedtime. 1 drop both eyes in am and 2 drops amLODIPine (NORVASC) 2.5 mg tablet Take 1 tablet by mouth once daily. metoprolol succinate ER (TOPROL XL) 50 mg 24 hr tablet Take 1 tablet by mouth once daily. FOLIC ACID 1 MG TAB Take one(1) tablet daily. VITAMIN C 500 MG TAB Take 500 mg by mouth once daily. Brimonidine-Timolol 0.2-0.5 % Use 1 Drop in both eyes twice daily. (Patient not taking: No sig reported) amoxicillin (POLYMOX, AMOXIL) 500 mg capsule Take 4 capsules by mouth as directed. Take one hour prior to dental work (Patient not taking: No sig reported) pantoprazole DR (PROTONIX) 20 mg tablet Take 1 tablet by mouth once daily. (Patient not taking: No sig reported) aspirin, enteric coated (ASPIRIN, ENTERIC COATED) 325 mg EC tablet Take 1 tablet by mouth twice daily for 25 days. (Patient not taking: No sig reported) docusate sodium (COLACE) 100 mg capsule Take 1 capsule by mouth twice daily. (Patient not taking: No sig reported) methotrexate 2.5 mg tablet Take six tablets every Saturday. (Patient taking differently: 2 mg. Take six tablets every Saturday. ) OTC NUTRITIONAL SUPPLEMENT Multi-vitamin Take one(1) tablet daily. (Patient not taking: No sig reported) CALCIUM 600 + D 600 MG-125 UNIT TAB Take by mouth once daily. (Patient not taking: No sig reported) REVIEW OF SYSTEMS Review of Systems Constitutional: Negative for appetite change, chills and fever. HENT: Negative for ear discharge, tinnitus and trouble swallowing. Eyes: Negative for pain, redness and visual disturbance. Respiratory: Negative for cough, shortness of breath and wheezing. Cardiovascular: Negative for chest pain, palpitations and leg swelling. Gastrointestinal: Negative for diarrhea, nausea and vomiting. Endocrine: Negative for cold intolerance and heat intolerance. Genitourinary: Negative for difficulty urinating, frequency and urgency. Musculoskeletal: Positive for neck stiffness. Negative for back pain, gait problem and neck pain. Skin: Negative for color change, rash and wound. Allergic/Immunologic: Negative for environmental allergies and food allergies. Neurological: Negative for weakness, numbness and headaches. Hematological: Does not bruise/bleed easily. Psychiatric/Behavioral: Negative for agitation and confusion. The patient is not nervous/anxious. OBJECTIVE: BP 120/76 (BP Site: Right Arm, BP Position: Sitting, BP Cuff Size: Regular Adult) Pulse 77 Temp 36.6 C (97.9 F) Ht 165.1 cm (5' 5 ) Wt 52.6 kg (116 lb) SpO2 98% BMI 19.30 kg/m PHYSICAL EXAM GENERAL APPEARANCE: Well nourished, well developed, and no apparent distress. NEURO PSYCH: Patient oriented to person, place, and time. Mood pleasant. Benign affect. CARDIOVASCULAR: Palpable pulses. No edema noted. No varicosities. SKIN: Head, neck, trunk, and extremities dry, intact and without lesions. LYMPHATICS: No palpable nodes in cervical or axillae areas. Groin exam deferred MUSCULOSKELETAL PALPATION: SPINOUS PROCESS: No pain. PARASPINALS: No pain. MUSCLE TONE and BULK: Symmetrical in the upper & lower extremities. MOTOR: Upper Extremity Left Right Deltoids 5/5 5/5 Biceps 5/5 5/5 Triceps 5/5 5/5 Tube Depatcher 5/5 5/5 Interossei 5/5 5/5 Lower Extremity Hip Flexors 5/5 5/5 Quadriceps 5/5 5/5 Dorsiflexion 5/5 5/5 EHL/EDC 5/5 5/5 Plantar Flexion 5/5 5/5 SENSORY: Sensation intact to light touch C5-T1, L1-S1 GAIT: Able to perform toe and heel walk. Able to perform tandem gait. LONG TRACT SIGNS: No clonus. No Hoffmanns. REFLEXES: symmetric non-brisk DATA REVIEW XR 2V Cervical on 07/09/2022 AP lateral view of the cervical spine displays a displaced C2 odontoid fracture unchanged since previous exam. ASSESSMENT/PLAN India Rodriguez is an 81-year-old female with a C2 odontoid fracture. -I had a long talk today with the patient and her daughter. Again I offer the patient operative intervention. She does not have any neurologic deficits of any kind. She would like to proceed with nonoperative care and a cervical collar. I will continue to see the patient back every 2 weeks for x-rays to make sure that the fracture does not displace. Today x-rays show that the fracture is in stable alignment compared to last time. The following portions of the patient's history were reviewed, confirmed, and updated as necessary: allergies, current medications, past family history, past medical history, past social history, past surgical history, problem list, HPI, and ROS obtained by others. Some elements may be copied from a previous office note and have been reviewed/updated where appropriate. All portions reflect current medical decision making from today. The clinical and radiographic findings as well as the risks, benefits and alternatives of treatment have been reviewed in detail with the patient. Advised to call the office if symptoms worsen or new symptoms develop. Patient expressed understanding and is in agreement with plan. Ritesh Jimenez DO documented in this encounter [facility] 06-26-2022 Note HNO ID: [id number] Author: Ritesh Jimenez DO Service: ? Author Type: Physician Type: Progress Notes Filed: 06/26/2022 10:34 AM Note Text: Ritesh Jimenez DO [facility] Orthopedics - Orthopedic Spine Surgeon [address] [facility] [address] [address] [place] [address] Phone: [phone] ([phone] FAX: [phone] SPINE SURGERY OUTPATIENT CONSULT SERVICE DATE: 06/26/2022 Last Office Visit: New Patient REFERRING PROVIDER: Ritesh Jimenez [address] [facility] [address] CHIEF COMPLAINT: Neck pain HISTORY OF PRESENT ILLNESS India Rodriguez is a 81 year old female presenting with daughter. She presents as a new patient for evaluation after being seen at [facility] after a fall on 06/11/2022. Her work up included a CT and xray's of the cervical spine and showed a Type II dens fracture with minimal 1 mm posterior displacement of the dens relative the vertebral body. Ortho spine was consulted they offered surgical intervention but patient and family elected to try conservative non-operative treatment. She was placed in an Odell cervical collar and told to wear it at all time. She was recommenced to follow up out patient at the 2 week clemencia, prompting her visit today. Today, she she is doing great. States she has some discomfort in her upper back but takes tylenol for relief. States she is using a wheeled walker for additional support with ambulation. States she has been complient with her c-collar. Denies loss of bowel or bladder. Denies numbness or tingling. Patient denies any worsening of her balance since her injury. Denies any worsening in her dexterity since her injury. She is here for image review, evaluation and plan of care. SYMPTOMS: neck pain PREVIOUS CONSERVATIVE TREATMENTS: Cervical Collar Physical Therapy PREVIOUS SURGERY: None Smoker: Denies Diabetic: Denies Anticoagulants / Antiplatelets: ASA 81mg Occupation: Retired PAST MEDICAL HISTORY Diagnosis Date - Abnormal Pap smear 05/10/2010 ASCUS, Positive HPV - Elevated cholesterol - Essential hypertension, benign - Genital herpes - H/O fracture of arm 11/03/2011 right - HPV (human papillomavirus) 09/05/2007, 07/16/2006, 07/02/2005 - Lactose intolerance - Migraine with aura - Pneumonia 03/18/2015 - Retinal vasculitis [facility] - Systemic vasculitis (HCC) - Uveitis PAST SURGICAL HISTORY Procedure Laterality Date - CATARACT EXTRACTION HX Right 12/09/2018 - CONIZATION CERVIX W/WO [facility] RPR ELTRD EXC August 13, 2005 LEEP-Cervix - CT CHEST 01/04/2009 - TONSILLECTOMY PRIMARY/SECONDARY Tonsillectomy - US LIVER 09/12/2011 - VAGINOSCOPY June 13, 2010 ASCUS Pap, Positive HPV FAMILY HISTORY Problem Relation Age of Onset - Hypertension Mother - other (Leukemia) Mother - Hypertension Father - Heart Father CHF Social History Tobacco Use - Smoking status: Never Smoker - Smokeless tobacco: Never Used Substance Use Topics - Alcohol use: No - Drug use: No ALLERGIES Allergen Reactions - Codeine HEADACHE - Ibuprofen Other: See Comments Severe headaches UPDATE; PATIENT INDICATED THAT SHE HAS TAKEN AND SHE NO LONGER HAS ALLERGY TO. Ramona Jackson Ma - Lisinopril Cough - Simvastatin Severe Muscle Pain - Sulfa (Sulfonamide * HEADACHE MEDICATIONS: loperamide HCl (IMODIUM ORAL) Take 1 tablet by mouth. Daily prn latanoprost (XALATAN) 0.005 % ophthalmic solution Use 1 Drop in both eyes daily at bedtime. 1 drop both eyes in am and 2 drops amLODIPine (NORVASC) 2.5 mg tablet Take 1 tablet by mouth once daily. metoprolol succinate ER (TOPROL XL) 50 mg 24 hr tablet Take 1 tablet by mouth once daily. methotrexate 2.5 mg tablet Take six tablets every Saturday. FOLIC ACID 1 MG TAB Take one(1) tablet daily. Brimonidine-Timolol 0.2-0.5 % Use 1 Drop in both eyes twice daily. amoxicillin (POLYMOX, AMOXIL) 500 mg capsule Take 4 capsules by mouth as directed. Take one hour prior to dental work pantoprazole DR (PROTONIX) 20 mg tablet Take 1 tablet by mouth once daily. aspirin, enteric coated (ASPIRIN, ENTERIC COATED) 325 mg EC tablet Take 1 tablet by mouth twice daily for 25 days. docusate sodium (COLACE) 100 mg capsule Take 1 capsule by mouth twice daily. OTC NUTRITIONAL SUPPLEMENT Multi-vitamin Take one(1) tablet daily. CALCIUM 600 + D 600 MG-125 UNIT TAB Take by mouth once daily. VITAMIN C 500 MG TAB Take 500 mg by mouth once daily. REVIEW OF SYSTEMS Review of Systems OBJECTIVE: BP 145/77 (BP Site: Right Arm, BP Position: Sitting, BP Cuff Size: Regular Adult) Pulse 70 Temp 36.6 ?C (97.8 ?F) Ht 165.1 cm (5' 5 ) Wt 52.6 kg (116 lb) SpO2 97% BMI 19.30 kg/m? PHYSICAL EXAM GENERAL APPEARANCE: Well nourished, well developed, and no apparent distress. NEURO PSYCH: Patient oriented to person, place, and time. Mood pleasant. Benign affect. CARDIOVASCULAR: Palpable pulses. No denise (more content not included)... [facility] 06-20-2022 Miscellaneous Notes Good morning, attached patients daughter called into office this morning to make a trauma follow-up for a fall that her mother had. Per daughter, mother was diagnosed with a nasal fracture. Patient also sustained a neck fracture that they have multiple upcoming appointment for. Daughter and patient would like to know if following up for nasal fracture is a priority. Per daughter there is no swelling, no deformities, no breathing issues or bleeding. They are not concerned and would like to know if follow up is safe to push out or if needed at all. Thanks you, Rosita documented in this encounter [facility] 06-14-[address] Jimenez consulted this patient in the hospital. Amy Carl Caustic Preparer [facility] June 14, 2022 11:34 AM ----- Message from Lali Goldberg sent at 06/14/2022 11:18 AM EDT ----- Regarding: Orthopedics / Open Back: (Thoracic Upper) Fracture Broken / Recent ED Visit Contact: Patient has been identified by name and Date of (Y/N): y Patient: India Rodriguez Date of : 1940 Previous Provider Seen: n/a Body Part(s) Identified: Neck / upper back Diagnosis/Reason For Visit: Neck/ upper back Fracture Trauma Reason for the call/escalation: Neck / upper back fracture / Trauma If reason for call/escalation is discharge from ED/ER or Hospital, which facility was the patient seen at: [facility] 06.12.2022 -06.13.2022 Was an appointment scheduled (Y/N): n Person calling if other than patient: y Return call to if other than patient: y Best contact number: Carol/ Tito @ [phone] Thank you, Lali Ashlyn June 14, 2022 11:18 AM documented in this encounter [facility] 06-13-2022 Note HNO ID: [id number] Author: Norberto Quiles PA-C Service: General Surgery Author Type: Physician Cigarette Maker Type: Progress Notes Filed: 06/13/2022 2:52 PM Note Text: Trauma Surgery Progress Note SERVICE DATE: 06/13/2022 Trauma Service Pager: For questions or concerns Mon-Fri 6a-5p please page [phone]. After 5pm and on Weekends and Holidays, please page [phone] if in ICU or [phone] if on RNF. SUBJECTIVE: NAEON. Daughter present at bedside. Patient states she was able to sleep. Her neck pain is well controlled. She denied any numbness, tingling, or weakness in her arms or legs. She denied any CP, SOB, BLANK, N/V, ABD pain, fevers, chills, or cough. Awaiting PT/OT/BLUEPRINT DEVELOPER recommendations. OBJECTIVE: Vitals: Temp (24hrs), Av.6 ?C (97.9 ?F), Min:36.3 ?C (97.3 ?F), Max:36.9 ?C (98.4 ?F) BP 130/77 Pulse 82 Temp 36.5 ?C (97.7 ?F) (Oral) Resp 16 Ht 165.1 cm (5' 5 ) Wt 52.6 kg (116 lb) SpO2 97% BMI 19.30 kg/m? O2 Therapy: Room Air IANDO: Date 06/12/22699 - 06/13/22 0606/13/22699 - 06/14/22 0659 Shift 5412-9383 4245-2433 5417-4496 24 Hour Total 2866-9152 7290-5351 5822-8789 24 Hour Total INTAKE PO 480 480 480 480 PO 480 480 480 480 IV 572.2 572.2 Volume (mL) (lactated ringers iv infusion) 572.2 572.2 Shift Total 1052.2 1052.2 480 480 OUTPUT Urine 800 800 400 400 Void (ml) 400 400 Output ([REMOVED] External Collection Device 06/12/222199 Assessment 06/13/22 06) 800 800 # of BMs Number of BMs 1 x 1 x Shift Total 800 800 400 400 Weight (kg) 52.6 52.6 52.6 52.6 52.6 52.6 52.6 52.6 MEDICATIONS Current Facility-Administered Medications Medication Dose Route Frequency - enoxaparin 30 mg injection (LOVENOX) 30 mg SUBCUTANEOUS q 12 HR - metoprolol succinate ER 50 mg tab(s) (TOPROL XL) 50 mg ORAL DAILY - amLODIPine 2.5 mg tab(s) (NORVASC) 2.5 mg ORAL DAILY - ondansetron 4 mg tab(s) (ZOFRAN) 4 mg ORAL q 6 H PRN Or - ondansetron (PF) 4 mg injection (ZOFRAN) 4 mg INTRAVENOUS q 6 H PRN - acetaminophen 975 mg tab(s) (TYLENOL) 975 mg ORAL q 6 H - sodium chloride 0.9 % (flush) 3-5 mL (BD POSIFLUSH) 3-5 mL INTRAVENOUS q 12 H - senna-docusate 8.6-50 mg 1 tablet (SENNA-S) 1 tablet ORAL BID - latanoprost 0.005 % 1 Drop (XALATAN) 1 Drop BOTH EYES AT BEDTIME - brimonidine 0.2 % 1 Drop (ALPHAGAN) 1 Drop BOTH EYES BID And - timolol maleate 0.5 % 1 Drop (TIMOPTIC) 1 Drop BOTH EYES BID - oxyCODONE IR 2.5-5 mg tab(s) (ROXICODONE) 2.5-5 mg ORAL q 6 H PRN Labs: Recent Labs 06/13/22 0451 06/12/22 0418 06/12/22 0231 NA 139 138 138 K 3.4* 3.3* 3.5* CHLOR 105 104 104 CO2 23 23 21* BUN 10 12 12 CREAT 0.49* 0.53* 0.56* GLUC 107* 132* 129* ANION 11 11 13 CA 8.8 8.6 9.0 ALB -- -- 4.3 AST -- -- 37* ALT -- -- 23 ALKPHOS -- -- 79 TBILI -- -- 0.6 WBC 9.47 7.81 8.98 HB 13.6 12.7 13.6 HCT 39.4 36.9 40.0 PLT 184 176 192 INR -- -- <0.9* PHYSICAL EXAM: Genl: Appears age appropriate. No acute distress. Resting comfortably. Head/Face: Normocephalic. Nasal and periorbital ecchymosis noted. Eyes: EOMI. Sclera not icteric, not injected Neck: In Odell collar Back: T AND L Spine non-tender, no step-offs or deformities noted. No flank tenderness. Resp: No audible wheezes. Breathing is non-labored on RA @97%. CVS: HR as above; 2+ pulses at RA, DP bilat. GI: Abdomen is soft, non-tender, not distended. No peritonitis. MSK: Extremities without clubbing, cyanosis, edema. Normal ROM x 4. Left third finger laceration s/p repaired with sutures. No drainage noted. There is ecchymosis of the left hand. Skin: Warm and dry. Not jaundiced. Neuro: AANDOx3. Strength and sensation normal. PELAEZ. GCS15. Psych: Normal mood. Normal affect. Appropriate insight into current situation. ASSESSMENT AND PLAN: Active Hospital Problems Diagnosis Date Noted - Trauma 06/12/2022 - Fall 06/13/2022 - Closed odontoid fracture with routine healing 06/13/2022 - Hypokalemia 06/13/2022 - Essential hypertension, benign Chronic - Laceration of left middle finger without foreign body without damage to nail - Closed fracture of nasal bone with routine healing 81 year old female s/p ground level fall on 06/11/2022. Level 3 trauma transfer from [facility]. Imaging performed: 1. CT H/N/F at [facility] on 06/11/2022 2. CXR, PXR, XR Left Hand, XR Cervical spine, CTA H/N, and repeat CT C-spine on 06/12/2022 Traumatic Injuries: 1. Type II dens fracture with minimal 1 mm posterior displacement of the dens relative the vertebral body. 2. Closed nasal bone fracture: 3. Left 3rd finger laceration: Operations/Procedures: 1. None Care Plan: 1. Type II Dens fracture: 1. Ortho-spine consulted 2. Conservative non-operative management 3. q4 neuro checks 4. Maintain Odell c-collar at all times 5. She remains neurologically intact 6. Will need PT/OT/BLUEPRINT DEVELOPER recommendations for dispo planning 2. Nasal bone fracture: 1. Conservative non-op management 2. Sin (more content not included)... [facility] 06-13-2022 Note HNO ID: [id number] Author: Alexandra Grijalva RN Service: Care Management Author Type: Registered Nurse Type: Care Mgt Progress Note Filed: 06/13/2022 2:31 PM Note Text: CARE MANAGEMENT DISCHARGE NOTE SERVICE DATE: 06/13/2022 SERVICE TIME: 2:24 PM LOS: 1 day Admission Date: 06/12/2022 DISCHARGE ARRANGEMENT (list agency and phone number) Discharge Arrangement: Home with Relative CAREGIVER ASSESSMENT: Caregiver is ready, willing and able to meet the patient's needs as recommended by the inter-professional team:: Yes Patient's transition needs and plan for meeting these needs: Home with outpatient therapy and follow up care HANDOFF COMMUNICATION: Handoff to: Other Caregiver Other Caregiver Name/Phone: Bedside RN to give patient discharge instructions TRANSPORTATION ARRANGEMENTS: Transportation Arrangements: Car Needs Prior to Discharge: Ready for Discharge Chart reviewed. Patient from home with her spouse prior to admission. S/p GLF. Odontoid fx. Closed nasal bone fx. Left middle finger abrasion. PT recommends outpatient therapy. OT recommends home therapy. Spoke with patient and patient's daughter Leonora at the bedside. Explained care management role. Anticipated discharge today per the trauma team . Awaiting discharge orders. Plan is for patient to return home at discharge with outpatient therapy services at the [facility]. Patient's daughter Leonora reports that patient's family is willing/ able to care for her as needed including providing 24/7 care. Patient's family will provide transportation at discharge. Will continue to follow for further DC planning needs. SIGNATURE: Alexandra Grijalva RN PATIENT NAME: India Rodriguez DATE: June 13, 2022 TIME: 2:24 PM PAGER/CONTACT #: [phone] [facility] 06-13-2022 Note HNO ID: [id number] Author: Alexandra Grijalva RN Service: Care Management Author Type: Registered Nurse Type: Care Mgt Progress Note Filed: 06/13/2022 2:21 PM Note Text: CARE MANAGEMENT PROGRESS NOTE SERVICE DATE: 06/13/2022 SERVICE TIME: 1:59 PM LOS: 1 day RODRIGUEZ Follow Up Copy Given: Yes Copy given to:: Patient Method: In Person SIGNATURE: Alexandra Grijalva RN PATIENT NAME: India Rodriguez DATE: June 13, 2022 TIME: 2:20 PM PAGER/CONTACT #: [phone] [facility] 06-13-2022 Note HNO ID: [id number] Author: Leatha Cesar RN Service: Care Management Author Type: Registered Nurse Type: Care Mgt Progress Note Filed: 06/13/2022 12:16 PM Note Text: CARE MANAGEMENT UTILIZATION REVIEW COMMITTEE CODE 44 (Admission Status Discrepancy Review) Admission Date: 06/12/2022 Patient's Initial Order is: Inpatient Date Received: June 13, 2022 Date Reviewed: June 13, 2022 , the practitioner responsible for the care of the patient, was consulted and concurs with the determinination made by the UR committee. Under the authority of the Utilization Management Plan, the Physician Advisor, Dr. Lucas Meneses, has reviewed the medical record of the above patient. The following recommendation has been made by the Physician Advisor, based upon the current available medical information as of the date of this determination. The patient is appropriate for: Observation Rationale for this decision: Lack of medical necessity for inpatient admission SIGNATURE: Leatha Cesar RN PATIENT NAME: India Rodriguez DATE: June 13, 2022 TIME: 12:16 PM PAGER/CONTACT #: [phone] Disclaimer: The information in this determination is to be used for utilization management purposes only. The information and recommendation is made pursuant to Medicare Hospital Conditions of Participation (442 CFR Part 482) and is neither a judgment nor an assessment with regard to the appropriateness or quality of the clinical care. Nothing in this document may be used to limit clinical services provided to the above named patient. This form should be used as one part of the process utilized to ensure compliance with [facility] policy regarding Inpatient Admission and Observation Services. The definitions of Inpatient and Observation used in making the determination above are those provided in Medicare Benefit Policy Manual Chapter 1, Section 1 and 10, Chapter 6, Section 20, and the Medicare Claims Processing Manual Chapter 1, Section 50.3 and Chapter 4, Section 290. This recommendation should be considered as only one factor in determining the patient's final level of service along with other pertinent documentation such as the treating physician's order as documented evidence of concurrence. [facility] documented as of this encounter (statuses as of 06/14/2022) [facility] History of Past illness Narrative* Problem Noted Date Resolved Date Fall 06/13/2022 06/13/2022 Hypokalemia 06/13/2022 06/13/2022 Trauma 06/12/2022 06/13/2022 documented as of this encounter (statuses as of 06/27/2022) [facility] History of Past illness Narrative* Problem Noted Date Resolved Date Fall 06/13/2022 06/13/2022 Hypokalemia 06/13/2022 06/13/2022 Trauma 06/12/2022 06/13/2022 documented as of this encounter (statuses as of 06/27/2022) [facility] History of Past illness Narrative* Problem Noted Date Resolved Date Fall 06/13/2022 06/13/2022 Hypokalemia 06/13/2022 06/13/2022 Trauma 06/12/2022 06/13/2022 documented as of this encounter (statuses as of 07/10/2022) [address]22 History of Past illness Narrative* Problem Noted Date Resolved Date Fall 06/13/2022 06/13/2022 Hypokalemia 06/13/2022 06/13/2022 Trauma 06/12/2022 06/13/2022 documented as of this encounter (statuses as of 07/11/2022) [address]22 History of Past illness Narrative* Problem Noted Date Resolved Date Fall 06/13/2022 06/13/2022 Hypokalemia 06/13/2022 06/13/2022 Trauma 06/12/2022 06/13/2022 documented as of this encounter (statuses as of 07/13/2022) [facility] History of Past illness Narrative* Problem Noted Date Resolved Date Fall 06/13/2022 06/13/2022 Hypokalemia 06/13/2022 06/13/2022 Trauma 06/12/2022 06/13/2022 documented as of this encounter (statuses as of 07/18/2022) [address]22 History of Past illness Narrative* Problem Noted Date Resolved Date Fall 06/13/2022 06/13/2022 Hypokalemia 06/13/2022 06/13/2022 Trauma 06/12/2022 06/13/2022 documented as of this encounter (statuses as of 07/24/2022) [address]22 History of Past illness Narrative* Problem Noted Date Resolved Date Fall 06/13/2022 06/13/2022 Hypokalemia 06/13/2022 06/13/2022 Trauma 06/12/2022 06/13/2022 documented as of this encounter (statuses as of 07/25/2022) [address]22 History of Past illness Narrative* Problem Noted Date Resolved Date Fall 06/13/2022 06/13/2022 Hypokalemia 06/13/2022 06/13/2022 Trauma 06/12/2022 06/13/2022 documented as of this encounter (statuses as of 08/07/2022) [address]22 History of Past illness Narrative* Problem Noted Date Resolved Date Fall 06/13/2022 06/13/2022 Hypokalemia 06/13/2022 06/13/2022 Trauma 06/12/2022 06/13/2022 documented as of this encounter (statuses as of 08/08/2022) [address]22 History of Past illness Narrative* Problem Noted Date Resolved Date Fall 06/13/2022 06/13/2022 Hypokalemia 06/13/2022 06/13/2022 Trauma 06/12/2022 06/13/2022 documented as of this encounter (statuses as of 08/22/2022) [address]22 History of Past illness Narrative* Problem Noted Date Resolved Date Fall 06/13/2022 06/13/2022 Hypokalemia 06/13/2022 06/13/2022 Trauma 06/12/2022 06/13/2022 documented as of this encounter (statuses as of 08/30/2022) [facility] History of Past illness Narrative* Problem Noted Date Resolved Date Fall 06/13/2022 06/13/2022 Hypokalemia 06/13/2022 06/13/2022 Trauma 06/12/2022 06/13/2022 documented as of this encounter (statuses as of 09/04/2022) [facility] History of Past illness Narrative* Problem Noted Date Resolved Date Fall 06/13/2022 06/13/2022 Hypokalemia 06/13/2022 06/13/2022 Trauma 06/12/2022 06/13/2022 documented as of this encounter (statuses as of 09/05/2022) [facility] History of Past illness Narrative* Problem Noted Date Resolved Date Fall 06/13/2022 06/13/2022 Hypokalemia 06/13/2022 06/13/2022 Trauma 06/12/2022 06/13/2022 documented as of this encounter (statuses as of 10/16/2022) [address]22 History of Past illness Narrative* Problem Noted Date Resolved Date Fall 06/13/2022 06/13/2022 Hypokalemia 06/13/2022 06/13/2022 Trauma 06/12/2022 06/13/2022 documented as of this encounter (statuses as of 10/17/2022) [facility] NoteHNO ID: [id number] Author: Maury Bush MD Service: Orthopaedic Surgery Author Type: Resident Type: Progress Notes Filed: 06/13/2022 10:41 AM Note Text: ORTHOPAEDIC SURGERY POSTOP DAILY PROGRESS NOTE Patient Name: India Rodriguez Date of Evaluation: 06/13/2022 Admission Date: 06/12/2022 Time of Evaluation: 6:08 AM ASSESSMENT: 81 year old female with odontoid fracture PLAN: Management per primary team. Pain control. Weight-bearing status: WBAT in cervical collar Imaging: Upright XR Cervical Spine - completed Odell collar at all times. Neurochecks Q4 INTERVAL HPI: Patient monitored, no new events overnight. Patient states that they are comfortable. Denies pain. Denies nausea/vomitting. OBJECTIVE: BP 170/81 Pulse 65 Temp 36.5 ?C (97.7 ?F) (Oral) Resp 18 Ht 165.1 cm (5' 5 ) Wt 52.6 kg (116 lb) SpO2 96% BMI 19.30 kg/m? Intake/Output Summary (Last 24 hours) 06/12 2300 - 06/13 0659 In: 802.2 [PO:480; IV:322.2] Out: 500 [Urine:500] Exam: General: NAD, AAOx3 Extremities: Spine Sensation: Sensation intact to light touch in C5-T1 and L1-S1 dermatomes. Motor: Upper Extremities Right Left Deltoid (C5) 5 5 Biceps (C6) 5 5 Triceps (C7) 5 5 Tube Depatcher (C8) 5 5 Interossei (T1) 5 5 Lower Extremities Right Left Psoas (L2) 5 5 Quadriceps (L3) 5 5 Dorsiflexion (L4) 5 5 EHL (L5) 5 5 Plantarflexion (S1) 5 5 Special Tests: Kaur's absent, Babinski down-going, clonus absent. Labs: BMP: NA 139 06/13/2022 K 3.4 06/13/2022 Chloride 105 06/13/2022 CO2 23 06/13/2022 BUN 10 06/13/2022 Creatinine 0.49 06/13/2022 Glucose 107 06/13/2022 CBC: WBC 9.47 06/13/2022 Hemoglobin 13.6 06/13/2022 HCT 39.4 06/13/2022 PLT 184 06/13/2022 COAGS: APTT 23.7 06/12/2022 INR <0.9 06/12/2022 SED RATE/CRP: Sed Rate, Westergren 2 10/09/2018 CRP <2.90 10/09/2018 Imaging: No new images Maury Bush MD Resident, Orthopaedic Surgery Pager #: [phone] 06/13/2022 6:08 AM Please page [phone] from 5p-6a and on weekends for any issues.[facility]07-13-2022 NoteHNO ID: [id number] Author: Samy Apple MD Service: Orthopaedic Surgery Author Type: Resident Type: Plan of Care Filed: 06/12/2022 10:19 PM Note Text: Orthopedic Surgery Plan of Care: Upright XR of cervical spine demonstrate stable placement of odontoid fracture. The atlantodental alignment is maintained. Continue plan outlined in previous orthopedic note. Plan 1. Management per primary team. 2. Pain control. 3. Weight-bearing status: WBAT in cervical collar 4. Imaging: Upright XR Cervical Spine - completed 5. Odell collar at all times. 6. Neurochecks Q4 Samy Apple MD June 12, 2022 10:19 [facility]07-12-2022 NoteHNO ID: [id number] Author: RICKEY Balbuena Service: Care Management Author Type: Electronics Test Engineer Type: Care Mgt Initial Assessment Filed: 06/12/2022 7:01 PM Note Text: CARE MANAGEMENT: ASSESSMENT AND DISCHARGE PLAN SERVICE DATE: June 12, 2022 SERVICE TIME: 6:55 PM PRIMARY CARE PHYSICIAN: Rosita Lentz MD Primary Contact: Extended Emergency Contact Information Primary Emergency Contact: Jhonatan Rodriguez Address: [address] [place] [address] [place] [address] Mobile Relation: Spouse Secondary Emergency Contact: Sonia Welch Relation: Daughter ADMISSION STATUS: Inpatient Insurance Provider: MEDICARE A AND B NEEDS PRIOR TO DISCHARGE Needs Prior to Discharge: To Be Determined POTENTIAL TRANSITION PLANS Home Based on clinical judgement, Care Management will address the following needs: Medical Patient's perception of need for this admission: ADVANCE DIRECTIVES Current Advance Directive: Health Care Power of Production Metal Sprayer;Living Will In Chart: Yes Up To Date and Valid: Yes MS/BEHAVIOR Baseline Mental Status Prior to this Illness what was the patient's Baseline Mental Status?: Alert AND Oriented Prior to this illness, has anyone described the patient having any of the following behaviors?: Not Applicable Relationship of the informant to the patient:: Self READMISSION Last Discharge Date: 07/27/19 Is this Within the Past 30 days? From what level of care did patient present?: Home Last discharge within 30 days: No PATIENT SCREEN Under the care of a PCP?: Yes, External Provider Provider Name: Rosita Lentz Last Known Visit: Unknown Does the patient have transportation upon discharge?: No Situation: Family can assist Use of any community resources?: No Situation: None reported Does the patient have a stable and supportive living arrangement and home setting?: Yes Situation: Home with Are there any potential risks or gaps identified by risk/functional/fall,etc. scores in the EMR?: Yes Situation: [employer] [place] [employer], Feel after cleaning trahs can Recommendation: Possible PT Needs Any potential risks related to substance abuse and/or behavioral health?: Yes Situation: NOne Based on clinical judgement, Care Management will address the following needs: Medical CAREGIVER ASSESSMENT Caregiver is ready, willing and able to meet the patient's needs as recommended by the inter-professional team:: No Caregiver needed Patient's transition needs and plan for meeting these needs: Plan for patient to discharge home when medically ready MEDICAL Medical Needs: Two or more chronic diseases Health Issues Impacting Discharge Plan: Newly diagnosed Newly Diagnosed: Fall Medication Adherance I am convinced of the importance of my prescription medication: 0 - Agree Completely I worry that my prescription medication will do more harm than good to me : 0 - Disagree Completely I feel financially burdened by my zme-cw-wvrwra expenses for my prescription medication:: 0 - Disagree Completely Risk Score: 0 Patient is categorized as: Low risk < 2 No medical discharge barriers identified at this time. No social discharge barriers identified at this time. No behavioral/cognitive discharge barriers identified at this time. No functional discharge barriers identified at this time. FREEDOM OF CHOICE EXPLAINED: [place] of Choice Given: No Reason Not Given: No placements necessary Are you interested in bedside delivery of your medications? No Is Patient Psychosocially Complex?: No ASSESSMENT AND PLAN: Patient was at a test. Information was obtained from patients daughter who was at bedside. Patient lives at home Is able to ambulate independently. Patient uses no DME at home. Patient has Rx coverage and expressed no issues affording medications. SDaughter reports patient has a PCP and is unsure of last visit. Patient has no history of psychosocial issues. Daughter reports patient is independent with ADL's and stated that she tripped today after cleaning her trash can. Plan for patient to discharge home when medically ready. SW will continue to follow clinical course SIGNATURE: RICKEY Balbuena PATIENT NAME: India Rodriguez DATE: June 12, 2022 TIME: 6:53 PM CONTACT #: [id number] Closed odontoid fracture with delayed healing, subsequent encounter- [facility] Closed odontoid fracture with delayed healing, subsequent encounter- [facility] Diagnosis Closed odontoid fracture with delayed healing, subsequent [facility] Diagnosis Closed odontoid fracture with delayed healing, subsequent encounter- Primary Neck pain Cervicalgia [facility] Diagnosis Closed odontoid fracture with delayed healing, subsequent encounter- [facility] Diagnosis Ne[facility] Cervicalgia [facility] Diagnosis Closed odontoid fracture with delayed healing, subsequent [facility] Diagnosis Closed odontoid fracture with delayed healing, subsequent encounter- [facility] Diagnosis Closed odontoid fracture with delayed healing, subsequent [facility] Diagnosis Closed odontoid fracture with delayed healing, subsequent encounter- Primary documented in this encounter [facility] note* Diagnosis Closed odontoid fracture with delayed healing, subsequent encounter documented in this encounter [facility] note* Diagnosis Malignant neoplasm of endocervix (HCC)- Primary Malignant neoplasm of endocervix Cytologic evidence of malignancy on smear of cervix documented in this encounter [facility] note* Diagnosis Malignant neoplasm of endocervix (HCC)- Primary Malignant neoplasm of endocervix documented in this encounter [facility] for referral (narrative)* Diagnostic Procedure Only (Routine) - Closed Specialty Diagnoses / Procedures Referred By Contac t Referred To Contact XR IMAGING Diagnoses Neck pain Procedures XR CERV GENERAL 2V AP/LAT RADEX SPINE CERVICAL 2 OR 3 VIEWS Ritesh Jimenez, DO [address] [place] [address] [place] [id number] Xr Imaging Referral ID Status Reason Start Date Expiration Date V isits Requested Visits Authorized [id number] Closed Auto-Generate d Referral 06/20/2022 07/20/2023 1 1 [facility] for referral (narrative)* Diagnostic Procedure Only (Routine) - Pending Review Specialty Diagnoses / Procedures Referred By Contac t Referred To Contact XR IMAGING Diagnoses Closed odontoid fracture with delayed healing, subsequent encounter Procedures XR CERV GENERAL 2V AP/LAT RADEX SPINE CERVICAL 2 OR 3 VIEWS Ritesh Jimenez, DO [address] [place] [place] [id number] Xr Imaging Referral ID Status Reason Start Date Expiration Date Visits Requested Visits Authorized [id number] Pending Review Auto-Generat ed Referral 07/10/2022 2023 1 1 * Diagnostic Procedure Only (Routine) - Closed Specialty Diagnoses / Procedures Referred By Contac t Referred To Contact XR IMAGING Diagnoses Closed odontoid fracture with delayed healing, subsequent encounter Procedures XR CERV GENERAL 2V AP/LAT RADEX SPINE CERVICAL 2 OR 3 VIEWS Ritesh Jimenez, DO [address] [place] [place] [id number] Xr Imaging Referral ID Status Reason Start Date Expiration Date V isits Requested Visits Authorized [id number] Closed Auto-Generate d Referral 07/04/2022 2023 1 1 [facility] for referral (narrative)* Diagnostic Procedure Only (Routine) - Closed Specialty Diagnoses / Procedures Referred By Contac t Referred To Contact XR IMAGING Diagnoses Closed odontoid fracture with delayed healing, subsequent encounter Procedures XR CERV GENERAL 2V AP/LAT RADEX SPINE CERVICAL 2 OR 3 VIEWS Ritesh Jimenez, DO [address] [place] [place] [id number] Xr Imaging Referral ID Status Reason Start Date Expiration Date V isits Requested Visits Authorized [id number] Closed Auto-Generate d Referral 07/04/2022 2023 1 1 [facility] for referral (narrative)* Diagnostic Procedure Only (Routine) - Authorized Specialty Diagnoses / Procedures Referred By Contac t Referred To Contact XR IMAGING Diagnoses Neck pain Procedures XR CERV GENERAL 2V AP/LAT RADEX SPINE CERVICAL 2 OR 3 VIEWS Ritesh Jimenez, DO [address] [place] [place] [id number] Xr Imaging Referral ID Status Reason Start Date Expiration Date Visits Requested Visits Authorized [id number] Authorized Auto-Generat ed Referral 07/24/2022 08/10/2023 1 1 T [facility] for referral (narrative)* Diagnostic Procedure Only (Routine) - Closed Specialty Diagnoses / Procedures Referred By Contac t Referred To Contact XR IMAGING Diagnoses Closed odontoid fracture with delayed healing, subsequent encounter Procedures XR CERV GENERAL 2V AP/LAT RADEX SPINE CERVICAL 2 OR 3 VIEWS Ritesh Jimenez, DO [address] [place] [place] [id number] Xr Imaging Referral ID Status Reason Start Date Expiration Date V isits Requested Visits Authorized [id number] Closed Auto-Generate d Referral 07/10/2022 2023 1 1 T [facility] for referral (narrative)* Diagnostic Procedure Only (Routine) - Pending Review Specialty Diagnoses / Procedures Referred By Contac t Referred To Contact XR IMAGING Diagnoses Closed odontoid fracture with delayed healing, subsequent encounter Procedures XR CERV GENERAL 2V AP/LAT RADEX SPINE CERVICAL 2 OR 3 VIEWS Ritesh Jimenez, DO [address] [place] [place] [address] Xr Imaging Referral ID Status Reason Start Date Expiration Date Visits Requested Visits Authorized [id number] Pending Review Auto-Generat ed Referral 08/07/2022 08/29/2023 1 1 T [facility] for referral (narrative)* Diagnostic Procedure Only (Routine) - Closed Specialty Diagnoses / Procedures Referred By Contac t Referred To Contact XR IMAGING Diagnoses Neck pain Procedures XR CERV GENERAL 2V AP/LAT RADEX SPINE CERVICAL 2 OR 3 VIEWS Ritesh Jimenez, DO [address] [place] [place] [address] Xr Imaging Referral ID Status Reason Start Date Expiration Date V isits Requested Visits Authorized [id number] Closed Auto-Generate d Referral 07/24/2022 08/10/2023 1 1 T [facility] for referral (narrative)* Diagnostic Procedure Only (Routine) - Closed Specialty Diagnoses / Procedures Referred By Contac t Referred To Contact XR IMAGING Diagnoses Closed odontoid fracture with delayed healing, subsequent encounter Procedures XR CERV GENERAL 2V AP/LAT RADEX SPINE CERVICAL 2 OR 3 VIEWS Ritesh Jimenez, DO [address] [place] [place] [id number] Xr Imaging Referral ID Status Reason Start Date Expiration Date V isits Requested Visits Authorized [id number] Closed Auto-Generate d Referral 08/07/2022 08/29/2023 1 1 T [facility] for referral (narrative)* Diagnostic Procedure Only (Routine) - Closed Specialty Diagnoses / Procedures Referred By Contac t Referred To Contact XR IMAGING Diagnoses Closed odontoid fracture with delayed healing, subsequent encounter Procedures XR CERVICAL 2V FLEX/EXT RADEX SPINE CERVICAL 2 OR 3 VIEWS Ritesh Jimenez, DO [address] [place] [place] [phone] Xr Imaging Referral ID Status Reason Start Date Expiration Date V isits Requested Visits Authorized [id number] Closed Auto-Generate d Referral 09/04/2022 10/04/2023 1 1 * Diagnostic Procedure Only (Routine) - Closed Specialty Diagnoses / Procedures Referred By Contac t Referred To Contact XR IMAGING Diagnoses Closed odontoid fracture with delayed healing, subsequent encounter Procedures XR CERV GENERAL 2V AP/LAT RADEX SPINE CERVICAL 2 OR 3 VIEWS Ritesh Jimenez, DO [address] [place] [place] [address] Xr Imaging Referral ID Status Reason Start Date Expiration Date V isits Requested Visits Authorized [id number] Closed Auto-Generate d Referral 08/27/2022 09/26/2023 1 1 [facility] for referral (narrative)* Diagnostic Procedure Only (Routine) - Closed Specialty Diagnoses / Procedures Referred By Contac t Referred To Contact XR IMAGING Diagnoses Closed odontoid fracture with delayed healing, subsequent encounter Procedures XR CERVICAL 2V FLEX/EXT RADEX SPINE CERVICAL 2 OR 3 VIEWS Ritesh Jimenez, DO [address] [place] [place] [id number] Xr Imaging Referral ID Status Reason Start Date Expiration Date V isits Requested Visits Authorized [id number] Closed Auto-Generate d Referral 09/04/2022 10/04/2023 1 1 * Diagnostic Procedure Only (Routine) - Closed Specialty Diagnoses / Procedures Referred By Contac t Referred To Contact XR IMAGING Diagnoses Closed odontoid fracture with delayed healing, subsequent encounter Procedures XR CERV GENERAL 2V AP/LAT RADEX SPINE CERVICAL 2 OR 3 VIEWS Ritesh Jimenez, DO [address] [place] [address] Xr Imaging Referral ID Status Reason Start Date Expiration Date V isits Requested Visits Authorized [id number] Closed Auto-Generate d Referral 08/27/2022 09/26/2023 1 1 [facility] for referral (narrative)* Diagnostic Procedure Only (Routine) - Closed Specialty Diagnoses / Procedures Referred By Contac t Referred To Contact XR IMAGING Diagnoses Closed odontoid fracture with delayed healing, subsequent encounter Procedures XR CERVICAL 2V FLEX/EXT RADEX SPINE CERVICAL 2 OR 3 VIEWS Ritesh Jimenez, DO [address] [place] [place] [id number] Xr Imaging Referral ID Status Reason Start Date Expiration Date V isits Requested Visits Authorized [id number] Closed Auto-Generate d Referral 09/06/2022 10/06/2023 1 1 [facility] for visit Narrative* Diagnostic Procedure Only (Routine) - Closed Specialty Diagnoses / Procedures Referred By Contac t Referred To Contact XR IMAGING Diagnoses Neck pain Procedures XR CERV GENERAL 2V AP/LAT RADEX SPINE CERVICAL 2 OR 3 VIEWS Ritesh Jimenez, DO [address] [place] [place] [address] Xr Imaging Referral ID Status Reason Start Date Expiration Date V isits Requested Visits Authorized [id number] Closed Auto-Generate d Referral 06/20/2022 07/20/2023 1 1 [facility] for visit Narrative* Diagnostic Procedure Only (Routine) - Closed Specialty Diagnoses / Procedures Referred By Contac t Referred To Contact XR IMAGING Diagnoses Closed odontoid fracture with delayed healing, subsequent encounter Procedures XR CERV GENERAL 2V AP/LAT RADEX SPINE CERVICAL 2 OR 3 VIEWS Ritesh Jimenez, DO [address] [place] [place] [id number] Xr Imaging Referral ID Status Reason Start Date Expiration Date V isits Requested Visits Authorized [id number] Closed Auto-Generate d Referral 07/04/2022 2023 1 1 [facility] for visit Narrative* Diagnostic Procedure Only (Routine) - Closed Specialty Diagnoses / Procedures Referred By Contac t Referred To Contact XR IMAGING Diagnoses Closed odontoid fracture with delayed healing, subsequent encounter Procedures XR CERV GENERAL 2V AP/LAT RADEX SPINE CERVICAL 2 OR 3 VIEWS Ritesh Jimenez, DO [address] [place] [place] [address] Xr Imaging Referral ID Status Reason Start Date Expiration Date V isits Requested Visits Authorized [id number] Closed Auto-Generate d Referral 07/10/2022 2023 1 1 [facility] for visit Narrative* Diagnostic Procedure Only (Routine) - Closed Specialty Diagnoses / Procedures Referred By Contac t Referred To Contact XR IMAGING Diagnoses Neck pain Procedures XR CERV GENERAL 2V AP/LAT RADEX SPINE CERVICAL 2 OR 3 VIEWS Ritesh Jimenez, DO [address] [address] Xr Imaging Referral ID Status Reason Start Date Expiration Date V isits Requested Visits Authorized [id number] Closed Auto-Generate d Referral 07/24/2022 08/10/2023 1 1 [facility] for visit Narrative* Diagnostic Procedure Only (Routine) - Closed Specialty Diagnoses / Procedures Referred By Contac t Referred To Contact XR IMAGING Diagnoses Closed odontoid fracture with delayed healing, subsequent encounter Procedures XR CERV GENERAL 2V AP/LAT RADEX SPINE CERVICAL 2 OR 3 VIEWS Ritesh Jimenez, DO [address] [place] [place] [id number] Xr Imaging Referral ID Status Reason Start Date Expiration Date V isits Requested Visits Authorized [id number] Closed Auto-Generate d Referral 08/07/2022 08/29/2023 1 1 [facility] for visit Narrative* Diagnostic Procedure Only (Routine) - Closed Specialty Diagnoses / Procedures Referred By Contac t Referred To Contact XR IMAGING Diagnoses Closed odontoid fracture with delayed healing, subsequent encounter Procedures XR CERV GENERAL 2V AP/LAT RADEX SPINE CERVICAL 2 OR 3 VIEWS Ritesh Jimenez, DO [address] [place] [address] Xr Imaging Referral ID Status Reason Start Date Expiration Date V isits Requested Visits Authorized [id number] Closed Auto-Generate d Referral 08/27/2022 09/26[facility]23 [facility] Procedure Only (Routine) - Closed Specialty Diagnoses / Procedures Referred By Contac t Referred To Contact XR IMAGING Diagnoses Closed odontoid fracture with delayed healing, subsequent encounter Procedures XR CERVICAL 2V FLEX/EXT RADEX SPINE CERVICAL 2 OR 3 VIEWS Ritesh Jimenez, DO [address] [place] [place] [id number] Xr Imaging Referral ID Status Reason Start Date Expiration Date V isits Requested Visits Authorized [id number] Closed Auto-Generate d Referral 09/06/2022 10/06/2023 1 1 [facility] Summary Purpose Family History No Family History Records FoundNo Family History Records FoundNo Family History Records FoundNo Family History Records FoundNo Family History Records Found Advance Directives No Advanced Directives Records FoundDocuments on File Type Date Recorded 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 ACP-Advance Directive 02/20/2021 12:00 AM Latest Code Status on File Code Status Date Activated Date Inactivated Comments Full Code 02/24/2021 8:14 AM Documents on File Type Date Recorded 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 Advance Directives and Livin g Will 02/28/2021 2:55 PM ACP-Advance Directive 02/20/2021 12:00 AM Latest Code Status on File Code Status Date Activated Date Inactivated Comments Full Code 02/28/2021 7:39 PM Full Code 02/28/2021 1:34 PM 02/28/2021 7:25 PM Full Code 02/24/2021 8:14 AM 02/24/2021 2:01 PM Documents on File Type Date Recorded 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 Advance Directive(s) 06/12/2022 2:26 AM Advance Directive(s) 07/22/2019 7:53 AM Advance Directive(s) 07/17/2019 8:54 AM Documents on File Type Date Recorded 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 Advance Directive(s) 06/12/2022 2:26 AM Advance Directive(s) 07/22/2019 7:53 AM Advance Directive(s) 07/17/2019 8:54 AM Documents on File Type Date Recorded 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 Advance Directive(s) 07/17/2019 8:54 AM Documents on File Type Date Recorded 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 Some of the information contained on this summary may be confidential. This information should be kept in your records and should be shared with your regular doctor. These instructions explain what you or your intensive care anaesthetist need to do to continue your care at home or at another healthcare facility ? Please go over these instructions with your nurse and intensive care anaesthetist. ? If you are not sure about something, please ask. Highest Readmission Risk Score: 7 The 30 day readmiss (more content not included)... 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 Cytologic evidence of malignancy on smear of cervix ? Post-operative state ? Malignant neoplasm of endocervix (HCC) Post op delirium Surgical Operations & Procedures: Modified Radical ALYCE-BSO, LNS Consultations: N/A Pertinent Findings & Procedures: India Rodriguez is a 80 y.o. female admitted for post operative care from the above noted procedure. She met all appropriate post operative milestones. She passed her voiding trial. Hospital course normal, discharged home on POD#2. Pathology pending at time of discharge. Follow up in 2 weeks. Discharge instructions reviewed and questions answered. Course of patient: normal Discharge to: Home Wound Care: keep wound clean and dry Recommenda (more content not included)... Discharge Instructions * Instructions* Jolly Burgos RN - 02/20/2021 Shower with the Hibiclens product given to you in Pre-Admission Testing. Shower with Hibiclens the night prior to surgery. Wash your hair with regular product and rinse off. You may use the Hibiclensfoam directly on the skin or with a dry washcloth. Step out of the shower stream when applying the foam and use foam on entire body and then rinse off. Do not use this product on your face or genitals -use an antibacterial bar soap such as Dial or safeguard. Follow the instructions and wear clean clothes to bed and clean linen on the bed the night before surgery. Follow the instructions and showerwith Hibiclens the morning of surgery and wear clean, comfortable clothes to the hospital. Please bring your [facility] Surgical Information folder on the day of surgery. Please clemencia the last dose taken (date and time ) on your Daily Medications List provided in your After Visit Summary. Please bring a photo ID and insurance information TAKE the following medications the morning of your surgery: AMLODIPINE, ASPIRIN, METHOTREXATE,METOPROLOL. You may take your prescription pain medications. You may take Tylenol (Acetaminophen) if needed forpain. No Motrin, Ibuprofen, or Advil 24 hours prior to surgery, or longer if instructed by your surgeon. No Aleve or Naprosyn 3 days prior to surgery, or longer if instructed by your surgeon. If you are on ASPIRIN: CONTINUE ASPIRIN. Follow all instructions given to you by Dr. Nguyen You will receive a reminder call the day before surgery with your Same Day Surgery arrival time. If you have specific questions, please call your surgeon. You may use the free bulk clerk parking located at the main entrance on [address] [facility] and take the H elevator to the first floor for same day surgery. Take a left after exiting the elevator and checkin at the desk. * Attachments The following attachments cannot be sent through Care Everywhere. * Hysterectomy: General Info (Tunisian) documented in this encounter* Instructions* Elda Yusuf DO - 03/02/2021 Please follow your post operative care instructions given to you by your Customer Leader Oncologist's office at your pre operative visit. Please call the office with questions or concerns and be sure to follow up at your scheduled post operative visit. * Attachments The following attachments cannot be sent through Care Everywhere. * Hysterectomy: Abdominal: Post-op (Tunisian) documented in this encounter History of Present Illness * Akilah Ly RN - 02/24/2021 11:36 AM EDT Discharge instructions completed. All questions and concerns addressed. * Akilah Ly RN - 02/24/2021 11:15 AM EDT Able to ambulate to restroom and return without difficulty. Changed peripad due to small amount of drainage. documented in this encounter* Preethi Felix RN - 03/02/2021 11:02 AM EDT Patient and daughter given discharge instructions and verbalized understanding. Iv removed. Belongings gathered and given to patient. meds to beds brought medications to bedside. Patient left in stable condition. * Cecelia Robert - 03/02/2021 9:31 AM EDT .Nutrition rescreen completed. Chart reviewed. Patient to be monitored and followed by the diet power technician..NA Thakur * Jolly Garcia RN - 03/02/2021 6:28 AM EDT Pt passed voiding trial with UO of 200 ml. Donohue was discontinued. [id number] was paged. * Elda Yusuf DO - 03/02/2021 5:23 AM EDT Images from the original note were not included. 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 female POD # 2 s/p radical ALYCE, BSO, LND Patient seen and examined. This morning she is a little distressed over experiencing delirium. She reports having interactions that feels so real she has trouble distinguishing what is real and what is not. She did not realize she was in the hospital. She has great insight into the delirium and knows that it will get better once she is able to leave the hospital. She is avoiding narcotics for fear of exacerbating her delirium but pain is controlled. Patient is tolerating oral intake. Her donohue remains in place. She denies any vaginal bleeding. She is ambulating without difficulty. She is passing flatus. She denies Fever/Chills, Chest Pain, SOB, N/V. Vitals: Vitals: 03/01/21 0829 03/01/21 1223 03/01/21 1756 03/02/21 0053 BP: 121/60 100/60 (!) 99/54 (!) 160/82 Pulse: 74 75 71 79 Resp: 20 20 18 18 Temp: 98.7 F (37.1 C) 97.8 F (36.6 C) 98.4 F (36.9 C) 99 F (37.2 C) TempSrc: Temporal Temporal Temporal Temporal SpO2: 97% 98% 96% 99% Weight: Height: Intake/Output: Intake/Output Summary (Last 24 hours) at 03/02/2021 0523 Last data filed at 03/02/2021 0306 Gross per 24 hour Intake 2201 ml Output 3250 ml Net -1049 ml Physical Exam: Gen: NAD, alert and cooperative HEENT: Normocephalic, atraumatic, EOMI, MMM Resp: CTABL, no WRR Card: RRR, no murmur Abd: soft, NT/ND, no rebound, no guarding. Present BS Incisions: C/D/I Pfannenstiel with steri strips Ext: No LE edema, no calf tenderness or swelling Labs: No results found for this or any previous visit (from the past 24 hour(s)).] Assessment/Plan: India Rodriguez 80 y.o. female, POD # 2 s/p radical ALYCE, BSO, LND Post-operative course - Doing well, vitals stable - donohue in place, voiding trial this AM - Encourage ambulation and use of incentive spirometer - Pain controlled - DVT Proph: Lovenox, SCDs - Diet:General - ADAT - Disposition: continue postoperative care. Await results of voiding trial. Could consider d/c thisPM or tomorrow. Delirium - encouraged patient to take a walk with nursing today to get out of room - avoid medications that could exacerbate - anticipate this will improve when discharged Dispo: await results of voiding trial. Anticipate discharge home later today or tomorrow. Final plan to be discussed with Dr. Nguyen. Elda Yusuf DO 03/02/2021, 5:23 AM Associated attestation - Luis Nguyen MD - 03/02/2021 7:10 AM EDT Pt rounded with residents. Doing well. Passed void trial. Plan d/c home, gave bladder perc., home with DVT prophylaxis * Jolly Garcia, MONY - 03/02/2021 1:50 AM EDT Pt is intermittently confused, anxious, and hallucinating. Daughter Virgie stated that patient has history of delirium post surgery that runs for a week. Dr. Herman Negro was notified. * Jolly Garcia RN - 03/01/2021 6:37 AM EDT Low urine output 300 ml during [address] Herman Negro was notified. * Ankit Adams, DO - 03/01/2021 5:50 AM EDT Images from the original note were not included. 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 female POD # 1 s/p Radical ALYCE-BSO, LND Patient seen and examined. She is without complaint this AM. Pain is controlled. Patient is tolerating oral intake. Donohue remains in place. She denies any vaginal bleeding. She is not yet ambulating without difficulty. She is passing flatus. She denies Fever/Chills, Chest Pain, SOB, N/V. Vitals: Vitals: 02/28/21 1745 02/28/21 1916 02/28/21 2144 03/01/21 0130 BP: (!) 126/57 (!) 104/55 (!) 110/58 (!) 94/51 Pulse: 57 60 70 74 Resp: 14 14 16 Temp: 97.1 F (36.2 C) 97.6 F (36.4 C) 98.8 F (37.1 C) 97.9 F (36.6 C) TempSrc: Temporal Temporal Temporal Temporal SpO2: 98% 96% 97% 98% Weight: Height: Intake/Output: Last Shift: @[id number]@ Current Shift: I/O this shift: In: 1275 [P.O.:500; I.V.:775] Out: - Physical Exam: Gen: NAD, alert and cooperative HEENT: Normocephalic, atraumatic, EOMI, MMM Resp: CTABL, no WRR Card: RRR, no murmur Abd: soft, NT/ND, no rebound, no guarding. Present BS Incisions: C/D/I, dressing in place. Ext: No LE edema, no calf tenderness or swelling Medications: Current Facility-Administered Medications Medication Dose Route Frequency Provider Last Rate Last Admin amLODIPine (NORVASC) tablet 2.5 mg 2.5 mg Oral Daily Ankit Adams, DO brimonidine (ALPHAGAN) 0.2 % ophthalmic solution 1 drop 1 drop Both Eyes TID Ankit Adams, DO 1 drop at 02/28/212146 latanoprost (XALATAN) 0.005 % ophthalmic solution 1 drop 1 drop Both Eyes Nightly Ankit Adams, DO 1 drop at 02/28/212146 metoprolol succinate (TOPROL XL) extended release tablet 50 mg 50 mg Oral Daily Ankit Adams, DO sodium chloride flush 0.9 % injection 10 mL 10 mL Intravenous 2 times per day Ankit Wei Adams, DO sodium chloride flush 0.9 % injection 10 mL 10 mL Intravenous PRN [facility] Angie, DO acetaminophen (TYLENOL) tablet 650 mg 650 mg Oral Q4H PRN [facility] Angie, DO oxyCODONE (ROXICODONE) immediate release tablet 5 mg 5 mg Oral Q4H PRN [facility] Angie, DO Or oxyCODONE (ROXICODONE) immediate release tablet 10 mg 10 mg Oral Q4H PRN [facility] Angie, DO HYDROmorphone (DILAUDID) injection 0.25 mg 0.25 mg Intravenous Q3H PRN [facility] Angie, DO Or HYDROmorphone (DILAUDID) injection 0.5 mg 0.5 mg Intravenous Q3H PRN [facility] Angie, DO ketorolac (TORADOL) injection 30 mg 30 mg Intravenous Q6H [facility] Angie, DO 30 mg at 03/01/21 0231 promethazine (PHENERGAN) tablet 12.5 mg 12.5 mg Oral Q6H PRN [facility] Angie, DO Or ondansetron (ZOFRAN) injection 4 mg 4 mg Intravenous Q6H PRN [facility] Angie, DO ceFAZolin (ANCEF) 2000 mg in dextrose 4 % 100 mL IVPB (premix) 2,000 mg Intravenous Q8H Ankit Adams, DO Stopped at 02/28/212147 docusate sodium (COLACE) capsule 100 mg 100 mg Oral BID PRN Ankit Wei Adams, DO Diagnostics: No results found. Labs: Admission on 02/28/2021 Component Date Value Ref Range Status Hemoglobin 03/01/2021 11.1* 11.7 - 16.0 g/dL Final Hematocrit 03/01/2021 33.3* 35.0 - 47.0 % Final Assessment/Plan: India Rodriguez 80 y.o. female POD #1 s/p Radical ALYCE-BSO, LNS Post Operative State - Doing well, vitals stable - continue donohue catheter, plan for fill and spill tomorrow. - Encourage ambulation and use of incentive spirometer - Pain controlled - Labs/Imaging: Hgb 11.1. - DVT Proph:SCDs while in bed, Lovenox to start this AM - Abx: Ancef x2 doses to be completed today. - Diet:General - ADAT - IVF: Hep Lock - Disposition: Continue routine post operative care. Meeting appropriate milestones. Active Problems: Post-operative state Malignant neoplasm of endocervix (HCC) Resolved Problems: * No resolved hospital problems. * Ankit Adams DO 03/01/2021, 5:50 AM Associated attestation - Luis Nguyen MD - 03/01/2021 4:20 PM EDT Patient rounded with the residents. Doing well. Tolerating p.o. Continue postoperative care documented in this encounter Assessments Diagnosis Cytologic evidence of malignancy on smear of cervix Papanicolaou smear of cervix with cytologic evidence of malignancy Diagnosis Post-operative state- Primary Other postprocedural status Malignant neoplasm of endocervix (HCC) Malignant neoplasm of endocervix Additional Source Comments INFORMATION SOURCE (unrecogn ized section and content) DATE CREATED AUTHOR AUTHOR'S ORGANIZ ATION 03/11/2021 [facility] DATE CREATED AUTHOR AUTHOR'S ORGANIZ ATION 09/02/2022 [facility] DATE CREATED AUTHOR AUTHOR'S ORGANIZ ATION 05/13/2023 [facility] DATE CREATED AUTHOR AUTHOR'S ORGANIZ ATION 09/10/2023 [facility] [employer] [facility] Ordered Prescriptions (unrec ognized section and content) Source Comments (unrecognize d section and content) In the event this informatio n is protected by the Federal Confidentiality of Alcohol and Drug Abuse Patient Records regulations: The Federal rules restrict any use of the information to criminally investigate or prosecute any alcohol or drug abuse patient.[facility] Hospital[facility] the event this information is protected by the Federal Confidentiality of Alcohol and Drug Abuse Patient Records regulations: The Federal rules restrict any use of the information to criminally investigate or prosecute any alcohol or drug abuse patient.[facility] HospitalIn the event this information is protected by the Federal Confidentiality of Alcohol and Drug Abuse Patient Records regulations: The Federal rules restrict any use of the information to criminally investigate or prosecute any alcohol or drug abuse patient.[facility] HospitalIn the event this information is protected by the Federal Confidentiality of Alcohol and Drug Abuse Patient Records regulations: The Federal rules restrict any use of the information to criminally investigate or prosecute any alcohol or drug abuse patient.[facility] HospitalIn the event this information is protected by the Federal Confidentiality of Alcohol and Drug Abuse Patient Records regulations: The Federal rules restrict any use of the information to criminally investigate or prosecute any alcohol or drug abuse patient.[facility] HospitalIn the event this information is protected by the Federal Confidentiality of Alcohol and Drug Abuse Patient Records regulations: The Federal rules restrict any use of the information to criminally investigate or prosecute any alcohol or drug abuse patient.[facility] HospitalIn the event this information is protected by the Federal Confidentiality of Alcohol and Drug Abuse Patient Records regulations: The Federal rules restrict any use of the information to criminally investigate or prosecute any alcohol or drug abuse patient.[facility] HospitalIn the event this information is protected by the Federal Confidentiality of Alcohol and Drug Abuse Patient Records regulations: The Federal rules restrict any use of the information to criminally investigate or prosecute any alcohol or drug abuse patient.[facility] HospitalIn the event this information is protected by the Federal Confidentiality of Alcohol and Drug Abuse Patient Records regulations: The Federal rules restrict any use of the information to criminally investigate or prosecute any alcohol or drug abuse patient.[facility] HospitalIn the event this information is protected by the Federal Confidentiality of Alcohol and Drug Abuse Patient Records regulations: The Federal rules restrict any use of the information to criminally investigate or prosecute any alcohol or drug abuse patient.[facility] HospitalIn the event this information is protected by the Federal Confidentiality of Alcohol and Drug Abuse Patient Records regulations: The Federal rules restrict any use of the information to criminally investigate or prosecute any alcohol or drug abuse patient.[facility] HospitalIn the event this information is protected by the Federal Confidentiality of Alcohol and Drug Abuse Patient Records regulations: The Federal rules restrict any use of the information to criminally investigate or prosecute any alcohol or drug abuse patient.[facility] HospitalIn the event this information is protected by the Federal Confidentiality of Alcohol and Drug Abuse Patient Records regulations: The Federal rules restrict any use of the information to criminally investigate or prosecute any alcohol or drug abuse patient.[facility] HospitalIn the event this information is protected by the Federal Confidentiality of Alcohol and Drug Abuse Patient Records regulations: The Federal rules restrict any use of the information to criminally investigate or prosecute any alcohol or drug abuse patient.[facility] HospitalIn the event this information is protected by the Federal Confidentiality of Alcohol and Drug Abuse Patient Records regulations: The Federal rules restrict any use of the information to criminally investigate or prosecute any alcohol or drug abuse patient.[facility] HospitalIn the event this information is protected by the Federal Confidentiality of Alcohol and Drug Abuse Patient Records regulations: The Federal rules restrict any use of the information to criminally investigate or prosecute any alcohol or drug abuse patient.[facility] HospitalIn the event this information is protected by the Federal Confidentiality of Alcohol and Drug Abuse Patient Records regulations: The Federal rules restrict any use of the information to criminally investigate or prosecute any alcohol or drug abuse patient.[facility] Reason for Visit (unrecogniz ed section and content) Reason Comments Established Patient Reason Comments Patient Question Reason Comments Patient Question She tested Covid + o n 07/12/2022. But is OK to come in the office by 07/24/22 if she is asymptomatic (which she is) Reason Comments Established Patient Reason Comments Established Patient Reason Comments Follow-up Pt has no concerns. 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 Start Date End Date Rosita Lentz [address] [place] [address] PCP - General Family Practice 06/11/22 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 Start Date End Date Rosita Lentz [place] [address] PCP - General Family Practice 06/11/22 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 Start Date End Date Rosita Lentz [place] [address] PCP - General Family Practice 06/11/22 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 Start Date End Date Rosita Lentz [place] [address] PCP - General Family Practice 06/11/22 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 Start Date End Date Rosita Lentz [place] [address] PCP - General Family Practice 06/11/22 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 Start Date End Date Rosita Lentz [place] [address] PCP - General Family Medicine 06/11/22 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 Start Date End Date Rosita Lentz [place] [address] PCP - General Family Medicine 06/11/22 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 Start Date End Date Rosita Lentz [place] [address] PCP - General Family Medicine 06/11/22 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 Start Date End Date MiedRosita moore [address] [place], [place] [phone] PCP - General Family Medicine 06/11/22 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 Start Date End Date Rosita Lentz Pipre [address] [place], [place] [address] PCP - General Family Medicine 06/11/22 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 Start Date End Date Feliz Lentzherminio Saldaña [address] [place], [place] [id number] PCP - General Family Medicine 06/11/22 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 Start Date End Date Rosita Lentz MD [address] [place] [phone] PCP - General 02/16/21 Luis Nguyen MD [address] [place] [address], [address] [place] [address] Consulting Physician Gynecologic Oncology 10/19/22 Lauren Mcallister, FISH TECHNOLOGIST - UPS DRIVER [address] [facility] [address] [place] [address] Nurse Practitioner Certified Nurse Practitioner 03/05/23 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 Start Date End Date Rosita Lentz MD [address] [place] [phone] PCP - General 02/16/21 Luis Nguyen MD [address] [facility], [address] [place] [address] Consulting Physician Gynecologic Oncology 10/19/22 Lauren Mcallister, FISH TECHNOLOGIST - UPS DRIVER [address] [facility] [address] [place] [address] Nurse Practitioner Certified Nurse Practitioner 03/05/23 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 This clinical summary was aggregated from multiple sources. Caution should be exercised in using it in the provision of clinical care. This summary normalizes information from multiple sources, and as a consequence, information in this document may materially change the coding, format and clinical context of patient data. In addition, data may be omitted in some cases. CLINICAL DECISIONS SHOULD BE BASED ON THE PRIMARY CLINICAL RECORDS. [facility] [employer] [facility]. provides no warranty or guarantee of the accuracy or completeness of information in this document.
[2023-12-24 15:58] LABS: Absolute Lymphocyte Count 0.55 X10^3/uL (0.83-4.51); Absolute Neutrophil Count 4.6 X10^3/uL (2.0-7.7); Basophil# 0.03 X10^3/uL; Basophil% 0.5 % (0-1); Eosinophil# 0.15 X10^3/uL; Eosinophils% 2.6 % (0-5); Hematocrit 39.3 % (37-47); Hemoglobin 12.6 g/dL (12.0-15.0); Lymphocyte # 0.55 X10^3/ul (0.83-4.51); Lymphocyte % 9.5 % (19-41); Mean Corp Hgb Conc 32.1 g/dL (32-36); Mean Corpuscular Hgb 32.3 pg (27.0-32.0); Mean Corpuscular Volume 100.8 fL (81-99); Mean Platelet Vol. 10.2 fl (6.2-12.0); Monocyte# 0.47 X10^3/uL; Monocyte% 8.1 % (0-10); NRBC Flagged by Analyzer 0 % (0-5); Neutrophil # 4.59 X10^3/uL (2.7-7.7); POSITIVE DIFFERENTIAL YES; Platelet Count 194 K/mm3 (150-450); RBC Distribution Width CV 12.7 % (11.6-14.6); RBC Distribution Width SD 47.1 fl (35.1-43.9); White Blood Count 5.8 K/mm3 (4.4-11.0)
[2023-12-24 16:17] LABS: Differential Indicated SCAN CRITERIA MET
[2023-12-24 16:25] LABS: ALB/GLOB Ratio 1.1 RATIO (0.9-2.4); AST(SGOT) 27 U/L (15-37); Alanine Aminotransfer ALT/SGPT 27 U/L (13-56); Albumin, Serum 3.3 g/dL (3.2-5.0); Alkaline Phosphatase 60 U/L (45-117); Anion Gap 4 (5-15); BUN 15 mg/dL (7-18); BUN/Creat Ratio 20.2 RATIO (10-20); Calcium,Total 9.1 mg/dL (8.5-10.1); Chloride 109 mmol/L (98-107); Creatinine, Serum 0.74 mg/dL (0.55-1.02); EST Glomerular Filtration Rate 80 mL/min (>60); Est Glom Filt Rate - Afr Amer 96 mL/min (>60); Glucose 104 mg/dL (74-106); Potassium 3.5 mmol/L (3.5-5.1); Protein, Total 6.3 g/dL (6.4-8.2); Sodium Level 142 mmol/L (136-145)
[2023-12-24 17:06] LABS: Anisocytosis 1+; Macrocytosis 1+; Ovalocyte RARE; Platelet Estimate ADEQUATE (ADEQ); Red Cell Morphology N CHROM NORMAL (NORM C&C)
== END | disposition home or self-care (01) ==
LOC: MTLAB 13:16
PROVIDERS: PCP Family Medicine; Referring Provider Internal Medicine Rheumatology; Visit Provider Internal Medicine Rheumatology
DX: H20.9 Unspecified iridocyclitis (principal); Z79.899 Other long term (current) drug therapy
CPT/HCPCS: 36415; 80053; 85025

== ENCOUNTER → 2024-03-16 | Outpatient (CLI) | payer MEDICARE, OTHER, SELFPAY ==
[2024-03-16 10:24] LABS: Absolute Neutrophil Count 6.4 X10^3/uL (2.0-7.7); Basophil# 0.06 X10^3/uL; Basophil% 0.8 % (0-1); Eosinophil# 0.17 X10^3/uL; Eosinophils% 2.2 % (0-5); Hemoglobin 13.2 g/dL (12.0-15.0); Lymphocyte % 7.6 % (19-41); Mean Corp Hgb Conc 31.4 g/dL (32-36); Mean Corpuscular Hgb 31.9 pg (27.0-32.0); Mean Corpuscular Volume 101.4 fL (81-99); Mean Platelet Vol. 9.9 fl (6.2-12.0); Monocyte# 0.59 X10^3/uL; Monocyte% 7.5 % (0-10); NRBC Flagged by Analyzer 0 % (0-5); Neutrophil # 6.39 X10^3/uL (2.7-7.7); Neutrophil % 81.1 % (47-70); POSITIVE DIFFERENTIAL YES; Platelet Count 208 K/mm3 (150-450); RBC Distribution Width CV 12.8 % (11.6-14.6); RBC Distribution Width SD 47.4 fl (35.1-43.9); Red Blood Count 4.14 M/mm3 (4.2-5.4); White Blood Count 7.9 K/mm3 (4.4-11.0)
[2024-03-16 11:04] LABS: AST(SGOT) 28 U/L (15-37); Alanine Aminotransfer ALT/SGPT 25 U/L (13-56); Albumin, Serum 3.2 g/dL (3.2-5.0); Alkaline Phosphatase 73 U/L (45-117); Anion Gap 3 (5-15); BUN 16 mg/dL (7-18); BUN/Creat Ratio 19.5 RATIO (10-20); Calcium,Total 9.1 mg/dL (8.5-10.1); Chloride 110 mmol/L (98-107); Creatinine, Serum 0.82 mg/dL (0.55-1.02); EST Glomerular Filtration Rate 71 mL/min (>60); Est Glom Filt Rate - Afr Amer 86 mL/min (>60); Globulin 3.1 g/dL (2.2-4.2); Glucose 110 mg/dL (74-106); Potassium 3.5 mmol/L (3.5-5.1); Protein, Total 6.3 g/dL (6.4-8.2); Sodium Level 142 mmol/L (136-145)
== END | disposition home or self-care (01) ==
LOC: MTLAB 08:59
PROVIDERS: PCP Family Medicine; Referring Provider Internal Medicine Rheumatology; Visit Provider Internal Medicine Rheumatology
DX: H20.9 Unspecified iridocyclitis (principal); Z79.899 Other long term (current) drug therapy; H35.063 Retinal vasculitis, bilateral; M18.0 Bilateral primary osteoarthritis of first carpometacarpal joints; M17.0 Bilateral primary osteoarthritis of knee
CPT/HCPCS: 36415; 80053; 85025

== ENCOUNTER → 2024-06-02 | Outpatient (CLI) | payer MEDICARE, OTHER, SELFPAY ==
--- NOTE | 2024-06-02 15:22 | RAD_ITS ---
EXAM: XR LEFT FOOT COMPLETE, 3 OR MORE VIEWS CLINICAL INDICATION: PAIN TECHNIQUE: Frontal, lateral and oblique views of the left foot. COMPARISON: No relevant prior studies available. FINDINGS: BONES/JOINTS: No acute abnormality. SOFT TISSUES: Normal. No soft tissue swelling or gas. No radiopaque foreign body. RAD/Foot min 3 Views IMPRESSION: Intact left foot. Electronically Signed: Jairon Thomas MD at 17:09 EDT ,
== END | disposition home or self-care (01) ==
LOC: MTRAD 15:21
PROVIDERS: PCP Family Medicine; Referring Provider Family Medicine; Visit Provider Family Medicine
DX: M79.672 Pain in left foot (principal)
CPT/HCPCS: 73630

== ENCOUNTER → 2024-06-09 | Outpatient (CLI) | payer MEDICARE, OTHER, SELFPAY ==
[2024-06-09 10:00] LABS: Absolute Lymphocyte Count 0.57 X10^3/uL (0.83-4.51); Absolute Neutrophil Count 4.5 X10^3/uL (2.0-7.7); Basophil# 0.03 X10^3/uL; Basophil% 0.5 % (0-1); Eosinophil# 0.19 X10^3/uL; Eosinophils% 3.3 % (0-5); Hematocrit 41.1 % (37-47); Hemoglobin 13.2 g/dL (12.0-15.0); Lymphocyte # 0.57 X10^3/ul (0.83-4.51); Lymphocyte % 9.8 % (19-41); Mean Corp Hgb Conc 32.1 g/dL (32-36); Mean Corpuscular Hgb 32.7 pg (27.0-32.0); Mean Corpuscular Volume 101.7 fL (81-99); Mean Platelet Vol. 10.1 fl (6.2-12.0); Monocyte# 0.44 X10^3/uL; Monocyte% 7.6 % (0-10); NRBC Flagged by Analyzer 0 % (0-5); Neutrophil # 4.54 X10^3/uL (2.7-7.7); Neutrophil % 78.5 % (47-70); POSITIVE DIFFERENTIAL YES; Platelet Count 195 K/mm3 (150-450); RBC Distribution Width CV 12.5 % (11.6-14.6); RBC Distribution Width SD 46.5 fl (35.1-43.9); Red Blood Count 4.04 M/mm3 (4.2-5.4); White Blood Count 5.8 K/mm3 (4.4-11.0)
[2024-06-09 10:39] LABS: ALB/GLOB Ratio 1.1 RATIO (0.9-2.4); AST(SGOT) 28 U/L (15-37); Alanine Aminotransfer ALT/SGPT 28 U/L (13-56); Albumin, Serum 3.3 g/dL (3.2-5.0); Alkaline Phosphatase 73 U/L (45-117); Anion Gap 7 (5-15); BUN 14 mg/dL (7-18); BUN/Creat Ratio 17.4 RATIO (10-20); Calcium,Total 9.2 mg/dL (8.5-10.1); Chloride 108 mmol/L (98-107); EST Glomerular Filtration Rate 73 mL/min (>60); Est Glom Filt Rate - Afr Amer 88 mL/min (>60); Glucose 98 mg/dL (74-106); Potassium 3.8 mmol/L (3.5-5.1); Protein, Total 6.3 g/dL (6.4-8.2); Sodium Level 141 mmol/L (136-145)
== END | disposition home or self-care (01) ==
LOC: MTLAB 08:31
PROVIDERS: PCP Family Medicine; Referring Provider Internal Medicine Rheumatology; Visit Provider Internal Medicine Rheumatology
DX: H20.9 Unspecified iridocyclitis (principal); Z79.899 Other long term (current) drug therapy
CPT/HCPCS: 36415; 80053; 85025

== ENCOUNTER → 2024-09-01 | Outpatient (CLI) | payer MEDICARE, OTHER, SELFPAY ==
[2024-09-01 12:12] LABS: Absolute Lymphocyte Count 0.71 X10^3/uL (0.83-4.51); Absolute Neutrophil Count 5.3 X10^3/uL (2.0-7.7); Basophil# 0.03 X10^3/uL; Basophil% 0.5 % (0-1); Eosinophil# 0.14 X10^3/uL; Eosinophils% 2.1 % (0-5); Hematocrit 42.1 % (37-47); Hemoglobin 13.6 g/dL (12.0-15.0); Lymphocyte # 0.71 X10^3/ul (0.83-4.51); Lymphocyte % 10.7 % (19-41); Mean Corp Hgb Conc 32.3 g/dL (32-36); Mean Corpuscular Hgb 32.6 pg (27.0-32.0); Mean Platelet Vol. 10.6 fl (6.2-12.0); Monocyte# 0.44 X10^3/uL; Monocyte% 6.6 % (0-10); NRBC Flagged by Analyzer 0 % (0-5); Neutrophil # 5.29 X10^3/uL (2.7-7.7); Neutrophil % 79.6 % (47-70); Platelet Count 210 K/mm3 (150-450); RBC Distribution Width CV 12.9 % (11.6-14.6); RBC Distribution Width SD 47.1 fl (35.1-43.9); Red Blood Count 4.17 M/mm3 (4.2-5.4); White Blood Count 6.6 K/mm3 (4.4-11.0)
[2024-09-01 12:53] LABS: AST(SGOT) 30 U/L (15-37); Alanine Aminotransfer ALT/SGPT 27 U/L (13-56); Albumin, Serum 3.4 g/dL (3.2-5.0); Alkaline Phosphatase 81 U/L (45-117); Anion Gap 6 (5-15); BUN 17 mg/dL (7-18); BUN/Creat Ratio 20.9 RATIO (10-20); Calcium,Total 9.5 mg/dL (8.5-10.1); Chloride 109 mmol/L (98-107); Creatinine, Serum 0.82 mg/dL (0.55-1.02); EST Glomerular Filtration Rate 71 mL/min (>60); Est Glom Filt Rate - Afr Amer 86 mL/min (>60); Globulin 3.3 g/dL (2.2-4.2); Glucose 114 mg/dL (74-106); Potassium 3.7 mmol/L (3.5-5.1); Protein, Total 6.7 g/dL (6.4-8.2); Sodium Level 142 mmol/L (136-145)
== END | disposition home or self-care (01) ==
LOC: MTLAB 09:45
PROVIDERS: PCP Family Medicine; Referring Provider Internal Medicine Rheumatology; Visit Provider Internal Medicine Rheumatology
DX: H20.9 Unspecified iridocyclitis (principal); Z79.899 Other long term (current) drug therapy
CPT/HCPCS: 36415; 80053; 85025

== ENCOUNTER → 2024-11-26 | Outpatient (CLI) | payer MEDICARE, OTHER, SELFPAY ==
[2024-11-26 10:13] LABS: Absolute Lymphocyte Count 0.44 X10^3/uL (0.83-4.51); Absolute Neutrophil Count 5.6 X10^3/uL (2.0-7.7); Basophil# 0.03 X10^3/uL; Basophil% 0.4 % (0-1); Eosinophil# 0.11 X10^3/uL; Eosinophils% 1.6 % (0-5); Hematocrit 40.5 % (37-47); Lymphocyte # 0.44 X10^3/ul (0.83-4.51); Lymphocyte % 6.6 % (19-41); Mean Corp Hgb Conc 32.1 g/dL (32-36); Mean Corpuscular Volume 102.8 fL (81-99); Mean Platelet Vol. 10.1 fl (6.2-12.0); Monocyte# 0.44 X10^3/uL; Monocyte% 6.6 % (0-10); NRBC Flagged by Analyzer 0 % (0-5); Neutrophil # 5.62 X10^3/uL (2.7-7.7); Neutrophil % 84.4 % (47-70); POSITIVE DIFFERENTIAL YES; Platelet Count 217 K/mm3 (150-450); RBC Distribution Width CV 12.5 % (11.6-14.6); RBC Distribution Width SD 47.2 fl (35.1-43.9); Red Blood Count 3.94 M/mm3 (4.2-5.4); White Blood Count 6.7 K/mm3 (4.4-11.0)
[2024-11-26 10:56] LABS: AST(SGOT) 34 U/L (15-37); Alanine Aminotransfer ALT/SGPT 28 U/L (13-56); Albumin, Serum 3.2 g/dL (3.2-5.0); Alkaline Phosphatase 86 U/L (45-117); Anion Gap 6 (5-15); BUN 17 mg/dL (7-18); BUN/Creat Ratio 23.6 RATIO (10-20); Chloride 109 mmol/L (98-107); Creatinine, Serum 0.72 mg/dL (0.55-1.02); EST Glomerular Filtration Rate 82 mL/min (>60); Est Glom Filt Rate - Afr Amer 99 mL/min (>60); Globulin 3.1 g/dL (2.2-4.2); Glucose 141 mg/dL (74-106); Potassium 3.6 mmol/L (3.5-5.1); Protein, Total 6.3 g/dL (6.4-8.2); Sodium Level 143 mmol/L (136-145)
== END | disposition home or self-care (01) ==
LOC: MTLAB 08:57
PROVIDERS: PCP Family Medicine; Referring Provider Internal Medicine Rheumatology; Visit Provider Internal Medicine Rheumatology
DX: H20.9 Unspecified iridocyclitis (principal); H35.063 Retinal vasculitis, bilateral; H40.9 Unspecified glaucoma; Z79.899 Other long term (current) drug therapy
CPT/HCPCS: 36415; 80053; 85025

== ENCOUNTER → 2025-02-15 | Outpatient (CLI) | payer MEDICARE, OTHER, SELFPAY ==
[2025-02-15 10:50] LABS: Absolute Lymphocyte Count 0.64 X10^3/uL (0.83-4.51); Absolute Neutrophil Count 4.9 X10^3/uL (2.0-7.7); Basophil# 0.06 X10^3/uL; Basophil% 0.9 % (0-1); Eosinophil# 0.24 X10^3/uL; Eosinophils% 3.7 % (0-5); Hematocrit 40.3 % (37-47); Hemoglobin 12.8 g/dL (12.0-15.0); Lymphocyte # 0.64 X10^3/ul (0.83-4.51); Lymphocyte % 9.9 % (19-41); Mean Corp Hgb Conc 31.8 g/dL (32-36); Mean Corpuscular Hgb 32.9 pg (27.0-32.0); Mean Corpuscular Volume 103.6 fL (81-99); Mean Platelet Vol. 10.4 fl (6.2-12.0); Monocyte# 0.62 X10^3/uL; Monocyte% 9.6 % (0-10); NRBC Flagged by Analyzer 0 % (0-5); Neutrophil % 75.4 % (47-70); Platelet Count 205 K/mm3 (150-450); RBC Distribution Width SD 48.1 fl (35.1-43.9); Red Blood Count 3.89 M/mm3 (4.2-5.4); White Blood Count 6.5 K/mm3 (4.4-11.0)
[2025-02-15 12:59] LABS: ALB/GLOB Ratio 1.7 RATIO (0.9-2.4); AST(SGOT) 30 U/L (<=31); Alanine Aminotransfer ALT/SGPT 20 U/L (<=34); Albumin, Serum 3.9 g/dL (3.4-4.8); Alkaline Phosphatase 77 U/L (35-104); Anion Gap 9 (5-15); BUN 14 mg/dL (4-19); BUN/Creat Ratio 17.8 RATIO (10-20); Calcium,Total 9.6 mg/dL (7.6-11.0); Carbon Dioxide 26.5 mmol/L (21.0-32.0); Chloride 106 mmol/L (98-108); EST Glomerular Filtration Rate 73 (>60); Globulin 2.3 g/dL (2.2-4.2); Glucose 103 mg/dL (70-99); Potassium 3.7 mmol/L (3.3-5.1); Protein, Total 6.3 g/dL (5.9-8.4); Sodium Level 142 mmol/L (133-145); Total Bilirubin 0.31 mg/dL (0.00-1.30)
== END | disposition home or self-care (01) ==
LOC: MTLAB 08:56
PROVIDERS: PCP Family Medicine; Referring Provider Internal Medicine Rheumatology; Visit Provider Internal Medicine Rheumatology
DX: H20.9 Unspecified iridocyclitis (principal); Z79.899 Other long term (current) drug therapy
CPT/HCPCS: 36415; 80053; 85025

== ENCOUNTER 2025-03-23 12:33 | Emergency (ER) | payer MEDICARE, OTHER, SELFPAY ==
[2025-03-23 12:34] VITALS: BP 183/103; PULSE 94; RESP 16; TEMP 36.3; O2SAT 99; BMI 20.3
--- NOTE | 2025-03-23 12:49 | ED.VIS.FALL ---
HPI HPI - Fall History of Present Illness Chief Complaint: Fall Informant: patient Occured/Mechanism Occurred: Today Fall down steps #: 2 Pain/Injury Location: Right occipital scalp Pain Location: head Quality of Pain: Dull Worsened by: Palpation Relieved by: Nothing Associated Symptoms Associated Symptoms: Negative for Parasthesias, Weakness, Loss of function, Inability to ambulate, Loss of consciousness or Amnesia Narrative Narrative: Patient presents after a fall that occurred today. Patient states she fell down 2 steps and hit the back of her head. Patient states she just lost her balance when the neighbor children waved to her and she tried to wait back to them. The patient denies any nausea or vomiting. Patient denies any visual changes. Patient states she has some swelling over the right occipital scalp. Patient states this has improved. Patient states she went to the urgent care and was referred to the emergency department. [facility] Medical History Mitral valve disease Fracture of spine Precancerous skin lesion Pap smear abnormality of cervix Pneumonia sensitive to anesthesia Migraines Broken arm Hypertension Glaucoma Uveitis Vasculitis Cervical cancer Home Medications ?Medication ?Instructions ?Recorded ?Last Taken ?Type folic acid 1 mg tablet 1 mg PO DAILY@0800 10/18/16 10/18/16 History methotrexate sodium 2.5 mg tablet 15 mg PO QWEEK 10/18/16 10/16/16 History metoprolol succinate 50 mg 50 mg PO DAILY 10/18/16 10/18/16 History tablet,extended release 24 hr multivitamin (Multiple Vitamins 1 ea PO DAILY 06/01/18 Unknown History tablet) acetaminophen 500 mg tablet 1,000 mg PO Q6H PRN Pain 1-10 Or 03/20/21 Unknown History Fever amlodipine 2.5 mg tablet 2.5 mg PO DAILY 03/20/21 Unknown History brimonidine 0.2 % eye drops 1 drp RIGHT EYE BID 03/20/21 Unknown History latanoprost 0.005 % eye drops 1 drp RIGHT EYE QHS 03/20/21 Unknown History loperamide 2 mg capsule 2 mg PO DAILY 06/11/22 Unknown History leucovorin calcium 15 mg tablet PO 03/23/25 Unknown History Allergy/AdvReac Type Severity Reaction Status Date / Time codeine AdvReac Mild Severe Verified 03/23/25 12:36 headaches ibuprofen AdvReac Nausea Verified 03/23/25 12:36 Opioids - Morphine Analogues AdvReac Severe Verified 03/23/25 12:36 headaches simvastatin AdvReac Muscle Verified 03/23/25 12:36 weakness Family History Father CHF (congestive heart failure) Immune disorder Mother CHF (congestive heart failure) CLL (chronic lymphocytic leukemia) Surgical History History of dilation and curettage History of left knee replacement S/P hysterectomy Social History Smoking Status: Never smoker ROS ROS ED Constitutional Constitutional ED: Denies chills or fever(s) Eyes Eyes: Denies blurry vision or change in vision ENT ENT ED: Denies rhinorrhea or sore throat Cardiovascular Cardiovascular: Denies chest pain or palpitations Respiratory/Chest Respiratory/Chest: Denies cough or dyspnea Gastrointestinal Gastrointestinal: Denies nausea or vomiting Genitourinary Genitourinary ED: Denies dysuria or hematuria Musculoskeletal Musculoskeletal: Denies back pain or neck pain Integumentary Denies abscess or rash Neurologic Neurologic: Reports headache(s); Denies weakness Allergic/Immunologic Allergic/Immunologic ED: Denies mouth swelling or urticaria EXAM Physical Exam Const Vital Signs: 03/23/25 12:34 03/23/25 12:39 Temperature 97.4 F L Temperature Source Oral Pulse Rate 94 Respiratory Rate 16 Respiratory Effort Normal Blood Pressure 183/103 H Blood Pressure Mean 129 Pulse Ox 99 Oxygen Delivery Method Room Air Positive well nourished and well developed General Appearance ED: well developed and NAD HEENT HEENT Narrative: There is a small hematoma over the right occipital scalp. There is mild tenderness to palpation. No bony crepitance or step-off noted. hematoma Eyes PERRL and EOMs intact bilaterally Neck full ROM and supple Neuro oriented x3, CN's II-XII intact bilaterally, moves all extremities, no focal motor deficits and no sensory deficits noted [place] Coma Scale: document GCS findings Spontaneous Obeys Commands Oriented 15 Sensorium / Orientation: alert Motor Exam: strength 5/5 throughout Psych mental status grossly normal and thought process normal MDM MDM MDM Narrative Medical decision making narrative: Patient was advised that I do not feel CT scan of the head is necessary at this time. Patient has not had any changes in her vision. Patient has not had any nausea or vomiting. Patient did not have any loss of consciousness. Patient is not on any anticoagulants. Patient has normal neurologic exam. Patient was given head injury instructions. Patient was instructed to use ice to the right occipital scalp. Patient was instructed to take Tylenol as needed for pain. Patient was instructed to follow-up with her primary care physician in 5 to 7 days. Patient understood and was agreeable with the plan. All questions were answered. Discharge Plan Triage Chief Complaint: Fall ED Provider: Onel Westbrook Dx/Rx/DC Orders Clinical Impression: Closed head injury, Hematoma of occipital region of scalp, Fall Instructions: ED Head Injury (Adult) Prescriptions: No Action metoprolol succinate 50 MG tablet 50 mg PO DAILY methotrexate sodium 2.5 MG tablet 15 mg PO QWEEK Rx Instructions: on Tuesdays folic acid 1 MG tablet 1 mg PO DAILY@0800 multivitamin [Multiple Vitamins] 1 EACH tablet 1 ea PO DAILY latanoprost 1 DRP bottle 1 drp RIGHT EYE QHS amlodipine 2.5 MG tablet 2.5 mg PO DAILY acetaminophen 500 MG tablet 1,000 mg PO Q6H PRN (Reason: Pain 1-10 Or Fever) brimonidine 1 DRP bottle 1 drp RIGHT EYE BID loperamide [Imodium] 2 mg Capsule 2 mg PO DAILY Rx Instructions: administer after each loose stool until symptoms controlled; do not exceed 8 mg per 24 hrs Primary Care Provider: Rosita Lentz Referrals: Rosita Lentz MD [Primary Care Provider] - 5-7 Days Print Language: Tamazight Disposition Disposition: Home, Self Care
== END 2025-03-23 13:29 | disposition home or self-care (01) ==
PROVIDERS: Emergency Provider Emergency Medicine; PCP Family Medicine; Visit Provider Emergency Medicine
DX: S09.90XA Unspecified injury of head, initial encounter (principal); S00.03XA Contusion of scalp, initial encounter; I10 Essential (primary) hypertension; W10.9XXA Fall (on) (from) unspecified stairs and steps, initial encounter
CPT/HCPCS: 99282

== ENCOUNTER → 2025-04-05 | Outpatient (CLI) | payer MEDICARE, OTHER, SELFPAY ==
--- NOTE | 2025-04-05 13:15 | RAD_ITS ---
PROCEDURE: ABD INC DECUB AND/OR ERECT 04/05/2025 REASON FOR EXAM: ABDOMINAL PAIN TECHNIQUE: Two frontal views of the abdomen. COMPARISON: CT of the abdomen and pelvis with IV contrast dated 03/05/2021. FINDINGS: The cardiac silhouette is prominent. There are no large effusions at the lung bases. Moderate amount of stool seen within the colon. No bowel obstruction. S shaped scoliosis is present. Degenerative changes seen within the spine. Moderate degenerative narrowing seen within the bilateral hip joints. Osteitis pubis is present. RAD/Abd Inc Decub and/or Erect IMPRESSION: Limited examination. If patient continues to experience pain, consider cross-s ectional imaging. Degenerative changes within the spine and bilateral hips. Reading Location: [id number]
[2025-04-05 16:06] LABS: Color, Urine Straw (Yellow); Glucose, Dipstick Normal (Normal); Ketone-Dipstick Negative (Negative); Leukocyte Esterase-Dipstick 25 /ul (Negative); Nitrite-Dipstick Negative (Negative); Occult Blood-Urine Negative /ul (Negative); Protein-Dipstick Negative (Negative); Urine Bilirubin Dipstick Negative (Negative); Urine Clarity Clear (Clear); Urine Urobilinogen Normal (Normal); Urine pH 6.5 (5.0 - 8.0)
[2025-04-05 16:08] LABS: Absolute Lymphocyte Count 0.81 X10^3/uL (0.83-4.51); Absolute Neutrophil Count 7.2 X10^3/uL (2.0-7.7); Basophil# 0.05 X10^3/uL; Basophil% 0.6 % (0-1); Eosinophil# 0.12 X10^3/uL; Eosinophils% 1.4 % (0-5); Hematocrit 42.3 % (37-47); Hemoglobin 14.1 g/dL (12.0-15.0); Lymphocyte # 0.81 X10^3/ul (0.83-4.51); Lymphocyte % 9.3 % (19-41); Mean Corp Hgb Conc 33.3 g/dL (32-36); Mean Corpuscular Volume 99.1 fL (81-99); Monocyte# 0.54 X10^3/uL; Monocyte% 6.2 % (0-10); NRBC Flagged by Analyzer 0 % (0-5); Neutrophil # 7.16 X10^3/uL (2.7-7.7); Platelet Count 263 K/mm3 (150-450); RBC Distribution Width CV 12.6 % (11.6-14.6); RBC Distribution Width SD 45.3 fl (35.1-43.9); Red Blood Count 4.27 M/mm3 (4.2-5.4); White Blood Count 8.7 K/mm3 (4.4-11.0)
== END | disposition home or self-care (01) ==
LOC: MTLAB 13:14
PROVIDERS: PCP Family Medicine; Referring Provider Family Medicine; Visit Provider Family Medicine
DX: R10.9 Unspecified abdominal pain (principal)
CPT/HCPCS: 36415; 74019; 81002; 85025; 87086; 87088

== ENCOUNTER → 2025-05-10 | Outpatient (CLI) | payer MEDICARE, OTHER, SELFPAY ==
[2025-05-10 10:00] LABS: Absolute Lymphocyte Count 0.59 X10^3/uL (0.83-4.51); Absolute Neutrophil Count 4.4 X10^3/uL (2.0-7.7); Basophil# 0.05 X10^3/uL; Basophil% 0.9 % (0-1); Eosinophil# 0.13 X10^3/uL; Eosinophils% 2.3 % (0-5); Hematocrit 39.3 % (37-47); Hemoglobin 13.1 g/dL (12.0-15.0); Lymphocyte # 0.59 X10^3/ul (0.83-4.51); Lymphocyte % 10.3 % (19-41); Mean Corp Hgb Conc 33.3 g/dL (32-36); Mean Corpuscular Hgb 33.5 pg (27.0-32.0); Mean Corpuscular Volume 100.5 fL (81-99); Mean Platelet Vol. 9.8 fl (6.2-12.0); Monocyte# 0.56 X10^3/uL; Monocyte% 9.8 % (0-10); NRBC Flagged by Analyzer 0 % (0-5); Neutrophil # 4.38 X10^3/uL (2.7-7.7); Neutrophil % 76.2 % (47-70); POSITIVE DIFFERENTIAL YES; Platelet Count 198 K/mm3 (150-450); RBC Distribution Width CV 12.9 % (11.6-14.6); RBC Distribution Width SD 46.5 fl (35.1-43.9); Red Blood Count 3.91 M/mm3 (4.2-5.4); White Blood Count 5.7 K/mm3 (4.4-11.0)
[2025-05-10 10:31] LABS: ALB/GLOB Ratio 1.7 RATIO (0.9-2.4); AST(SGOT) 31 U/L (<=31); Alanine Aminotransfer ALT/SGPT 21 U/L (<=34); Albumin, Serum 3.9 g/dL (3.4-4.8); Alkaline Phosphatase 86 U/L (35-104); Anion Gap 10 (5-15); BUN 15 mg/dL (4-19); BUN/Creat Ratio 19.6 RATIO (10-20); Calcium,Total 9.7 mg/dL (7.6-11.0); Carbon Dioxide 25.8 mmol/L (21.0-32.0); Chloride 106 mmol/L (98-108); Creatinine, Serum 0.76 mg/dL (0.70-1.20); EST Glomerular Filtration Rate 78 (>60); Globulin 2.3 g/dL (2.2-4.2); Glucose 85 mg/dL (70-99); Protein, Total 6.2 g/dL (5.9-8.4); Sodium Level 142 mmol/L (133-145); Total Bilirubin 0.28 mg/dL (0.00-1.30)
== END | disposition home or self-care (01) ==
LOC: MTLAB 08:38
PROVIDERS: PCP Family Medicine; Referring Provider Internal Medicine Rheumatology; Visit Provider Internal Medicine Rheumatology
DX: M18.0 Bilateral primary osteoarthritis of first carpometacarpal joints (principal); M17.0 Bilateral primary osteoarthritis of knee; H20.9 Unspecified iridocyclitis; H35.063 Retinal vasculitis, bilateral; Z79.899 Other long term (current) drug therapy
CPT/HCPCS: 36415; 80053; 85025

== ENCOUNTER → 2025-08-03 | Outpatient (CLI) | payer MEDICARE, OTHER, SELFPAY ==
[2025-08-03 12:43] LABS: Hematocrit 39.9 % (37-47); Hemoglobin 13.3 g/dL (12.0-15.0); Immature Granulocytes Count 0.020 X10^3/uL (0.0-0.0); Mean Corp Hgb Conc 33.3 g/dL (32-36); Mean Corpuscular Volume 100.3 fL (81-99); Mean Platelet Vol. 10.6 fl (6.2-12.0); NRBC Flagged by Analyzer 0 % (0-5); Platelet Count 203 K/mm3 (150-450); RBC Distribution Width CV 12.8 % (11.6-14.6); RBC Distribution Width SD 46.4 fl (35.1-43.9); Red Blood Count 3.98 M/mm3 (4.2-5.4); White Blood Count 6.3 K/mm3 (4.4-11.0)
[2025-08-03 13:09] LABS: AST(SGOT) 33 U/L (<=31); Alanine Aminotransfer ALT/SGPT 21 U/L (<=34); Albumin, Serum 3.9 g/dL (3.4-4.8); Alkaline Phosphatase 67 U/L (35-104); Anion Gap 10 (5-15); BUN 18 mg/dL (4-19); BUN/Creat Ratio 25.9 RATIO (10-20); Calcium,Total 9.6 mg/dL (7.6-11.0); Carbon Dioxide 24.1 mmol/L (21.0-32.0); Chloride 105 mmol/L (98-108); Globulin 2.2 g/dL (2.2-4.2); Glucose 82 mg/dL (70-99); Potassium 4.2 mmol/L (3.3-5.1)
== END | disposition home or self-care (01) ==
LOC: MTLAB 10:09
PROVIDERS: PCP Family Medicine; Referring Provider Internal Medicine Rheumatology; Visit Provider Internal Medicine Rheumatology
DX: M18.0 Bilateral primary osteoarthritis of first carpometacarpal joints (principal); M17.0 Bilateral primary osteoarthritis of knee; H35.063 Retinal vasculitis, bilateral; H20.9 Unspecified iridocyclitis; Z79.899 Other long term (current) drug therapy
CPT/HCPCS: 36415; 80053; 85025

== ENCOUNTER → 2025-10-25 | Outpatient (CLI) | payer MEDICARE, OTHER, SELFPAY ==
[2025-10-25 12:12] LABS: Hematocrit 41.7 % (37-47); Hemoglobin 13.7 g/dL (12.0-15.0); Immature Granulocytes Count 0.050 X10^3/uL (0.0-0.0); Mean Corp Hgb Conc 32.9 g/dL (32-36); Mean Corpuscular Volume 100.2 fL (81-99); Mean Platelet Vol. 10.5 fl (6.2-12.0); NRBC Flagged by Analyzer 0 % (0-5); Platelet Count 201 K/mm3 (150-450); RBC Distribution Width CV 12.7 % (11.6-14.6); RBC Distribution Width SD 46.4 fl (35.1-43.9); Red Blood Count 4.16 M/mm3 (4.2-5.4); White Blood Count 7.5 K/mm3 (4.4-11.0)
[2025-10-25 12:49] LABS: AST(SGOT) 37 U/L (<=31); Alanine Aminotransfer ALT/SGPT 31 U/L (<=34); Albumin, Serum 4.1 g/dL (3.4-4.8); Alkaline Phosphatase 83 U/L (35-104); Anion Gap 13 (5-15); BUN 17 mg/dL (4-19); BUN/Creat Ratio 22.6 RATIO (10-20); Calcium,Total 9.3 mg/dL (7.6-11.0); Carbon Dioxide 25.1 mmol/L (21.0-32.0); Chloride 105 mmol/L (98-108); Globulin 2.5 g/dL (2.2-4.2); Glucose 108 mg/dL (70-99); Potassium 3.9 mmol/L (3.3-5.1)
== END | disposition home or self-care (01) ==
LOC: MTLAB 09:30
PROVIDERS: PCP Family Medicine; Referring Provider Internal Medicine Rheumatology; Visit Provider Internal Medicine Rheumatology
DX: H20.9 Unspecified iridocyclitis (principal); Z79.899 Other long term (current) drug therapy
CPT/HCPCS: 36415; 80053; 85025